=== PATIENT | male | born 1970 | race Caucasian/White ===

== ENCOUNTER 2022-04-12 08:39 | Inpatient (IN) | payer MEDICARE, SELFPAY ==
[2022-04-12 09:25] LABS: #Basophils 0.1 10x3/uL (0.0-0.2); #Eosinphils 0.7 10x3/uL (0.0-0.5); #Monocytes 0.3 10x3/uL (0.0-1.1); #Neutrophils 6.4 10x3/uL (1.5-8.4); %Basophils 0.6 % (0.0-2.0); %Eosinophils 7.1 % (0.0-6.0); %Lymphocytes 20.8 % (18.0-47.0); %Monocytes 3.1 % (0.0-10.0); Hemoglobin 11.5 g/dL (13.5-17.5); Mean Corpuscular HGB CONC 34.2 g/dL (32.0-36.0); Mean Corpuscular Hemoglobin 29.5 pg (27.0-33.0); Mean Corpuscular Volume 86.2 fl (81.2-95.1); Mean Platelet Volume 9.2 fl (7.4-10.4); Platelet Count 182 10x3/uL (150-450); White Blood Cell (WBC) Count 9.4 10x3/uL (3.5-10.5)
[2022-04-12 09:41] LABS: ALT (SGPT) 27 U/L (8-55); AST (SGOT) 15 U/L (5-34); Albumin 3.9 g/dL (3.5-5.0); Alkaline Phosphatase 82 U/L (40-110); Anion Gap 23 mmol/L (10-20); BUN (Urea Nitrogen) 124 mg/dL (8.9-20.6); Bilirubin, Total 0.6 mg/dL (0.2-1.2); Calc. Creatinine Clearance 0 mL/min (70-130); Calcium 8.7 mg/dL (7.8-10.44); Carbon Dioxide 15 mmol/L (22-29); Chloride 100 mmol/L (98-107); Estimated GFR 4; Glucose 156 mg/dL (70-105); Potassium 4.5 mmol/L (3.5-5.1); Protein, Total 6.9 g/dL (6.0-8.3); Sodium 133 mmol/L (136-145)
[2022-04-12 10:01] LABS: CKMB 7.6 ng/mL (0-6.6)
[2022-04-12 10:12] LABS: Magnesium 1.3 mg/dL (1.6-2.6)
[2022-04-12] MEDS ORDERED: Acetaminophen 325 MG TAB PO PRN (11:35)
[2022-04-12] MEDS ORDERED: HYDROcodone/Acetaminophen 5/325 mg Tablet PO PRN (11:35)
[2022-04-12] MEDS ORDERED: Bisacodyl 5 MG TAB PO PRN (11:35)
[2022-04-12] MEDS ORDERED: Ondansetron ODT 4 MG TAB PO PRN (11:35)
[2022-04-12 14:27] LABS: HBSAg Index 0.16 S/CO (0-0.99); Hep B Surf Ag Non-Reactive S/CO (NonReactive); Thyroid Stimulating Hormone 3.7095 uIU/mL (0.35-4.94)
[2022-04-12 15:50] VITALS: BMI 30.4
[2022-04-12] MEDS: Heparin 5,000 UNITS/ML VIAL SC SCH ×2 (17:00→21:34)
[2022-04-12 17:05] LABS: Hemoglobin A1c 5.4 % (4.0-6.0)
[2022-04-12] MEDS ORDERED: Heparin 10,000 UNITS/ 10 ML VIAL SLOW IVP PRN ×3 (17:14→17:45)
[2022-04-12] MEDS: Nicotine 14 MG PATCH TD SCH (19:55)
[2022-04-12] MEDS ORDERED: Lisinopril 5 MG TAB PO SCH (21:00)
[2022-04-12] MEDS ORDERED: Venlafaxine 75 MG TAB PO SCH (21:00)
[2022-04-12] MEDS ORDERED: Famotidine 20 MG TAB PO SCH (21:00)
[2022-04-12] MEDS: Cyclobenzaprine 10 MG TAB PO SCH (21:29)
[2022-04-12 23:20] LABS: Hep B Core Total Ab Non-Reactive (NonReactive); Hep C IgG Ab Non-Reactive (NonReactive); Hep C Index 0.05 S/CO (0-0.79)
[2022-04-12 23:21] LABS: HBSAB Concentration 17.86 mIU/mL; Hep B Surf AB Reactive (NonReactive)
[2022-04-13] MEDS ORDERED: Levothyroxine Sodium 125 MCG TAB PO SCH (06:00)
[2022-04-13 06:08] LABS: #Basophils 0.1 10x3/uL (0.0-0.2); #Eosinphils 0.5 10x3/uL (0.0-0.5); #Monocytes 0.4 10x3/uL (0.0-1.1); #Neutrophils 5.6 10x3/uL (1.5-8.4); %Basophils 0.7 % (0.0-2.0); %Eosinophils 5.5 % (0.0-6.0); %Lymphocytes 20.4 % (18.0-47.0); %Monocytes 5.1 % (0.0-10.0); %Neutrophils 67.9 % (40.0-75.0); Mean Corpuscular HGB CONC 34.4 g/dL (32.0-36.0); Mean Corpuscular Hemoglobin 29.6 pg (27.0-33.0); Mean Platelet Volume 9.4 fl (7.4-10.4); Platelet Count 173 10x3/uL (150-450); RBC Distribution Width 13.1 % (11.5-14.5); Red Blood Cell (RBC) Count 3.72 10x6/uL (4.32-5.72); White Blood Cell (WBC) Count 8.2 10x3/uL (3.5-10.5)
[2022-04-13 06:22] LABS: Albumin 3.6 g/dL (3.5-5.0); Anion Gap 20 mmol/L (10-20); BUN (Urea Nitrogen) 83 mg/dL (8.9-20.6); BUN/Creatinine Ratio 8.04; Calc. Creatinine Clearance 12 mL/min (70-130); Calcium 9.5 mg/dL (7.8-10.44); Carbon Dioxide 21 mmol/L (22-29); Chloride 100 mmol/L (98-107); Estimated GFR 6; Glucose 100 mg/dL (70-105); Phosphorus 8.8 mg/dL (2.3-4.7); Potassium 4.5 mmol/L (3.5-5.1); Sodium 136 mmol/L (136-145)
[2022-04-13] MEDS: Heparin 5,000 UNITS/ML VIAL SC SCH ×2 (09:33→15:05)
[2022-04-13] MEDS: Cyclobenzaprine 10 MG TAB PO SCH (09:34)
[2022-04-13 10:28] LABS: SARS-CoV-2 NAA Rapid Test Not Detected (NotDetected)
[2022-04-13] MEDS: Nicotine 14 MG PATCH TD SCH (15:06)
[2022-04-13 17:55] VITALS: BP 135/82; TEMP 98.4
== END 2022-04-13 17:45 | disposition home or self-care (01) | DRG 684 ==
LOC: CSHERS 08:39 → CSHTELE 15:39
PROVIDERS: ADMIT Family Medicine; ATTEND Nurse Practitioner Family
PROC: 5A1D70Z Performance of Urinary Filtration, Intermittent, Less than 6 Hours Per Day (ICD-10-PCS; principal; 2022-04-13)
DX: N18.6 End stage renal disease (principal); Z20.822 Contact with and (suspected) exposure to COVID-19; E03.9 Hypothyroidism, unspecified; R77.8 Other specified abnormalities of plasma proteins; F17.210 Nicotine dependence, cigarettes, uncomplicated; F41.9 Anxiety disorder, unspecified; I10 Essential (primary) hypertension; E78.5 Hyperlipidemia, unspecified; F32.A Depression, unspecified; E11.42 Type 2 diabetes mellitus with diabetic polyneuropathy; M10.9 Gout, unspecified; G43.909 Migraine, unspecified, not intractable, without status migrainosus; E66.01 Morbid (severe) obesity due to excess calories; Z68.30 Body mass index [BMI] 30.0-30.9, adult; Z99.2 Dependence on renal dialysis; Z91.15 Patient's noncompliance with renal dialysis; Z71.6 Tobacco abuse counseling; Z90.49 Acquired absence of other specified parts of digestive tract; Z90.5 Acquired absence of kidney; Z79.890 Hormone replacement therapy; Z79.899 Other long term (current) drug therapy; Z79.4 Long term (current) use of insulin
CPT/HCPCS: 36415; 71045; 80053; 80069; 82553; 83036; 83735; 83880; 84443; 84484; 85025; 86704; 90935; 93005; 93010; G0257; J1644; Q0162; U0002

== ENCOUNTER 2022-05-16 07:03 | Inpatient (IN) | payer MEDICARE ==
[2022-05-16 07:54] LABS: #Eosinphils 0.3 10x3/uL (0.0-0.5); #Monocytes 0.5 10x3/uL (0.0-1.1); #Neutrophils 9.7 10x3/uL (1.5-8.4); %Basophils 0.3 % (0.0-2.0); %Eosinophils 2.6 % (0.0-6.0); %Lymphocytes 10.3 % (18.0-47.0); %Monocytes 4.4 % (0.0-10.0); %Neutrophils 81.8 % (40.0-75.0); Hemoglobin 9.1 g/dL (13.5-17.5); Mean Corpuscular HGB CONC 34.9 g/dL (32.0-36.0); Mean Corpuscular Hemoglobin 29.8 pg (27.0-33.0); Mean Corpuscular Volume 85.6 fl (81.2-95.1); Platelet Count 173 10x3/uL (150-450); RBC Distribution Width 13.2 % (11.5-14.5); Red Blood Cell (RBC) Count 3.05 10x6/uL (4.32-5.72); White Blood Cell (WBC) Count 11.8 10x3/uL (3.5-10.5)
[2022-05-16 08:21] LABS: ALT (SGPT) 34 U/L (8-55); AST (SGOT) 15 U/L (5-34); Albumin 3.7 g/dL (3.5-5.0); Alkaline Phosphatase 102 U/L (40-110); Anion Gap 30 mmol/L (10-20); Bilirubin, Total 0.7 mg/dL (0.2-1.2); Calc. Creatinine Clearance 0 mL/min (70-130); Carbon Dioxide 12 mmol/L (22-29); Chloride 95 mmol/L (98-107); Estimated GFR 3; Globulin 2.8 g/dL (2.4-3.5); Glucose 113 mg/dL (70-105); Magnesium 1.2 mg/dL (1.6-2.6); Potassium 4.6 mmol/L (3.5-5.1); Protein, Total 6.5 g/dL (6.0-8.3); Sodium 132 mmol/L (136-145)
[2022-05-16 08:26] LABS: Phosphorus 14.8 mg/dL (2.3-4.7)
[2022-05-16 08:45] LABS: BUN (Urea Nitrogen) 150 mg/dL (8.9-20.6)
[2022-05-16] MEDS ORDERED: Ondansetron PF 4 MG/2 ML Vial IVP PRN (09:49)
[2022-05-16] MEDS ORDERED: Acetaminophen 325 MG TAB PO PRN (09:49)
[2022-05-16] MEDS ORDERED: Dextrose 50% Abboject 50 ML SYRINGE SLOW IVP PRN (10:17)
[2022-05-16] MEDS ORDERED: HumaLOG 300 UNITS/3 ML VIAL SC PRN ×2 (10:17)
[2022-05-16] MEDS ORDERED: Dextrose 5% in Water 1,000 ML IV PRN (10:17)
[2022-05-16] MEDS ORDERED: Magnesium 2 GM/50 ML(in water) 2 GM in Premix Bag 1 BAG IVPB SCH ×2 (10:30→22:30)
[2022-05-16] MEDS ORDERED: Heparin 10,000 UNITS/ 10 ML VIAL SLOW IVP PRN (11:49)
[2022-05-16 13:01] LABS: Glucose 104 mg/dL (70-105)
[2022-05-16] MEDS: Gabapentin 300 MG CAP PO SCH (17:47)
[2022-05-16] MEDS: Nicotine 14 MG PATCH TD SCH (17:48)
[2022-05-16 18:41] LABS: Glucose 132 mg/dL (70-105)
[2022-05-16] MEDS ORDERED: Venlafaxine 75 MG TAB PO SCH (21:00)
[2022-05-16] MEDS ORDERED: Lisinopril 10 MG TAB PO SCH (21:00)
[2022-05-16 21:47] LABS: Glucose 98 mg/dL (70-105)
[2022-05-16] MEDS: Ondansetron ODT 4 MG TAB PO PRN (21:56)
[2022-05-17] MEDS: Gabapentin 300 MG CAP PO SCH ×3 (00:52→13:11)
[2022-05-17 05:06] LABS: #Eosinphils 0.2 10x3/uL (0.0-0.5); #Monocytes 0.4 10x3/uL (0.0-1.1); #Neutrophils 8.5 10x3/uL (1.5-8.4); %Basophils 0.3 % (0.0-2.0); %Eosinophils 1.9 % (0.0-6.0); %Lymphocytes 6.3 % (18.0-47.0); %Monocytes 3.6 % (0.0-10.0); %Neutrophils 87.3 % (40.0-75.0); Mean Corpuscular HGB CONC 34.4 g/dL (32.0-36.0); Mean Corpuscular Hemoglobin 29.6 pg (27.0-33.0); Mean Corpuscular Volume 86.2 fl (81.2-95.1); Mean Platelet Volume 10.3 fl (7.4-10.4); Platelet Count 162 10x3/uL (150-450); RBC Distribution Width 13.2 % (11.5-14.5); Red Blood Cell (RBC) Count 3.04 10x6/uL (4.32-5.72); White Blood Cell (WBC) Count 9.8 10x3/uL (3.5-10.5)
[2022-05-17 05:22] LABS: Anion Gap 24 mmol/L (10-20); BUN (Urea Nitrogen) 96 mg/dL (8.9-20.6); Calc. Creatinine Clearance 0 mL/min (70-130); Calcium 9.7 mg/dL (7.8-10.44); Carbon Dioxide 17 mmol/L (22-29); Chloride 96 mmol/L (98-107); Estimated GFR 5; Glucose 117 mg/dL (70-105); Magnesium 1.8 mg/dL (1.6-2.6); Potassium 4.1 mmol/L (3.5-5.1); Sodium 133 mmol/L (136-145)
[2022-05-17] MEDS ORDERED: Levothyroxine Sodium 125 MCG TAB PO SCH (06:00)
[2022-05-17] MEDS: Ondansetron ODT 4 MG TAB PO PRN ×3 (08:29→22:49)
[2022-05-17 09:05] LABS: Glucose 109 mg/dL (70-105)
[2022-05-17 12:01] VITALS: BMI 28.4
[2022-05-17 12:23] LABS: Glucose 98 mg/dL (70-105)
[2022-05-17] MEDS: Sevelamer Carbonate 800 MG TAB PO SCH ×2 (13:10→16:50)
[2022-05-17] MEDS: Nicotine 14 MG PATCH TD SCH (13:13)
[2022-05-17] MEDS: Nicotine 14 MG PATCH TD PRN (16:51)
[2022-05-17 18:18] LABS: Glucose 86 mg/dL (70-105)
[2022-05-18 05:17] LABS: #Eosinphils 0.3 10x3/uL (0.0-0.5); #Monocytes 0.4 10x3/uL (0.0-1.1); #Neutrophils 5.3 10x3/uL (1.5-8.4); %Basophils 0.4 % (0.0-2.0); %Eosinophils 4.4 % (0.0-6.0); %Lymphocytes 17.6 % (18.0-47.0); %Monocytes 5.3 % (0.0-10.0); %Neutrophils 71.9 % (40.0-75.0); Hemoglobin 8.7 g/dL (13.5-17.5); Mean Corpuscular HGB CONC 34.7 g/dL (32.0-36.0); Mean Corpuscular Hemoglobin 29.8 pg (27.0-33.0); Mean Platelet Volume 10.1 fl (7.4-10.4); Platelet Count 175 10x3/uL (150-450); RBC Distribution Width 13.2 % (11.5-14.5); Red Blood Cell (RBC) Count 2.92 10x6/uL (4.32-5.72); White Blood Cell (WBC) Count 7.3 10x3/uL (3.5-10.5)
[2022-05-18 05:26] LABS: Anion Gap 19 mmol/L (10-20); BUN (Urea Nitrogen) 49 mg/dL (8.9-20.6); Calc. Creatinine Clearance 16 mL/min (70-130); Calcium 9.7 mg/dL (7.8-10.44); Carbon Dioxide 24 mmol/L (22-29); Chloride 96 mmol/L (98-107); Estimated GFR 8; Glucose 83 mg/dL (70-105); Potassium 3.8 mmol/L (3.5-5.1); Sodium 135 mmol/L (136-145)
[2022-05-18] MEDS: Sevelamer Carbonate 800 MG TAB PO SCH ×3 (08:11→18:33)
[2022-05-18] MEDS ORDERED: EPOETIN ALFA-EPBX (ESRD) 4,000 UNIT/ML VIAL SC SCH (09:00)
[2022-05-18] MEDS ORDERED: Sodium Chloride 0.9% 100 ML BAG IVPB PRN (09:45)
[2022-05-18] MEDS: hydrOXYzine 25 MG TAB PO PRN (20:46)
[2022-05-18] MEDS: Nicotine 14 MG PATCH TD PRN (20:51)
[2022-05-19 04:11] LABS: #Basophils 0.1 10x3/uL (0.0-0.2); #Eosinphils 0.4 10x3/uL (0.0-0.5); #Monocytes 0.5 10x3/uL (0.0-1.1); #Neutrophils 5.2 10x3/uL (1.5-8.4); %Basophils 0.6 % (0.0-2.0); %Eosinophils 4.7 % (0.0-6.0); %Lymphocytes 25.3 % (18.0-47.0); %Monocytes 6.1 % (0.0-10.0); %Neutrophils 62.8 % (40.0-75.0); Hemoglobin 8.7 g/dL (13.5-17.5); Mean Corpuscular HGB CONC 34.3 g/dL (32.0-36.0); Mean Corpuscular Volume 87.6 fl (81.2-95.1); Mean Platelet Volume 9.6 fl (7.4-10.4); Platelet Count 180 10x3/uL (150-450); RBC Distribution Width 13.2 % (11.5-14.5); White Blood Cell (WBC) Count 8.3 10x3/uL (3.5-10.5)
[2022-05-19 04:21] LABS: Anion Gap 15 mmol/L (10-20); BUN (Urea Nitrogen) 24 mg/dL (8.9-20.6); Calc. Creatinine Clearance 23 mL/min (70-130); Calcium 9.5 mg/dL (7.8-10.44); Carbon Dioxide 26 mmol/L (22-29); Chloride 96 mmol/L (98-107); Estimated GFR 13; Glucose 83 mg/dL (70-105); Potassium 3.3 mmol/L (3.5-5.1); Sodium 134 mmol/L (136-145)
[2022-05-19] MEDS: hydrOXYzine 25 MG TAB PO PRN ×2 (06:18→12:49)
[2022-05-19] MEDS: Sevelamer Carbonate 800 MG TAB PO SCH ×2 (08:07→12:36)
[2022-05-19] MEDS ORDERED: Heparin 10,000 UNITS/ 10 ML VIAL SLOW IVP PRN (11:30)
[2022-05-19 14:57] VITALS: BP 115/70; TEMP 98.8
== END 2022-05-19 14:30 | disposition home or self-care (01) | DRG 640 ==
LOC: CSHERS 07:03 → CSHERHOLD 12:09 → CSHTELE 16:40 → OBSVTOIN 05-18 08:10
PROVIDERS: ADMIT Family Medicine; ATTEND Internal Medicine
PROC: 5A1D70Z Performance of Urinary Filtration, Intermittent, Less than 6 Hours Per Day (ICD-10-PCS; principal; 2022-05-18)
DX: E87.70 Fluid overload, unspecified (principal); N18.6 End stage renal disease; I12.0 Hypertensive chronic kidney disease with stage 5 chronic kidney disease or end stage renal disease; N25.81 Secondary hyperparathyroidism of renal origin; E83.42 Hypomagnesemia; E11.22 Type 2 diabetes mellitus with diabetic chronic kidney disease; E87.20 Acidosis, unspecified; E78.5 Hyperlipidemia, unspecified; F17.210 Nicotine dependence, cigarettes, uncomplicated; Z60.2 Problems related to living alone; F41.9 Anxiety disorder, unspecified; E03.9 Hypothyroidism, unspecified; D63.1 Anemia in chronic kidney disease; F32.A Depression, unspecified; Z90.5 Acquired absence of kidney; Z79.4 Long term (current) use of insulin; Z79.890 Hormone replacement therapy; Z91.151 Patient's noncompliance with renal dialysis due to financial hardship; Z99.2 Dependence on renal dialysis; Z79.899 Other long term (current) drug therapy; Z90.49 Acquired absence of other specified parts of digestive tract; Z56.0 Unemployment, unspecified; Z71.6 Tobacco abuse counseling
CPT/HCPCS: 36415; 36416; 71045; 80048; 80053; 82947; 83735; 83880; 84100; 84443; 85025; 90935; 93005; 94760; 96374; 96375; G0257; G0378; J1644; J2405; J3475; Q0162; Q5105

== ENCOUNTER 2022-07-15 06:11 | Inpatient (IN) | payer MEDICARE ==
[2022-07-15] MEDS ORDERED: Nitroglycerin 2% Ointment 1 INCH/1 GM Packet ONE (06:39)
[2022-07-15] MEDS ORDERED: Aspirin Chewable 81 MG TAB ONE (06:47)
[2022-07-15 07:03] LABS: #Eosinphils 0.1 10x3/uL (0.0-0.5); #Monocytes 0.3 10x3/uL (0.0-1.1); #Neutrophils 9.2 10x3/uL (1.5-8.4); %Basophils 0.2 % (0.0-2.0); %Eosinophils 1.1 % (0.0-6.0); %Lymphocytes 3.8 % (18.0-47.0); %Monocytes 2.6 % (0.0-10.0); %Neutrophils 91.7 % (40.0-75.0); Hemoglobin 7.9 g/dL (13.5-17.5); Mean Corpuscular HGB CONC 34.1 g/dL (32.0-36.0); Mean Corpuscular Hemoglobin 30.4 pg (27.0-33.0); Mean Corpuscular Volume 89.2 fl (81.2-95.1); Mean Platelet Volume 9.8 fl (7.4-10.4); Platelet Count 147 10x3/uL (150-450); RBC Distribution Width 13.5 % (11.5-14.5); White Blood Cell (WBC) Count 10.1 10x3/uL (3.5-10.5)
[2022-07-15 07:15] LABS: ALT (SGPT) 16 U/L (8-55); AST (SGOT) 13 U/L (5-34); Albumin 3.8 g/dL (3.5-5.0); Alkaline Phosphatase 98 U/L (40-110); Anion Gap 31 mmol/L (10-20); Bilirubin, Total 1.2 mg/dL (0.2-1.2); Calc. Creatinine Clearance 0 mL/min (70-130); Calcium 9.4 mg/dL (7.8-10.44); Chloride 96 mmol/L (98-107); Estimated GFR 3; Globulin 3.4 g/dL (2.4-3.5); Glucose 114 mg/dL (70-105); Lipase 21 U/L (8-78); Potassium 5.2 mmol/L (3.5-5.1); Protein, Total 7.2 g/dL (6.0-8.3); Sodium 131 mmol/L (136-145)
[2022-07-15 07:20] LABS: Carbon Dioxide 9 mmol/L (22-29)
[2022-07-15 07:25] LABS: BUN (Urea Nitrogen) 142 mg/dL (8.9-20.6)
[2022-07-15 07:37] LABS: CKMB 16.5 ng/mL (0-6.6)
[2022-07-15] MEDS ORDERED: Lidocaine/Transparent Dressing 1 EACH KIT ONE (09:43)
[2022-07-15] MEDS ORDERED: Ondansetron ODT 4 MG TAB PO PRN (09:47)
[2022-07-15] MEDS ORDERED: Calcium Carbonate 500 MG ChewTAB PO PRN (09:47)
[2022-07-15] MEDS ORDERED: Ondansetron PF 4 MG/2 ML Vial IVP PRN (09:47)
[2022-07-15] MEDS ORDERED: Acetaminophen 325 MG TAB PO PRN (09:47)
[2022-07-15] MEDS ORDERED: Senokot S 8.6-50 MG TAB PO PRN (09:47)
[2022-07-15] MEDS ORDERED: Magnesium Sulfate 4 GM in Sodium Chloride 0.9% 250 ML 250 ML IVPB SCH (10:00)
[2022-07-15 10:29] LABS: HBSAg Index 0.12 S/CO (0-0.99); Hep B Surf Ag Non-Reactive S/CO (NonReactive)
[2022-07-15] MEDS ORDERED: Morphine 4 MG/ML VIAL ONE (10:30)
[2022-07-15] MEDS ORDERED: Morphine 4 MG/ML VIAL SLOW IVP SCH (10:30)
[2022-07-15 11:25] LABS: Troponin I 0.196 ng/mL (< 0.028)
[2022-07-15] MEDS ORDERED: Heparin 10,000 UNITS/ 10 ML VIAL FS PRN (11:29)
[2022-07-15] MEDS ORDERED: EPOETIN ALFA-EPBX (ESRD) 4,000 UNITS/ML VIAL SC SCH ×2 (12:00→17:30)
[2022-07-15] MEDS ORDERED: Sodium Bicarb 50 MEQ/50 ML Abboject 8.4% SYRINGE IVP SCH (12:30)
[2022-07-15 15:49] LABS: Troponin I 0.203 ng/mL (< 0.028)
[2022-07-15 15:50] LABS: Anion Gap 21 mmol/L (10-20); BUN (Urea Nitrogen) 69 mg/dL (8.9-20.6); Calc. Creatinine Clearance 0 mL/min (70-130); Calcium 9.9 mg/dL (7.8-10.44); Carbon Dioxide 24 mmol/L (22-29); Chloride 96 mmol/L (98-107); Estimated GFR 6; Glucose 88 mg/dL (70-105); Magnesium 1.4 mg/dL (1.6-2.6); Potassium 3.8 mmol/L (3.5-5.1); Sodium 137 mmol/L (136-145)
[2022-07-15 16:09] LABS: ALV-art Gradient 101.515 mmHg (0-20); Actual Bicarbonate (HCO3a) 25.6 mEq/L (22-28); Base Excess (BEa) 3.3 mEq/L (-2.0 to +3.0); CO2 Tension 29.7 mmHg (35.0-45.0); Calcium, Ionized (arterial) 1.05 mmol/L (1.12-1.30); Hematocrit-ABG 25 % (42.0-52.0); Hemoglobin (Hb) 8.4 g/dL (14.0-18.0); Potassium - ABG Lab 3.73 mmol/L (3.70-5.30); Puncture Site RBA; pH, Arterial 7.553 (7.35-7.45)
[2022-07-15 16:28] VITALS: BMI 28.5
[2022-07-15] MEDS: Sevelamer Carbonate 800 MG TAB PO SCH ×2 (17:22→19:15)
[2022-07-15] MEDS: Heparin 5,000 UNITS/ML VIAL SC SCH ×2 (17:23→21:33)
[2022-07-15 17:37] LABS: Hep B Core Total Ab Non-Reactive (NonReactive); Hep B Core Total Index 0.16 S/CO (0-0.79); Hep C IgG Ab Non-Reactive S/CO (NonReactive)
[2022-07-15 17:40] LABS: HBSAB Concentration 20.78 mIU/mL; Hep B Surf AB Reactive (NonReactive)
[2022-07-15] MEDS: Magnesium 2 GM/50 ML(in water) 2 GM in Premix Bag 1 BAG IVPB SCH ×4 (18:12→21:31)
[2022-07-15] MEDS: Sodium Bicarbonate Tab 325 MG TAB PO SCH ×2 (18:13→21:34)
[2022-07-15 18:29] LABS: Troponin I 0.203 ng/mL (< 0.028)
[2022-07-15] MEDS ORDERED: Nicotine 7 MG PATCH TOP SCH (20:45)
[2022-07-15] MEDS: Nitroglycerin 2% Ointment 1 INCH/1 GM Packet TOP SCH (21:34)
[2022-07-15 22:26] LABS: Troponin I 0.207 ng/mL (< 0.028)
[2022-07-16] MEDS: Morphine 2 MG/ML VIAL SLOW IVP PRN ×2 (01:44→06:37)
[2022-07-16 03:47] LABS: #Monocytes 0.3 10x3/uL (0.0-1.1); #Neutrophils 7.6 10x3/uL (1.5-8.4); %Basophils 0.1 % (0.0-2.0); %Eosinophils 0.4 % (0.0-6.0); %Lymphocytes 7.6 % (18.0-47.0); %Neutrophils 88.2 % (40.0-75.0); Hemoglobin 7.9 g/dL (13.5-17.5); Mean Corpuscular HGB CONC 34.8 g/dL (32.0-36.0); Mean Corpuscular Hemoglobin 30.4 pg (27.0-33.0); Mean Corpuscular Volume 87.3 fl (81.2-95.1); Mean Platelet Volume 9.5 fl (7.4-10.4); Platelet Count 140 10x3/uL (150-450); RBC Distribution Width 13.4 % (11.5-14.5); White Blood Cell (WBC) Count 8.6 10x3/uL (3.5-10.5)
[2022-07-16 04:00] LABS: ALT (SGPT) 18 U/L (8-55); AST (SGOT) 16 U/L (5-34); Albumin 3.6 g/dL (3.5-5.0); Alkaline Phosphatase 90 U/L (40-110); Anion Gap 19 mmol/L (10-20); BUN (Urea Nitrogen) 56 mg/dL (8.9-20.6); Bilirubin, Total 1.3 mg/dL (0.2-1.2); Calc. Creatinine Clearance 15 mL/min (70-130); Calcium 9.9 mg/dL (7.8-10.44); Carbon Dioxide 26 mmol/L (22-29); Chloride 97 mmol/L (98-107); Estimated GFR 7; Globulin 3.5 g/dL (2.4-3.5); Glucose 103 mg/dL (70-105); Magnesium 2.2 mg/dL (1.6-2.6); Potassium 3.7 mmol/L (3.5-5.1); Protein, Total 7.1 g/dL (6.0-8.3); Sodium 138 mmol/L (136-145)
[2022-07-16 04:03] LABS: Cardiac Risk 3.3 (Less than 4.5); Cholesterol 105 mg/dl (< 200 Desired); HDL Cholesterol 32 mg/dL (>60 Neg Risk); LDL Cholesterol, Calculated 60 mg/dL; Phosphorus 5.1 mg/dL (2.3-4.7); Triglycerides 64 mg/dL (Less than 150)
[2022-07-16] MEDS: Guaifenesin DM 100-10/5 ML UDCUP PO PRN ×2 (06:37)
[2022-07-16] MEDS: Aspirin 81 mg Enteric Coated Tablet PO SCH (09:12)
[2022-07-16] MEDS: Nitroglycerin 2% Ointment 1 INCH/1 GM Packet TOP SCH ×2 (09:12→20:36)
[2022-07-16] MEDS: Sodium Bicarbonate Tab 325 MG TAB PO SCH ×3 (09:12→20:35)
[2022-07-16] MEDS: Sevelamer Carbonate 800 MG TAB PO SCH ×3 (09:13→17:48)
[2022-07-16] MEDS: Heparin 5,000 UNITS/ML VIAL SC SCH ×3 (09:27→20:36)
[2022-07-16] MEDS ORDERED: Carvedilol 3.125 MG TAB PO SCH (10:45)
[2022-07-16 12:08] LABS: Hemoglobin A1c 5.3 % (4.0-6.0)
[2022-07-16] MEDS: Carvedilol 3.125 MG TAB PO SCH (17:48)
[2022-07-16] MEDS: Atorvastatin Calcium 20 MG TAB PO SCH (20:35)
[2022-07-17 04:53] LABS: #Eosinphils 0.2 10x3/uL (0.0-0.5); #Monocytes 0.4 10x3/uL (0.0-1.1); #Neutrophils 7.1 10x3/uL (1.5-8.4); %Basophils 0.3 % (0.0-2.0); %Eosinophils 1.9 % (0.0-6.0); %Lymphocytes 10.8 % (18.0-47.0); %Monocytes 4.7 % (0.0-10.0); %Neutrophils 81.7 % (40.0-75.0); Hemoglobin 7.5 g/dL (13.5-17.5); Mean Corpuscular HGB CONC 32.6 g/dL (32.0-36.0); Mean Corpuscular Hemoglobin 30.2 pg (27.0-33.0); Mean Corpuscular Volume 92.7 fl (81.2-95.1); Mean Platelet Volume 9.8 fl (7.4-10.4); Platelet Count 128 10x3/uL (150-450); RBC Distribution Width 13.5 % (11.5-14.5); Red Blood Cell (RBC) Count 2.48 10x6/uL (4.32-5.72); White Blood Cell (WBC) Count 8.7 10x3/uL (3.5-10.5)
[2022-07-17 05:16] LABS: Anion Gap 17 mmol/L (10-20); BUN (Urea Nitrogen) 45 mg/dL (8.9-20.6); Calc. Creatinine Clearance 15 mL/min (70-130); Calcium 9.8 mg/dL (7.8-10.44); Carbon Dioxide 31 mmol/L (22-29); Chloride 94 mmol/L (98-107); Estimated GFR 7; Glucose 102 mg/dL (70-105); Magnesium 1.9 mg/dL (1.6-2.6); Phosphorus 6.5 mg/dL (2.3-4.7); Potassium 4.2 mmol/L (3.5-5.1); Sodium 138 mmol/L (136-145)
[2022-07-17] MEDS: Morphine 2 MG/ML VIAL SLOW IVP PRN (05:49)
[2022-07-17] MEDS: Heparin 5,000 UNITS/ML VIAL SC SCH ×3 (08:24→21:14)
[2022-07-17] MEDS: Sevelamer Carbonate 800 MG TAB PO SCH ×3 (08:24→16:02)
[2022-07-17] MEDS: Sodium Bicarbonate Tab 325 MG TAB PO SCH (08:25)
[2022-07-17] MEDS: Aspirin 81 mg Enteric Coated Tablet PO SCH (08:25)
[2022-07-17] MEDS: Nitroglycerin 2% Ointment 1 INCH/1 GM Packet TOP SCH ×2 (08:39→21:15)
[2022-07-17] MEDS: Carvedilol 3.125 MG TAB PO SCH ×2 (08:39→16:02)
[2022-07-17] MEDS ORDERED: Communication Order-Pharmacy FS SCH (10:30)
[2022-07-17] MEDS: Nicotine 14 MG PATCH TD SCH (12:58)
[2022-07-17] MEDS: Atorvastatin Calcium 20 MG TAB PO SCH (21:14)
[2022-07-18 03:43] LABS: INR-International Normal Ratio 1.1; PTT 27.3 sec (22.0-33.0); Prothrombin Time 11.5 sec (9.5-12.1)
[2022-07-18 03:44] LABS: #Eosinphils 0.3 10x3/uL (0.0-0.5); #Monocytes 0.4 10x3/uL (0.0-1.1); %Basophils 0.4 % (0.0-2.0); %Eosinophils 3.3 % (0.0-6.0); %Monocytes 3.9 % (0.0-10.0); %Neutrophils 78.8 % (40.0-75.0); Mean Corpuscular HGB CONC 31.5 g/dL (32.0-36.0); Mean Corpuscular Hemoglobin 29.9 pg (27.0-33.0); Mean Corpuscular Volume 94.9 fl (81.2-95.1); Mean Platelet Volume 10.4 fl (7.4-10.4); Platelet Count 127 10x3/uL (150-450); RBC Distribution Width 13.1 % (11.5-14.5); Red Blood Cell (RBC) Count 2.34 10x6/uL (4.32-5.72); White Blood Cell (WBC) Count 8.9 10x3/uL (3.5-10.5)
[2022-07-18 03:49] LABS: ALT (SGPT) 12 U/L (8-55); AST (SGOT) 11 U/L (5-34); Albumin 3.1 g/dL (3.5-5.0); Alkaline Phosphatase 74 U/L (40-110); Anion Gap 15 mmol/L (10-20); BUN (Urea Nitrogen) 28 mg/dL (8.9-20.6); Bilirubin, Total 0.8 mg/dL (0.2-1.2); Calc. Creatinine Clearance 20 mL/min (70-130); Calcium 9.4 mg/dL (7.8-10.44); Carbon Dioxide 29 mmol/L (22-29); Chloride 96 mmol/L (98-107); Estimated GFR 11; Globulin 3.2 g/dL (2.4-3.5); Glucose 102 mg/dL (70-105); Magnesium 1.7 mg/dL (1.6-2.6); Protein, Total 6.3 g/dL (6.0-8.3); Sodium 136 mmol/L (136-145)
[2022-07-18] MEDS ORDERED: Carvedilol 3.125 MG TAB PO SCH (05:30)
[2022-07-18] MEDS: Aspirin 81 mg Enteric Coated Tablet PO SCH (06:50)
[2022-07-18] MEDS: Heparin 5,000 UNITS/ML VIAL SC SCH ×3 (08:09→20:24)
[2022-07-18] MEDS: Sevelamer Carbonate 800 MG TAB PO SCH ×4 (08:09→17:55)
[2022-07-18] MEDS: Nitroglycerin 2% Ointment 1 INCH/1 GM Packet TOP SCH ×2 (08:09→20:24)
[2022-07-18] MEDS ORDERED: Lidocaine 1% MPF 2 ML VIAL ONE (08:43)
[2022-07-18] MEDS ORDERED: Nitroglycerin 50 MG/250 ML BOT 250 ML ONE (08:43)
[2022-07-18] MEDS ORDERED: Heparin 10,000 UNITS/ 10 ML VIAL ONE (08:44)
[2022-07-18] MEDS ORDERED: Lidocaine 1% (PF) 30 ML VIAL ONE (08:44)
[2022-07-18] MEDS ORDERED: Sodium Chloride 0.9% 1,000 ML ONE (08:45)
[2022-07-18] MEDS ORDERED: Adenosine 6 MG/2 ML VIAL ONE (08:45)
[2022-07-18] MEDS ORDERED: Verapamil 5 MG/2 ML VIAL ONE (08:45)
[2022-07-18] MEDS ORDERED: Magnesium 2 GM/50 ML(in water) 2 GM in Premix Bag 1 BAG IVPB SCH ×2 (09:00→11:15)
[2022-07-18] MEDS ORDERED: fentaNYL 50 mcg/mL 1 mL Vial ONE (09:23)
[2022-07-18] MEDS ORDERED: Midazolam HCl 2 mg/2 ml Vial ONE (09:24)
[2022-07-18] MEDS ORDERED: Iopamidol 300 61% 100 ML VIAL FS ONE (09:32)
[2022-07-18] MEDS ORDERED: Acetaminophen/Codeine 30-300mg Tablet PO PRN ×2 (09:57)
[2022-07-18] MEDS ORDERED: Nitroglycerin 0.4 MG TAB (25 Tab Bottle) SL PRN (09:57)
[2022-07-18] MEDS ORDERED: Sodium Chloride 0.9% 200 ML IV PRN (09:57)
[2022-07-18] MEDS: Nicotine 14 MG PATCH TD SCH (12:33)
[2022-07-18] MEDS: Carvedilol 3.125 MG TAB PO SCH (17:28)
[2022-07-18] MEDS: Atorvastatin Calcium 20 MG TAB PO SCH (20:24)
[2022-07-19 04:03] LABS: #Basophils 0.1 10x3/uL (0.0-0.2); #Eosinphils 0.4 10x3/uL (0.0-0.5); #Monocytes 0.4 10x3/uL (0.0-1.1); #Neutrophils 5.9 10x3/uL (1.5-8.4); %Basophils 0.6 % (0.0-2.0); %Eosinophils 5.1 % (0.0-6.0); %Lymphocytes 14.1 % (18.0-47.0); %Monocytes 5.2 % (0.0-10.0); %Neutrophils 74.2 % (40.0-75.0); Hemoglobin 8.4 g/dL (13.5-17.5); Mean Corpuscular HGB CONC 32.8 g/dL (32.0-36.0); Mean Corpuscular Hemoglobin 30.5 pg (27.0-33.0); Mean Corpuscular Volume 93.1 fl (81.2-95.1); Mean Platelet Volume 10.1 fl (7.4-10.4); Platelet Count 123 10x3/uL (150-450); RBC Distribution Width 13.8 % (11.5-14.5); Red Blood Cell (RBC) Count 2.75 10x6/uL (4.32-5.72); White Blood Cell (WBC) Count 7.9 10x3/uL (3.5-10.5)
[2022-07-19 04:16] LABS: Anion Gap 13 mmol/L (10-20); BUN (Urea Nitrogen) 22 mg/dL (8.9-20.6); Calc. Creatinine Clearance 24 mL/min (70-130); Calcium 9.7 mg/dL (7.8-10.44); Carbon Dioxide 29 mmol/L (22-29); Chloride 97 mmol/L (98-107); Estimated GFR 14; Glucose 93 mg/dL (70-105); Potassium 4.2 mmol/L (3.5-5.1); Sodium 135 mmol/L (136-145)
[2022-07-19] MEDS: Heparin 5,000 UNITS/ML VIAL SC SCH ×3 (08:03→21:34)
[2022-07-19] MEDS: Sevelamer Carbonate 800 MG TAB PO SCH ×3 (08:04→18:06)
[2022-07-19] MEDS: Aspirin 81 mg Enteric Coated Tablet PO SCH (08:05)
[2022-07-19] MEDS: Carvedilol 3.125 MG TAB PO SCH ×2 (08:05→18:06)
[2022-07-19] MEDS: Nitroglycerin 2% Ointment 1 INCH/1 GM Packet TOP SCH ×2 (08:05→21:47)
[2022-07-19] MEDS: Nicotine 14 MG PATCH TD SCH (13:16)
[2022-07-19] MEDS: Atorvastatin Calcium 20 MG TAB PO SCH (21:36)
[2022-07-20 04:24] LABS: #Eosinphils 0.5 10x3/uL (0.0-0.5); #Monocytes 0.5 10x3/uL (0.0-1.1); #Neutrophils 6.5 10x3/uL (1.5-8.4); %Basophils 0.5 % (0.0-2.0); %Eosinophils 5.4 % (0.0-6.0); %Lymphocytes 14.7 % (18.0-47.0); %Monocytes 5.5 % (0.0-10.0); %Neutrophils 73.4 % (40.0-75.0); Hemoglobin 7.8 g/dL (13.5-17.5); Mean Corpuscular HGB CONC 32.4 g/dL (32.0-36.0); Mean Corpuscular Hemoglobin 30.5 pg (27.0-33.0); Mean Corpuscular Volume 94.1 fl (81.2-95.1); Mean Platelet Volume 9.9 fl (7.4-10.4); Platelet Count 127 10x3/uL (150-450); RBC Distribution Width 13.4 % (11.5-14.5); Red Blood Cell (RBC) Count 2.56 10x6/uL (4.32-5.72); White Blood Cell (WBC) Count 8.8 10x3/uL (3.5-10.5)
[2022-07-20 04:39] LABS: ALT (SGPT) 12 U/L (8-55); AST (SGOT) 12 U/L (5-34); Albumin 3.1 g/dL (3.5-5.0); Alkaline Phosphatase 94 U/L (40-110); Anion Gap 15 mmol/L (10-20); BUN (Urea Nitrogen) 18 mg/dL (8.9-20.6); Calc. Creatinine Clearance 26 mL/min (70-130); Calcium 9.1 mg/dL (7.8-10.44); Carbon Dioxide 30 mmol/L (22-29); Chloride 95 mmol/L (98-107); Estimated GFR 15; Globulin 2.8 g/dL (2.4-3.5); Glucose 111 mg/dL (70-105); Potassium 3.9 mmol/L (3.5-5.1); Protein, Total 5.9 g/dL (6.0-8.3); Sodium 136 mmol/L (136-145)
[2022-07-20] MEDS: Sevelamer Carbonate 800 MG TAB PO SCH ×2 (09:34→16:32)
[2022-07-20] MEDS: Aspirin 81 mg Enteric Coated Tablet PO SCH (09:35)
[2022-07-20] MEDS: Carvedilol 3.125 MG TAB PO SCH (09:35)
[2022-07-20] MEDS: Heparin 5,000 UNITS/ML VIAL SC SCH ×2 (09:39→16:33)
[2022-07-20] MEDS: Nitroglycerin 2% Ointment 1 INCH/1 GM Packet TOP SCH (10:06)
[2022-07-20] MEDS: Nicotine 14 MG PATCH TD SCH (16:32)
[2022-07-20 16:41] VITALS: BP 115/71; TEMP 98.5
== END 2022-07-20 16:45 | disposition home or self-care (01) | DRG 280 ==
LOC: CSHERS 06:11 → SUATTDRO 06:11 → CSHTELE 11:33 → OBSVTOIN 11:34
PROVIDERS: ADMIT Internal Medicine; ATTEND Internal Medicine
PROC: 4A033R1 Measurement of Arterial Saturation, Peripheral, Percutaneous Approach (ICD-10-PCS; 2022-07-15)
PROC: 5A1D70Z Performance of Urinary Filtration, Intermittent, Less than 6 Hours Per Day (ICD-10-PCS; 2022-07-15)
PROC: 4A023N7 Measurement of Cardiac Sampling and Pressure, Left Heart, Percutaneous Approach (ICD-10-PCS; principal; 2022-07-18)
PROC: B2111ZZ Fluoroscopy of Multiple Coronary Arteries using Low Osmolar Contrast (ICD-10-PCS; 2022-07-18)
PROC: B2151ZZ Fluoroscopy of Left Heart using Low Osmolar Contrast (ICD-10-PCS; 2022-07-18)
PROC: 30233N1 Transfusion of Nonautologous Red Blood Cells into Peripheral Vein, Percutaneous Approach (ICD-10-PCS; 2022-07-18)
DX: I21.4 Non-ST elevation (NSTEMI) myocardial infarction (principal); I50.21 Acute systolic (congestive) heart failure; J96.01 Acute respiratory failure with hypoxia; N18.6 End stage renal disease; I13.2 Hypertensive heart and chronic kidney disease with heart failure and with stage 5 chronic kidney disease, or end stage renal disease; E87.1 Hypo-osmolality and hyponatremia; E87.20 Acidosis, unspecified; Q61.3 Polycystic kidney, unspecified; I42.9 Cardiomyopathy, unspecified; F41.9 Anxiety disorder, unspecified; G89.29 Other chronic pain; F32.A Depression, unspecified; E11.22 Type 2 diabetes mellitus with diabetic chronic kidney disease; I34.0 Nonrheumatic mitral (valve) insufficiency; E87.5 Hyperkalemia; D63.1 Anemia in chronic kidney disease; E83.42 Hypomagnesemia; E78.5 Hyperlipidemia, unspecified; Z90.5 Acquired absence of kidney; Z99.81 Dependence on supplemental oxygen; Z79.899 Other long term (current) drug therapy; Z91.158 Patient's noncompliance with renal dialysis for other reason
CPT/HCPCS: 36415; 36430; 36600; 71045; 80048; 80053; 80061; 82310; 82553; 82805; 83036; 83690; 83735; 83880; 84100; 84484; 85025; 85610; 85730; 86704; 86850; 86900; 86901; 90935; 93005; 93306; 93458; 94760; 94762; 96374; 99152; C1769; C1894; G0257; J0153; J1644; J2001; J2250; J2270; J2272; J3010; J3475; J7050; P9016; Q5105; Q9967

== ENCOUNTER 2022-08-12 21:47 | Observation (INO) | payer MEDICARE ==
[2022-08-12 22:31] LABS: Anion Gap 25 mmol/L (10-20); BUN (Urea Nitrogen) 98 mg/dL (8.9-20.6); Calc. Creatinine Clearance 0 mL/min (70-130); Calcium 8.3 mg/dL (7.8-10.44); Carbon Dioxide 12 mmol/L (22-29); Chloride 95 mmol/L (98-107); Estimated GFR 3; Glucose 99 mg/dL (70-105); Potassium 5.5 mmol/L (3.5-5.1); Sodium 126 mmol/L (136-145)
[2022-08-12 22:34] LABS: #Basophils 0.1 10x3/uL (0.0-0.2); #Eosinphils 0.5 10x3/uL (0.0-0.5); #Monocytes 0.3 10x3/uL (0.0-1.1); #Neutrophils 6.5 10x3/uL (1.5-8.4); %Basophils 0.6 % (0.0-2.0); %Eosinophils 6.3 % (0.0-6.0); %Lymphocytes 10.5 % (18.0-47.0); %Monocytes 3.7 % (0.0-10.0); %Neutrophils 78.3 % (40.0-75.0); Hemoglobin 7.8 g/dL (13.5-17.5); Mean Corpuscular HGB CONC 34.5 g/dL (32.0-36.0); Mean Corpuscular Hemoglobin 29.9 pg (27.0-33.0); Mean Corpuscular Volume 86.6 fl (81.2-95.1); Mean Platelet Volume 9.9 fl (7.4-10.4); Platelet Count 122 10x3/uL (150-450); RBC Distribution Width 13.4 % (11.5-14.5); Red Blood Cell (RBC) Count 2.61 10x6/uL (4.32-5.72); White Blood Cell (WBC) Count 8.3 10x3/uL (3.5-10.5)
[2022-08-12 22:53] LABS: CKMB 6.2 ng/mL (0-6.6)
[2022-08-13] MEDS ORDERED: Glucagon 1 MG/ML KIT IM PRN (00:30)
[2022-08-13] MEDS ORDERED: Guaifenesin DM 100-10/5 ML UDCUP PO PRN (00:30)
[2022-08-13] MEDS ORDERED: Dextrose 50% Abboject 50 ML SYRINGE SLOW IVP PRN (00:30)
[2022-08-13] MEDS ORDERED: Senokot S 8.6-50 MG TAB PO PRN (00:30)
[2022-08-13] MEDS ORDERED: Acetaminophen 325 MG TAB PO PRN (00:30)
[2022-08-13] MEDS ORDERED: Ondansetron PF 4 MG/2 ML Vial IVP PRN (00:30)
[2022-08-13] MEDS ORDERED: Dextrose 5% in Water 1,000 ML IV PRN (00:30)
[2022-08-13] MEDS ORDERED: Calcium Carbonate 500 MG ChewTAB PO PRN (00:30)
[2022-08-13] MEDS ORDERED: Calcium Gluc 4.6 MEQ/10 ML (100 MG/ML) SLOW IVP SCH (01:30)
[2022-08-13] MEDS ORDERED: Nitroglycerin 2% Ointment 1 INCH/1 GM Packet TOP SCH (01:30)
[2022-08-13] MEDS ORDERED: Nitroglycerin 2% Ointment 1 INCH/1 GM Packet ONE (02:03)
[2022-08-13] MEDS ORDERED: Calcium Gluc 4.6 MEQ/10 ML (100 MG/ML) ONE (02:03)
[2022-08-13] MEDS: EPOETIN ALFA-EPBX (ESRD) 4,000 UNITS/ML VIAL SC SCH ×2 (02:21→06:45)
[2022-08-13] MEDS ORDERED: Heparin 10,000 UNITS/ 10 ML VIAL SLOW IVP PRN (03:22)
[2022-08-13 07:14] LABS: Anion Gap 18 mmol/L (10-20); BUN (Urea Nitrogen) 37 mg/dL (8.9-20.6); Calc. Creatinine Clearance 14 mL/min (70-130); Calcium 9.4 mg/dL (7.8-10.44); Carbon Dioxide 24 mmol/L (22-29); Chloride 99 mmol/L (98-107); Estimated GFR 7; Glucose 79 mg/dL (70-105); Potassium 4.1 mmol/L (3.5-5.1); Sodium 137 mmol/L (136-145)
[2022-08-13 07:34] LABS: CKMB 5.1 ng/mL (0-6.6)
[2022-08-13] MEDS ORDERED: Aspirin 81 mg Enteric Coated Tablet ONE (09:24)
[2022-08-13] MEDS: Sevelamer Carbonate 800 MG TAB PO SCH ×3 (09:35→17:24)
[2022-08-13] MEDS: Carvedilol 3.125 MG TAB PO SCH ×2 (09:35→17:24)
[2022-08-13] MEDS: hydrALAZINE 10 MG TAB PO SCH ×3 (09:35→21:05)
[2022-08-13] MEDS: Aspirin 81 mg Enteric Coated Tablet PO SCH (09:35)
[2022-08-13] MEDS ORDERED: Atorvastatin Calcium 20 MG TAB PO SCH (21:00)
[2022-08-14 04:21] VITALS: TEMP 98.1
[2022-08-14] MEDS: Carvedilol 3.125 MG TAB PO SCH ×2 (09:27→16:43)
[2022-08-14] MEDS: Sevelamer Carbonate 800 MG TAB PO SCH ×3 (09:28→16:56)
[2022-08-14] MEDS: Aspirin 81 mg Enteric Coated Tablet PO SCH (09:28)
[2022-08-14] MEDS: hydrALAZINE 10 MG TAB PO SCH ×2 (09:29→15:42)
[2022-08-14 16:23] VITALS: BP 116/59
== END 2022-08-14 17:05 | disposition home or self-care (01) ==
LOC: CSHERS 21:47 → CSHERHOLD 08-13 01:07 → INTOOBSV 08-13 01:07 → CSHTELE 08-13 08:06
PROVIDERS: ADMIT Student in an Organized Health Care Education/Training Program; ATTEND Internal Medicine
DX: R06.02 Shortness of breath (principal); N18.6 End stage renal disease; I12.0 Hypertensive chronic kidney disease with stage 5 chronic kidney disease or end stage renal disease; Q61.3 Polycystic kidney, unspecified; I50.23 Acute on chronic systolic (congestive) heart failure; I34.0 Nonrheumatic mitral (valve) insufficiency; G47.33 Obstructive sleep apnea (adult) (pediatric); I13.2 Hypertensive heart and chronic kidney disease with heart failure and with stage 5 chronic kidney disease, or end stage renal disease; J45.909 Unspecified asthma, uncomplicated; K21.9 Gastro-esophageal reflux disease without esophagitis; D63.1 Anemia in chronic kidney disease; E87.1 Hypo-osmolality and hyponatremia; E11.22 Type 2 diabetes mellitus with diabetic chronic kidney disease; M10.9 Gout, unspecified; E03.9 Hypothyroidism, unspecified; R07.89 Other chest pain; E87.70 Fluid overload, unspecified; E78.5 Hyperlipidemia, unspecified; I25.10 Atherosclerotic heart disease of native coronary artery without angina pectoris; F41.9 Anxiety disorder, unspecified; F32.A Depression, unspecified; Z90.5 Acquired absence of kidney; Z99.2 Dependence on renal dialysis; Z79.82 Long term (current) use of aspirin
CPT/HCPCS: 71045; 80048 ×2; 82553 ×2; 84484 ×3; 85025; 93005; 94760 ×2; 96372; 99285; G0378 ×3; Q5105; 36415; 90935; G0257; J0612; J1644

== ENCOUNTER 2022-08-27 15:18 | Inpatient (IN) | payer MEDICARE, SELFPAY ==
[2022-08-27 15:54] LABS: #Basophils 0.1 10x3/uL (0.0-0.2); #Eosinphils 0.5 10x3/uL (0.0-0.5); #Monocytes 0.2 10x3/uL (0.0-1.1); #Neutrophils 5.8 10x3/uL (1.5-8.4); %Basophils 1.1 % (0.0-2.0); %Eosinophils 6.2 % (0.0-6.0); %Lymphocytes 11.3 % (18.0-47.0); %Monocytes 3.1 % (0.0-10.0); %Neutrophils 77.8 % (40.0-75.0); Hemoglobin 8.2 g/dL (13.5-17.5); Mean Corpuscular HGB CONC 34.9 g/dL (32.0-36.0); Mean Corpuscular Hemoglobin 29.9 pg (27.0-33.0); Mean Corpuscular Volume 85.8 fl (81.2-95.1); Mean Platelet Volume 10.2 fl (7.4-10.4); Platelet Count 146 10x3/uL (150-450); RBC Distribution Width 14.6 % (11.5-14.5); Red Blood Cell (RBC) Count 2.74 10x6/uL (4.32-5.72); White Blood Cell (WBC) Count 7.4 10x3/uL (3.5-10.5)
[2022-08-27 16:10] LABS: ALT (SGPT) 13 U/L (8-55); AST (SGOT) 8 U/L (5-34); Alkaline Phosphatase 118 U/L (40-110); Anion Gap 29 mmol/L (10-20); Bilirubin, Total 1.2 mg/dL (0.2-1.2); Calc. Creatinine Clearance 0 mL/min (70-130); Calcium 9.2 mg/dL (7.8-10.44); Carbon Dioxide 12 mmol/L (22-29); Chloride 95 mmol/L (98-107); Estimated GFR 3; Globulin 3.2 g/dL (2.4-3.5); Glucose 123 mg/dL (70-105); Protein, Total 7.2 g/dL (6.0-8.3); Sodium 130 mmol/L (136-145)
[2022-08-27 16:20] LABS: BUN (Urea Nitrogen) 127 mg/dL (8.9-20.6)
[2022-08-27 16:33] LABS: CKMB 8.2 ng/mL (0-6.6)
[2022-08-27 16:37] LABS: Potassium 6.4 mmol/L (3.5-5.1)
[2022-08-27] MEDS ORDERED: Calcium Chloride 1 GM/10 ML Abboject SYRINGE ONE ×2 (17:08)
[2022-08-27] MEDS ORDERED: Morphine 4 MG/ML VIAL ONE (17:08)
[2022-08-27] MEDS ORDERED: Dextrose 50% Abboject 50 ML SYRINGE ONE (17:09)
[2022-08-27] MEDS ORDERED: Sodium Bicarb 50 MEQ/50 ML VIAL ONE (17:09)
[2022-08-27] MEDS ORDERED: Insulin Regular 300 UNITS/3 ML VIAL ONE (17:09)
[2022-08-27] MEDS ORDERED: Ondansetron ODT 4 MG TAB PO PRN (17:41)
[2022-08-27 18:58] LABS: Troponin I 0.207 ng/mL (< 0.028)
[2022-08-27 22:04] LABS: Troponin I 0.239 ng/mL (< 0.028)
[2022-08-28] MEDS: Heparin 5,000 UNITS/ML VIAL SC SCH ×4 (00:30→20:24)
[2022-08-28] MEDS: Nicotine 14 MG PATCH TD SCH (03:23)
[2022-08-28 04:22] VITALS: BMI 23.3
[2022-08-28 04:37] LABS: ALT (SGPT) 15 U/L (8-55); AST (SGOT) 12 U/L (5-34); Albumin 3.5 g/dL (3.5-5.0); Alkaline Phosphatase 107 U/L (40-110); Anion Gap 19 mmol/L (10-20); BUN (Urea Nitrogen) 47 mg/dL (8.9-20.6); Bilirubin, Total 1.5 mg/dL (0.2-1.2); Calc. Creatinine Clearance 13 mL/min (70-130); Calcium 9.4 mg/dL (7.8-10.44); Carbon Dioxide 25 mmol/L (22-29); Chloride 97 mmol/L (98-107); Estimated GFR 8; Globulin 3.4 g/dL (2.4-3.5); Glucose 105 mg/dL (70-105); Potassium 3.9 mmol/L (3.5-5.1); Protein, Total 6.9 g/dL (6.0-8.3); Sodium 137 mmol/L (136-145)
[2022-08-28 04:40] LABS: #Basophils 0.1 10x3/uL (0.0-0.2); #Eosinphils 0.2 10x3/uL (0.0-0.5); #Monocytes 0.2 10x3/uL (0.0-1.1); #Neutrophils 4.5 10x3/uL (1.5-8.4); %Eosinophils 4.1 % (0.0-6.0); %Lymphocytes 15.1 % (18.0-47.0); %Monocytes 4.1 % (0.0-10.0); %Neutrophils 75.4 % (40.0-75.0); Hemoglobin 7.6 g/dL (13.5-17.5); Mean Corpuscular HGB CONC 34.9 g/dL (32.0-36.0); Mean Corpuscular Hemoglobin 29.8 pg (27.0-33.0); Mean Corpuscular Volume 85.5 fl (81.2-95.1); Mean Platelet Volume 9.5 fl (7.4-10.4); Platelet Count 142 10x3/uL (150-450); RBC Distribution Width 14.6 % (11.5-14.5); Red Blood Cell (RBC) Count 2.55 10x6/uL (4.32-5.72); White Blood Cell (WBC) Count 5.9 10x3/uL (3.5-10.5)
[2022-08-28] MEDS ORDERED: Dextrose 50% Abboject 50 ML SYRINGE SLOW IVP PRN (07:23)
[2022-08-28] MEDS: Aspirin 81 mg Enteric Coated Tablet PO SCH (08:28)
[2022-08-28] MEDS: Acetaminophen 325 MG TAB PO PRN ×3 (08:28→20:35)
[2022-08-28] MEDS ORDERED: Nicotine 14 MG PATCH TD SCH (09:00)
[2022-08-28] MEDS ORDERED: Epoetin (ESRD) 10,000 UNITS/ML VIAL SC SCH (09:00)
[2022-08-28] MEDS ORDERED: Carvedilol 3.125 MG TAB PO SCH (09:00)
[2022-08-28] MEDS: Carvedilol 3.125 MG TAB PO SCH (16:15)
[2022-08-28] MEDS: Atorvastatin Calcium 40 MG TAB PO SCH (20:24)
[2022-08-29 04:32] LABS: #Basophils 0.1 10x3/uL (0.0-0.2); #Eosinphils 0.3 10x3/uL (0.0-0.5); #Monocytes 0.3 10x3/uL (0.0-1.1); #Neutrophils 2.7 10x3/uL (1.5-8.4); %Basophils 1.9 % (0.0-2.0); %Eosinophils 7.9 % (0.0-6.0); %Lymphocytes 21.2 % (18.0-47.0); %Monocytes 6.5 % (0.0-10.0); Hemoglobin 7.9 g/dL (13.5-17.5); Mean Corpuscular HGB CONC 32.6 g/dL (32.0-36.0); Mean Platelet Volume 9.5 fl (7.4-10.4); Platelet Count 138 10x3/uL (150-450); RBC Distribution Width 14.9 % (11.5-14.5); Red Blood Cell (RBC) Count 2.72 10x6/uL (4.32-5.72); White Blood Cell (WBC) Count 4.3 10x3/uL (3.5-10.5)
[2022-08-29] MEDS: Nicotine 14 MG PATCH TD SCH (04:36)
[2022-08-29 04:41] LABS: Anion Gap 18 mmol/L (10-20); BUN (Urea Nitrogen) 23 mg/dL (8.9-20.6); Calc. Creatinine Clearance 20 mL/min (70-130); Calcium 9.3 mg/dL (7.8-10.44); Carbon Dioxide 26 mmol/L (22-29); Chloride 95 mmol/L (98-107); Estimated GFR 13; Glucose 88 mg/dL (70-105); Potassium 4.1 mmol/L (3.5-5.1); Sodium 135 mmol/L (136-145)
[2022-08-29] MEDS: Sevelamer Carbonate 800 MG TAB PO SCH ×3 (10:11→17:16)
[2022-08-29] MEDS: Aspirin 81 mg Enteric Coated Tablet PO SCH (10:16)
[2022-08-29] MEDS: Carvedilol 3.125 MG TAB PO SCH ×2 (10:16→17:24)
[2022-08-29] MEDS: Heparin 5,000 UNITS/ML VIAL SC SCH ×3 (10:17→21:37)
[2022-08-29] MEDS: Atorvastatin Calcium 40 MG TAB PO SCH (21:37)
[2022-08-30] MEDS: Nicotine 14 MG PATCH TD SCH (04:35)
[2022-08-30 07:16] LABS: #Basophils 0.1 10x3/uL (0.0-0.2); #Eosinphils 0.4 10x3/uL (0.0-0.5); #Monocytes 0.3 10x3/uL (0.0-1.1); %Basophils 1.6 % (0.0-2.0); %Eosinophils 8.9 % (0.0-6.0); %Lymphocytes 22.2 % (18.0-47.0); %Monocytes 6.1 % (0.0-10.0); Hemoglobin 7.9 g/dL (13.5-17.5); Mean Corpuscular HGB CONC 32.9 g/dL (32.0-36.0); Mean Corpuscular Hemoglobin 29.7 pg (27.0-33.0); Mean Corpuscular Volume 90.2 fl (81.2-95.1); Mean Platelet Volume 9.7 fl (7.4-10.4); Platelet Count 138 10x3/uL (150-450); RBC Distribution Width 14.8 % (11.5-14.5); Red Blood Cell (RBC) Count 2.66 10x6/uL (4.32-5.72)
[2022-08-30 07:30] LABS: Anion Gap 18 mmol/L (10-20); BUN (Urea Nitrogen) 33 mg/dL (8.9-20.6); Calc. Creatinine Clearance 15 mL/min (70-130); Calcium 9.3 mg/dL (7.8-10.44); Carbon Dioxide 26 mmol/L (22-29); Chloride 95 mmol/L (98-107); Estimated GFR 9; Glucose 87 mg/dL (70-105); Potassium 4.1 mmol/L (3.5-5.1); Sodium 135 mmol/L (136-145)
[2022-08-30] MEDS: Heparin 5,000 UNITS/ML VIAL SC SCH ×2 (08:08→16:02)
[2022-08-30] MEDS: Sevelamer Carbonate 800 MG TAB PO SCH ×3 (08:20→16:03)
[2022-08-30] MEDS: Carvedilol 3.125 MG TAB PO SCH (08:20)
[2022-08-30] MEDS: Aspirin 81 mg Enteric Coated Tablet PO SCH (08:21)
[2022-08-30] MEDS ORDERED: Carvedilol 3.125 MG TAB PO SCH (09:30)
[2022-08-30 16:52] VITALS: BP 125/70; TEMP 98
[2022-08-30] MEDS ORDERED: Carvedilol 6.25 MG TAB PO SCH (17:00)
[2022-09-04] MEDS ORDERED: EPOETIN ALFA-EPBX (ESRD) 4,000 UNITS/ML VIAL SC SCH (09:00)
== END 2022-08-30 16:40 | disposition home or self-care (01) | DRG 291 ==
LOC: CSHERS 15:18 → SUATTDRO 15:18 → CSHTELE 20:26
PROVIDERS: ADMIT Family Medicine; ATTEND Hospitalist
PROC: 5A1D70Z Performance of Urinary Filtration, Intermittent, Less than 6 Hours Per Day (ICD-10-PCS; principal; 2022-08-30)
DX: I13.2 Hypertensive heart and chronic kidney disease with heart failure and with stage 5 chronic kidney disease, or end stage renal disease (principal); I50.23 Acute on chronic systolic (congestive) heart failure; N18.6 End stage renal disease; E78.5 Hyperlipidemia, unspecified; I25.10 Atherosclerotic heart disease of native coronary artery without angina pectoris; F41.9 Anxiety disorder, unspecified; F32.A Depression, unspecified; G89.29 Other chronic pain; E11.22 Type 2 diabetes mellitus with diabetic chronic kidney disease; F17.210 Nicotine dependence, cigarettes, uncomplicated; E87.5 Hyperkalemia; E11.649 Type 2 diabetes mellitus with hypoglycemia without coma; D63.1 Anemia in chronic kidney disease; E83.39 Other disorders of phosphorus metabolism; I08.1 Rheumatic disorders of both mitral and tricuspid valves; Z91.158 Patient's noncompliance with renal dialysis for other reason; Z79.899 Other long term (current) drug therapy; Z79.82 Long term (current) use of aspirin; Z98.890 Other specified postprocedural states; Z90.49 Acquired absence of other specified parts of digestive tract
CPT/HCPCS: 36415; 36416; 71045; 80048; 80053; 82553; 83880; 84484; 85025; 90935; 93005; 94760; 96374; 96375; G0257; J1644; J1815; J2270; J7999; Q4081

== ENCOUNTER 2022-09-13 07:50 | Emergency (ER) | payer MEDICARE, SELFPAY ==
[2022-09-13 09:08] LABS: #Basophils 0.1 10x3/uL (0.0-0.2); #Eosinphils 0.6 10x3/uL (0.0-0.5); #Monocytes 0.3 10x3/uL (0.0-1.1); #Neutrophils 5.4 10x3/uL (1.5-8.4); %Basophils 1.3 % (0.0-2.0); %Eosinophils 8.5 % (0.0-6.0); %Lymphocytes 10.8 % (18.0-47.0); %Monocytes 3.6 % (0.0-10.0); %Neutrophils 75.1 % (40.0-75.0); Hematocrit 23.9 % (38.8-50.0); Hemoglobin 8.1 g/dL (13.5-17.5); Mean Corpuscular HGB CONC 33.9 g/dL (32.0-36.0); Mean Corpuscular Hemoglobin 29.9 pg (27.0-33.0); Mean Corpuscular Volume 88.2 fl (81.2-95.1); Mean Platelet Volume 10.7 fl (7.4-10.4); Platelet Count 118 10x3/uL (150-450); RBC Distribution Width 15.5 % (11.5-14.5); Red Blood Cell (RBC) Count 2.71 10x6/uL (4.32-5.72); White Blood Cell (WBC) Count 7.1 10x3/uL (3.5-10.5)
[2022-09-13 09:21] LABS: ALT (SGPT) Less than 7 U/L (8-55); AST (SGOT) 5 U/L (5-34); Albumin 3.9 g/dL (3.5-5.0); Alkaline Phosphatase 110 U/L (40-110); Anion Gap 28 mmol/L (10-20); BUN (Urea Nitrogen) 124 mg/dL (8.9-20.6); Bilirubin, Total 1.1 mg/dL (0.2-1.2); Calc. Creatinine Clearance 0 mL/min (70-130); Calcium 9.3 mg/dL (7.8-10.44); Carbon Dioxide 16 mmol/L (22-29); Chloride 94 mmol/L (98-107); Estimated GFR 3; Glucose 102 mg/dL (70-105); Magnesium 1.1 mg/dL (1.6-2.6); Protein, Total 6.9 g/dL (6.0-8.3); Sodium 131 mmol/L (136-145)
[2022-09-13 09:27] LABS: Phosphorus 10.8 mg/dL (2.3-4.7); Potassium 6.7 mmol/L (3.5-5.1)
[2022-09-13] MEDS ORDERED: EPOETIN ALFA-EPBX (ESRD) 4,000 UNITS/ML VIAL SC SCH (10:00)
[2022-09-13] MEDS ORDERED: Calcium Gluc 4.6 MEQ/10 ML (100 MG/ML) ONE (10:17)
== END 2022-09-13 15:50 | disposition short-term general hospital (02) ==
LOC: EDBD → CSHERS 07:50
DX: I12.0 Hypertensive chronic kidney disease with stage 5 chronic kidney disease or end stage renal disease (principal); N18.6 End stage renal disease; E87.5 Hyperkalemia; E83.39 Other disorders of phosphorus metabolism; E78.5 Hyperlipidemia, unspecified; Z99.2 Dependence on renal dialysis; F17.210 Nicotine dependence, cigarettes, uncomplicated
CPT/HCPCS: 71045; 80053; 83735; 84100; 85025; 90935; 93005; 96374; G0257; J0612

== ENCOUNTER 2022-09-26 08:05 | Inpatient (IN) | payer MEDICARE, SELFPAY ==
[2022-09-26 10:42] LABS: %Neutrophils 74.3 % (40.0-75.0); Hematocrit 22.2 % (38.8-50.0); Hemoglobin 7.6 g/dL (13.5-17.5); Mean Corpuscular HGB CONC 34.2 g/dL (32.0-36.0); Mean Corpuscular Volume 87.7 fl (81.2-95.1); Mean Platelet Volume 9.8 fl (7.4-10.4); Platelet Count 98 10x3/uL (130-400); RBC Distribution Width 14.6 % (11.5-14.5); Red Blood Cell (RBC) Count 2.53 10x6/uL (4.32-5.72); White Blood Cell (WBC) Count 7.5 10x3/uL (3.5-10.5)
[2022-09-26 10:43] LABS: #Basophils 0.1 10x3/uL (0.0-0.2); #Eosinphils 0.6 10x3/uL (0.0-0.5); #Monocytes 0.5 10x3/uL (0.0-1.1); #Neutrophils 5.6 10x3/uL (1.5-8.4); %Basophils 0.7 % (0.0-2.0); %Eosinophils 7.8 % (0.0-6.0); %Monocytes 6.8 % (0.0-10.0)
[2022-09-26 11:14] LABS: Sodium 128 mmol/L (136-145)
[2022-09-26 11:16] LABS: Carbon Dioxide 14 mmol/L (22-29); Chloride 95 mmol/L (98-107); Potassium 6.1 mmol/L (3.5-5.1)
[2022-09-26 11:17] LABS: AST (SGOT) 6 U/L (5-34); Albumin 3.6 g/dL (3.5-5.0); Alkaline Phosphatase 91 U/L (40-110); Anion Gap 25 mmol/L (10-20); BUN (Urea Nitrogen) 119 mg/dL (8.9-20.6); Calc. Creatinine Clearance 0 mL/min (70-130); Calcium 8.8 mg/dL (7.6-10.4); Estimated GFR 4; Globulin 3.2 g/dL (2.4-3.5); Glucose 99 mg/dL (70-105); Protein, Total 6.8 g/dL (6.0-8.3)
[2022-09-26 11:18] LABS: ALT (SGPT) 8 U/L (8-55)
[2022-09-26] MEDS ORDERED: Guaifenesin DM 100-10/5 ML UDCUP PO PRN (12:11)
[2022-09-26] MEDS ORDERED: Ondansetron ODT 4 MG TAB PO PRN (12:11)
[2022-09-26] MEDS ORDERED: Ondansetron PF 4 MG/2 ML Vial IVP PRN (12:11)
[2022-09-26] MEDS ORDERED: Acetaminophen 650 MG Suppository PR PRN (12:11)
[2022-09-26] MEDS ORDERED: HYDROcodone/Acetaminophen 5/325 mg Tablet PO PRN ×2 (12:11)
[2022-09-26] MEDS ORDERED: Senokot S 8.6-50 MG TAB PO PRN (12:11)
[2022-09-26] MEDS ORDERED: Loperamide HCl 2 MG CAP PO PRN (12:11)
[2022-09-26] MEDS ORDERED: HumaLOG 300 UNITS/3 ML VIAL SC PRN ×2 (12:15)
[2022-09-26] MEDS ORDERED: Dextrose 5% in Water 1,000 ML IV PRN (12:15)
[2022-09-26] MEDS ORDERED: Dextrose 50% Abboject 50 ML SYRINGE SLOW IVP PRN (12:15)
[2022-09-26] MEDS ORDERED: Glucagon 1 MG/ML KIT IM PRN (12:15)
[2022-09-26] MEDS ORDERED: Calcium Gluc 4.6 MEQ/10 ML (100 MG/ML) ONE (13:42)
[2022-09-26] MEDS ORDERED: diphenhydrAMINE 25 MG CAP ONE (13:49)
[2022-09-26] MEDS ORDERED: EPOETIN ALFA-EPBX (ESRD) 4,000 UNITS/ML VIAL SC SCH (20:00)
[2022-09-26] MEDS ORDERED: Sevelamer Carbonate 800 MG TAB PO SCH (20:30)
[2022-09-26] MEDS: Carvedilol 6.25 MG TAB PO SCH (20:53)
[2022-09-26] MEDS: Atorvastatin Calcium 40 MG TAB PO SCH (20:56)
[2022-09-26] MEDS: Nicotine 14 MG PATCH TD SCH (20:57)
[2022-09-26] MEDS ORDERED: Carvedilol 6.25 MG TAB PO SCH (21:00)
[2022-09-27] MEDS: Acetaminophen 325 MG TAB PO PRN ×2 (00:30→20:44)
[2022-09-27 03:13] LABS: Anion Gap 20 mmol/L (10-20); BUN (Urea Nitrogen) 52 mg/dL (8.9-20.6); Calc. Creatinine Clearance 13 mL/min (70-130); Calcium 8.9 mg/dL (7.8-10.44); Carbon Dioxide 22 mmol/L (22-29); Chloride 96 mmol/L (98-107); Estimated GFR 8; Glucose 120 mg/dL (70-105); Magnesium 1.6 mg/dL (1.6-2.6); Potassium 4.7 mmol/L (3.5-5.1); Sodium 133 mmol/L (136-145)
[2022-09-27 04:32] LABS: #Basophils 0.1 10x3/uL (0.0-0.2); #Eosinphils 0.3 10x3/uL (0.0-0.5); #Monocytes 0.4 10x3/uL (0.0-1.1); #Neutrophils 4.6 10x3/uL (1.5-8.4); %Eosinophils 4.3 % (0.0-6.0); %Lymphocytes 10.9 % (18.0-47.0); %Monocytes 7.3 % (0.0-10.0); %Neutrophils 76.3 % (40.0-75.0); Hematocrit 22.6 % (38.8-50.0); Hemoglobin 7.6 g/dL (13.5-17.5); Mean Corpuscular HGB CONC 33.6 g/dL (32.0-36.0); Mean Corpuscular Volume 86.3 fl (81.2-95.1); Mean Platelet Volume 9.5 fl (7.4-10.4); Platelet Count 102 10x3/uL (150-450); RBC Distribution Width 14.5 % (11.5-14.5); Red Blood Cell (RBC) Count 2.62 10x6/uL (4.32-5.72); White Blood Cell (WBC) Count 6.1 10x3/uL (3.5-10.5)
[2022-09-27] MEDS: Sevelamer Carbonate 800 MG TAB PO SCH ×3 (08:15→18:01)
[2022-09-27] MEDS: Aspirin 81 mg Enteric Coated Tablet PO SCH (08:15)
[2022-09-27] MEDS: Carvedilol 6.25 MG TAB PO SCH ×2 (08:15→18:02)
[2022-09-27] MEDS: Heparin 5,000 UNITS/ML VIAL SC SCH ×2 (14:27→20:37)
[2022-09-27] MEDS: diphenhydrAMINE 25 MG CAP PO PRN (19:07)
[2022-09-27] MEDS: Nicotine 14 MG PATCH TD SCH (20:36)
[2022-09-27] MEDS: Atorvastatin Calcium 40 MG TAB PO SCH (20:36)
[2022-09-28] MEDS: diphenhydrAMINE 25 MG CAP PO PRN ×2 (03:10→08:28)
[2022-09-28 06:59] LABS: Anion Gap 15 mmol/L (10-20); BUN (Urea Nitrogen) 32 mg/dL (8.9-20.6); Calc. Creatinine Clearance 19 mL/min (70-130); Calcium 9.3 mg/dL (7.8-10.44); Carbon Dioxide 28 mmol/L (22-29); Chloride 98 mmol/L (98-107); Estimated GFR 12; Glucose 98 mg/dL (70-105); Potassium 4.4 mmol/L (3.5-5.1); Sodium 137 mmol/L (136-145)
[2022-09-28] MEDS: Aspirin 81 mg Enteric Coated Tablet PO SCH (08:23)
[2022-09-28] MEDS: Heparin 5,000 UNITS/ML VIAL SC SCH ×2 (08:23→15:31)
[2022-09-28] MEDS: Sevelamer Carbonate 800 MG TAB PO SCH ×2 (08:23→12:44)
[2022-09-28] MEDS: Carvedilol 6.25 MG TAB PO SCH (08:23)
[2022-09-28] MEDS ORDERED: Heparin 10,000 UNITS/ 10 ML VIAL SLOW IVP PRN (08:59)
[2022-09-28 12:08] VITALS: BMI 25.0
[2022-09-28 12:55] VITALS: BP 111/63; TEMP 97.5
== END 2022-09-28 18:13 | disposition home or self-care (01) | DRG 640 ==
LOC: CSHERS 08:05 → CSHERHOLD 11:44 → CSHTELE 20:02 → OBSVTOIN 09-27 13:23
PROVIDERS: ADMIT Internal Medicine; ATTEND Hospitalist
PROC: 5A1D70Z Performance of Urinary Filtration, Intermittent, Less than 6 Hours Per Day (ICD-10-PCS; principal; 2022-09-27)
DX: E87.70 Fluid overload, unspecified (principal); N18.6 End stage renal disease; I13.2 Hypertensive heart and chronic kidney disease with heart failure and with stage 5 chronic kidney disease, or end stage renal disease; I50.22 Chronic systolic (congestive) heart failure; E87.5 Hyperkalemia; R53.1 Weakness; R19.7 Diarrhea, unspecified; E78.5 Hyperlipidemia, unspecified; I25.10 Atherosclerotic heart disease of native coronary artery without angina pectoris; F41.9 Anxiety disorder, unspecified; F32.A Depression, unspecified; M54.9 Dorsalgia, unspecified; G89.29 Other chronic pain; F17.210 Nicotine dependence, cigarettes, uncomplicated; D63.1 Anemia in chronic kidney disease; D69.6 Thrombocytopenia, unspecified; I34.0 Nonrheumatic mitral (valve) insufficiency; Z99.2 Dependence on renal dialysis; Z79.82 Long term (current) use of aspirin; Z79.899 Other long term (current) drug therapy; Z90.49 Acquired absence of other specified parts of digestive tract; Z90.5 Acquired absence of kidney; Z71.6 Tobacco abuse counseling; Z98.890 Other specified postprocedural states; Z87.11 Personal history of peptic ulcer disease; Z91.158 Patient's noncompliance with renal dialysis for other reason; Z91.110 Patient's noncompliance with dietary regimen due to financial hardship
CPT/HCPCS: 36415; 36416; 80048; 80053; 83735; 85025; 90935; 93005; 94760; 96374; G0257; J0612; J1644; J3475; Q5105

== ENCOUNTER 2022-10-15 06:06 | Inpatient (IN) | payer MEDICARE, SELFPAY ==
[2022-10-15 06:55] LABS: #Basophils 0.1 10x3/uL (0.0-0.2); #Eosinphils 0.4 10x3/uL (0.0-0.5); #Monocytes 0.3 10x3/uL (0.0-1.1); #Neutrophils 8.2 10x3/uL (1.5-8.4); %Basophils 0.5 % (0.0-2.0); %Eosinophils 4.3 % (0.0-6.0); %Lymphocytes 7.6 % (18.0-47.0); %Monocytes 3.5 % (0.0-10.0); %Neutrophils 83.6 % (40.0-75.0); Hematocrit 22.9 % (38.8-50.0); Hemoglobin 7.8 g/dL (13.5-17.5); Mean Corpuscular HGB CONC 34.1 g/dL (32.0-36.0); Mean Corpuscular Hemoglobin 29.9 pg (27.0-33.0); Mean Corpuscular Volume 87.7 fl (81.2-95.1); Mean Platelet Volume 10.3 fl (7.4-10.4); Platelet Count 127 10x3/uL (150-450); RBC Distribution Width 16.1 % (11.5-14.5); Red Blood Cell (RBC) Count 2.61 10x6/uL (4.32-5.72); White Blood Cell (WBC) Count 9.8 10x3/uL (3.5-10.5)
[2022-10-15 06:59] LABS: ALT (SGPT) 8 U/L (8-55); AST (SGOT) 5 U/L (5-34); Albumin 3.8 g/dL (3.5-5.0); Alkaline Phosphatase 106 U/L (40-110); Bilirubin, Total 0.9 mg/dL (0.2-1.2); Calc. Creatinine Clearance 0 mL/min (70-130); Calcium 9.7 mg/dL (7.8-10.44); Chloride 98 mmol/L (98-107); Estimated GFR 3; Globulin 3.4 g/dL (2.4-3.5); Glucose 114 mg/dL (70-105); Protein, Total 7.2 g/dL (6.0-8.3); Sodium 130 mmol/L (136-145)
[2022-10-15] MEDS ORDERED: Calcium Chloride 1 GM/10 ML Abboject SYRINGE ONE (07:16)
[2022-10-15 07:49] LABS: Carbon Dioxide Less than 8 mmol/L (22-29); Potassium 6.3 mmol/L (3.5-5.1)
[2022-10-15] MEDS ORDERED: Morphine 4 MG/ML VIAL ONE (07:57)
[2022-10-15] MEDS ORDERED: LOKELMA 10 GM PACKET PO SCH (08:00)
[2022-10-15] MEDS ORDERED: Sodium Bicarb 50 MEQ/50 ML Abboject 8.4% SYRINGE ONE (08:04)
[2022-10-15] MEDS ORDERED: Sodium Bicarb 50 MEQ/50 ML VIAL ONE (08:06)
[2022-10-15 08:10] LABS: Troponin I 0.394 ng/mL (< 0.028)
[2022-10-15 08:12] LABS: Actual Bicarbonate (HCO3v) 9.1 mEq/L (22-28); Base Excess -17.5 mEq/L (-2 - +2); Calcium, Ionized (venous) 1.27 mmol/L (1.16-1.32); Chloride (VBG) 99 mmol/L (98-106); Hematocrit-VBG 24 % (42.0-52.0); Hemoglobin (Hb) 8.3 g/dL (13.1-17.2); Puncture Site Other Site; RapidComm Collect By CBN; Sodium 129.2 mmol/L (133-146); pH (venous) 7.193 (7.32-7.43)
[2022-10-15] MEDS ORDERED: Ondansetron PF 4 MG/2 ML Vial ONE (08:13)
[2022-10-15 08:17] LABS: BUN (Urea Nitrogen) 177 mg/dL (8.9-20.6)
[2022-10-15] MEDS ORDERED: HumaLOG 300 UNITS/3 ML VIAL SC PRN (09:03)
[2022-10-15] MEDS ORDERED: Acetaminophen 325 MG TAB PO PRN (09:03)
[2022-10-15] MEDS ORDERED: Dextrose 50% Abboject 50 ML SYRINGE SLOW IVP PRN (09:03)
[2022-10-15] MEDS ORDERED: Glucagon 1 MG/ML KIT IM PRN (09:03)
[2022-10-15] MEDS ORDERED: Dextrose 5% in Water 1,000 ML IV PRN (09:03)
[2022-10-15 09:06] LABS: SARS-CoV-2 NAA Rapid Test Not Detected (NotDetected)
[2022-10-15] MEDS ORDERED: Ipratropium/Albuterol 3 ML NEB ONE (09:23)
[2022-10-15] MEDS ORDERED: Heparin 10,000 UNITS/ 10 ML VIAL SLOW IVP PRN ×2 (10:35→10:45)
[2022-10-15 12:27] VITALS: BMI 26.9
[2022-10-15] MEDS ORDERED: Nicotine 21 MG PATCH TD SCH (13:00)
[2022-10-15] MEDS ORDERED: Sevelamer Carbonate 800 MG TAB PO SCH (13:00)
[2022-10-15] MEDS: Aspirin 81 mg Enteric Coated Tablet PO SCH (13:02)
[2022-10-15] MEDS ORDERED: Heparin 5,000 UNITS/ML VIAL SC SCH (15:00)
[2022-10-15] MEDS: Carvedilol 6.25 MG TAB PO SCH (15:18)
[2022-10-15] MEDS: HYDROcodone/Acetaminophen 10/325 mg Tablet PO PRN (15:18)
[2022-10-15] MEDS ORDERED: Metoclopramide HCl 10 MG/2 ML VIAL IVP PRN (18:04)
[2022-10-15] MEDS: Sevelamer Carbonate 800 MG TAB PO SCH (18:07)
[2022-10-15] MEDS: Ondansetron PF 4 MG/2 ML Vial IVP PRN (18:07)
[2022-10-15] MEDS ORDERED: Morphine 2 MG/ML VIAL SLOW IVP SCH (18:15)
[2022-10-15] MEDS ORDERED: Metoclopramide HCl 10 MG/2 ML VIAL IVP SCH (18:15)
[2022-10-15] MEDS ORDERED: Promethazine HCl 12.5 MG in Sodium Chloride 0.9% 50 ML IVPB PRN (18:19)
[2022-10-15] MEDS ORDERED: Pantoprazole 40 MG VIAL IVP SCH (18:30)
[2022-10-15 18:44] LABS: #Basophils 0.1 10x3/uL (0.0-0.2); #Eosinphils 0.3 10x3/uL (0.0-0.5); #Monocytes 0.4 10x3/uL (0.0-1.1); %Basophils 0.6 % (0.0-2.0); %Eosinophils 2.7 % (0.0-6.0); %Lymphocytes 4.9 % (18.0-47.0); %Monocytes 4.8 % (0.0-10.0); %Neutrophils 86.7 % (40.0-75.0); Hemoglobin 7.9 g/dL (13.5-17.5); Mean Corpuscular HGB CONC 34.3 g/dL (32.0-36.0); Mean Corpuscular Hemoglobin 29.7 pg (27.0-33.0); Mean Corpuscular Volume 86.5 fl (81.2-95.1); Mean Platelet Volume 10.2 fl (7.4-10.4); Platelet Count 117 10x3/uL (150-450); RBC Distribution Width 15.8 % (11.5-14.5); Red Blood Cell (RBC) Count 2.66 10x6/uL (4.32-5.72); White Blood Cell (WBC) Count 9.3 10x3/uL (3.5-10.5)
[2022-10-15 19:09] LABS: ALV-art Gradient 102.715 mmHg (0-20); Actual Bicarbonate (HCO3a) 21.4 mEq/L (22-28); Base Excess (BEa) -1.6 mEq/L (-2.0 to +3.0); CO2 Tension 29.3 mmHg (35.0-45.0); Calcium, Ionized (arterial) 1.13 mmol/L (1.12-1.30); Carboxyhemoglobin (COHb) 1.5 gm% (0.0-3.0); Critical Notified By: CP.PH; Hematocrit-ABG 25 % (42.0-52.0); Hemoglobin (Hb) 8.6 g/dL (14.0-18.0); O2 Tension (PaO2), arterial 60.3 mmHg (80.0-100.0); Potassium - ABG Lab 4.13 mmol/L (3.70-5.30); Puncture Site RBA; pH, Arterial 7.481 (7.35-7.45)
[2022-10-15 19:15] LABS: ALT (SGPT) 9 U/L (8-55); AST (SGOT) 8 U/L (5-34); Albumin 3.7 g/dL (3.5-5.0); Alkaline Phosphatase 105 U/L (40-110); Anion Gap 22 mmol/L (10-20); BUN (Urea Nitrogen) 76 mg/dL (8.9-20.6); Bilirubin, Total 1.3 mg/dL (0.2-1.2); Calc. Creatinine Clearance 12 mL/min (70-130); Calcium 9.7 mg/dL (7.8-10.44); Carbon Dioxide 20 mmol/L (22-29); Chloride 99 mmol/L (98-107); Estimated GFR 6; Globulin 3.4 g/dL (2.4-3.5); Glucose 106 mg/dL (70-105); Magnesium 1.5 mg/dL (1.6-2.6); Phosphorus 6.9 mg/dL (2.3-4.7); Potassium 4.3 mmol/L (3.5-5.1); Protein, Total 7.1 g/dL (6.0-8.3); Sodium 137 mmol/L (136-145)
[2022-10-15] MEDS ORDERED: Magnesium 2 GM/50 ML(in water) 2 GM in Premix Bag 1 BAG IVPB SCH (20:00)
[2022-10-15] MEDS: Atorvastatin Calcium 40 MG TAB PO SCH (20:20)
[2022-10-15 21:30] LABS: Troponin I 0.388 ng/mL (< 0.028)
[2022-10-15 23:32] LABS: Troponin I 0.427 ng/mL (< 0.028)
[2022-10-16 05:41] LABS: Mean Platelet Volume 10.9 fl (7.4-10.4); Platelet Count 124 10x3/uL (150-450)
[2022-10-16 05:42] LABS: #Basophils 0.1 10x3/uL (0.0-0.2); #Eosinphils 0.2 10x3/uL (0.0-0.5); #Monocytes 0.4 10x3/uL (0.0-1.1); #Neutrophils 6.8 10x3/uL (1.5-8.4); %Basophils 0.6 % (0.0-2.0); %Eosinophils 2.3 % (0.0-6.0); %Lymphocytes 9.3 % (18.0-47.0); %Monocytes 4.6 % (0.0-10.0); %Neutrophils 82.8 % (40.0-75.0); Hematocrit 21.7 % (38.8-50.0); Hemoglobin 7.6 g/dL (13.5-17.5); Mean Corpuscular Hemoglobin 30.5 pg (27.0-33.0); Mean Corpuscular Volume 87.1 fl (81.2-95.1); RBC Distribution Width 15.8 % (11.5-14.5); Red Blood Cell (RBC) Count 2.49 10x6/uL (4.32-5.72); White Blood Cell (WBC) Count 8.2 10x3/uL (3.5-10.5)
[2022-10-16 05:46] LABS: Anion Gap 26 mmol/L (10-20); BUN (Urea Nitrogen) 83 mg/dL (8.9-20.6); Calc. Creatinine Clearance 11 mL/min (70-130); Calcium 9.5 mg/dL (7.8-10.44); Carbon Dioxide 19 mmol/L (22-29); Chloride 98 mmol/L (98-107); Estimated GFR 5; Glucose 95 mg/dL (70-105); Magnesium 1.9 mg/dL (1.6-2.6); Potassium 4.5 mmol/L (3.5-5.1); Sodium 138 mmol/L (136-145)
[2022-10-16 05:54] LABS: Phosphorus 9.1 mg/dL (2.3-4.7)
[2022-10-16 06:11] LABS: Troponin I 0.396 ng/mL (< 0.028)
[2022-10-16] MEDS: Ondansetron PF 4 MG/2 ML Vial IVP PRN ×2 (08:16→20:35)
[2022-10-16] MEDS: Aspirin 81 mg Enteric Coated Tablet PO SCH (08:17)
[2022-10-16] MEDS: Carvedilol 6.25 MG TAB PO SCH ×2 (08:17→17:38)
[2022-10-16] MEDS: Sevelamer Carbonate 800 MG TAB PO SCH ×3 (08:17→17:37)
[2022-10-16] MEDS: Pantoprazole 40 MG VIAL IVP SCH (08:17)
[2022-10-16] MEDS: Nicotine 21 MG PATCH TD SCH (14:22)
[2022-10-16] MEDS: HYDROcodone/Acetaminophen 10/325 mg Tablet PO PRN (20:35)
[2022-10-16] MEDS: Atorvastatin Calcium 40 MG TAB PO SCH (20:35)
[2022-10-17 05:46] LABS: Magnesium 1.8 mg/dL (1.6-2.6)
[2022-10-17] MEDS ORDERED: EPOETIN ALFA-EPBX (ESRD) 4,000 UNITS/ML VIAL SC SCH ×2 (06:15→08:00)
[2022-10-17 06:30] LABS: Phosphorus 6.2 mg/dL (2.3-4.7)
[2022-10-17] MEDS: Aspirin 81 mg Enteric Coated Tablet PO SCH (09:13)
[2022-10-17] MEDS: Sevelamer Carbonate 800 MG TAB PO SCH ×3 (09:13→17:16)
[2022-10-17] MEDS: Carvedilol 6.25 MG TAB PO SCH ×2 (09:13→17:16)
[2022-10-17] MEDS: Ondansetron PF 4 MG/2 ML Vial IVP PRN ×2 (09:14→17:16)
[2022-10-17] MEDS: Pantoprazole 40 MG VIAL IVP SCH (09:14)
[2022-10-17] MEDS: Nicotine 21 MG PATCH TD SCH (14:41)
[2022-10-17] MEDS: Atorvastatin Calcium 40 MG TAB PO SCH (20:16)
[2022-10-18 07:09] LABS: Magnesium 1.7 mg/dL (1.6-2.6)
[2022-10-18 10:12] VITALS: BP 140/78; TEMP 98.9
[2022-10-18] MEDS: HYDROcodone/Acetaminophen 10/325 mg Tablet PO PRN (10:25)
[2022-10-18] MEDS: Aspirin 81 mg Enteric Coated Tablet PO SCH (10:26)
[2022-10-18] MEDS: Carvedilol 6.25 MG TAB PO SCH (10:30)
[2022-10-18] MEDS: Sevelamer Carbonate 800 MG TAB PO SCH (10:30)
[2022-10-18] MEDS: Pantoprazole 40 MG VIAL IVP SCH (10:31)
[2022-10-18 11:25] LABS: Anion Gap 16 mmol/L (10-20); BUN (Urea Nitrogen) 32 mg/dL (8.9-20.6); Calc. Creatinine Clearance 21 mL/min (70-130); Calcium 9.4 mg/dL (7.8-10.44); Carbon Dioxide 27 mmol/L (22-29); Chloride 97 mmol/L (98-107); Estimated GFR 12; Glucose 168 mg/dL (70-105); Magnesium 1.7 mg/dL (1.6-2.6); Potassium 4.2 mmol/L (3.5-5.1); Sodium 136 mmol/L (136-145)
[2022-10-18] MEDS ORDERED: Magnesium Oxide 400 MG TAB PO SCH (13:45)
== END 2022-10-18 16:36 | disposition home or self-care (01) | DRG 640 ==
LOC: CSHERS 06:06 → CSHTELE 08:54
PROVIDERS: ADMIT Family Medicine; ATTEND Internal Medicine
PROC: 5A1D70Z Performance of Urinary Filtration, Intermittent, Less than 6 Hours Per Day (ICD-10-PCS; principal; 2022-10-15)
PROC: 5A1D70Z Performance of Urinary Filtration, Intermittent, Less than 6 Hours Per Day (ICD-10-PCS; 2022-10-16)
PROC: 5A1D70Z Performance of Urinary Filtration, Intermittent, Less than 6 Hours Per Day (ICD-10-PCS; 2022-10-17)
PROC: 5A1D70Z Performance of Urinary Filtration, Intermittent, Less than 6 Hours Per Day (ICD-10-PCS; 2022-10-18)
DX: E87.70 Fluid overload, unspecified (principal); N18.6 End stage renal disease; I13.2 Hypertensive heart and chronic kidney disease with heart failure and with stage 5 chronic kidney disease, or end stage renal disease; Q61.3 Polycystic kidney, unspecified; I50.22 Chronic systolic (congestive) heart failure; E87.20 Acidosis, unspecified; E87.5 Hyperkalemia; F41.9 Anxiety disorder, unspecified; F32.A Depression, unspecified; E11.22 Type 2 diabetes mellitus with diabetic chronic kidney disease; I25.10 Atherosclerotic heart disease of native coronary artery without angina pectoris; D63.1 Anemia in chronic kidney disease; Z20.822 Contact with and (suspected) exposure to COVID-19; D69.6 Thrombocytopenia, unspecified; E83.39 Other disorders of phosphorus metabolism; R77.8 Other specified abnormalities of plasma proteins; Z90.49 Acquired absence of other specified parts of digestive tract; Z90.89 Acquired absence of other organs; Z90.5 Acquired absence of kidney; Z79.899 Other long term (current) drug therapy; Z71.6 Tobacco abuse counseling
CPT/HCPCS: 36415; 36416; 36600; 71045; 74018; 80048; 80053; 82805; 83735; 83880; 84100; 84484; 85025; 90935; 93005; 93010; 94640; 94760; 94762; 96374; 96375; C9113; G0257; J1644; J2270; J2272; J2405; J2550; J2765; J3475; J7611; J7620; Q5105; U0002

== ENCOUNTER 2022-11-22 07:59 | Inpatient (IN) | payer MEDICARE, SELFPAY ==
[2022-11-22 09:33] LABS: #Basophils 0.1 10x3/uL (0.0-0.2); #Eosinphils 0.6 10x3/uL (0.0-0.5); #Monocytes 0.3 10x3/uL (0.0-1.1); #Neutrophils 6.7 10x3/uL (1.5-8.4); %Basophils 0.7 % (0.0-2.0); %Neutrophils 77.8 % (40.0-75.0); Hematocrit 21.3 % (38.8-50.0); Hemoglobin 7.2 g/dL (13.5-17.5); Mean Corpuscular HGB CONC 33.8 g/dL (32.0-36.0); Mean Corpuscular Hemoglobin 29.9 pg (27.0-33.0); Mean Corpuscular Volume 88.4 fl (81.2-95.1); Platelet Count 151 10x3/uL (150-450); RBC Distribution Width 14.9 % (11.5-14.5); Red Blood Cell (RBC) Count 2.41 10x6/uL (4.32-5.72); White Blood Cell (WBC) Count 8.6 10x3/uL (3.5-10.5)
[2022-11-22 10:09] LABS: ALT (SGPT) Less than 7 U/L (8-55); AST (SGOT) 4 U/L (5-34); Albumin 3.7 g/dL (3.5-5.0); Alkaline Phosphatase 99 U/L (40-110); Anion Gap 30 mmol/L (10-20); Bilirubin, Total 0.8 mg/dL (0.2-1.2); Calc. Creatinine Clearance 0 mL/min (70-130); Calcium 10.2 mg/dL (7.8-10.44); Carbon Dioxide 12 mmol/L (22-29); Chloride 97 mmol/L (98-107); Estimated GFR 3; Globulin 3.5 g/dL (2.4-3.5); Glucose 130 mg/dL (70-105); Magnesium 1.3 mg/dL (1.6-2.6); Protein, Total 7.2 g/dL (6.0-8.3); Sodium 133 mmol/L (136-145)
[2022-11-22 10:16] LABS: BUN (Urea Nitrogen) Greater than 125 mg/dL (8.9-20.6); Potassium 6.2 mmol/L (3.5-5.1)
[2022-11-22] MEDS ORDERED: Acetaminophen 325 MG TAB PO PRN (10:42)
[2022-11-22] MEDS ORDERED: hydrALAZINE 20 MG/ML VIAL SLOW IVP PRN (10:46)
[2022-11-22 13:42] LABS: Lactic Acid 0.6 mmol/L (0.5-2.2)
[2022-11-22] MEDS ORDERED: Epoetin (ESRD) 10,000 UNITS/ML VIAL SC SCH (13:45)
[2022-11-22] MEDS ORDERED: FLU VACC QS2023-24(6MOS UP)/PF 60 MCG/0.5 ML SYRINGE IM ONE (14:15)
[2022-11-22] MEDS ORDERED: HYDROcodone/Acetaminophen 5/325 mg Tablet PO PRN (16:53)
[2022-11-22] MEDS ORDERED: Hydrocodone-Acetamin 15 ML UDCUP PO SCH (17:00)
[2022-11-22] MEDS: Ferrous Sulfate 325 MG TAB PO SCH (17:30)
[2022-11-22] MEDS: Carvedilol 6.25 MG TAB PO SCH (17:31)
[2022-11-22] MEDS: Heparin 5,000 UNITS/ML VIAL SC SCH (21:00)
[2022-11-22] MEDS: Atorvastatin Calcium 40 MG TAB PO SCH (21:00)
[2022-11-23] MEDS: Ondansetron PF 4 MG/2 ML Vial IVP PRN ×3 (00:05→19:28)
[2022-11-23] MEDS: Nicotine 14 MG PATCH TD SCH ×2 (00:07→23:45)
[2022-11-23 04:31] LABS: #Eosinphils 0.2 10x3/uL (0.0-0.5); #Monocytes 0.3 10x3/uL (0.0-1.1); #Neutrophils 5.1 10x3/uL (1.5-8.4); %Basophils 0.7 % (0.0-2.0); %Eosinophils 3.4 % (0.0-6.0); %Lymphocytes 7.2 % (18.0-47.0); %Monocytes 4.9 % (0.0-10.0); %Neutrophils 83.5 % (40.0-75.0); Hemoglobin 7.2 g/dL (13.5-17.5); Mean Corpuscular HGB CONC 34.3 g/dL (32.0-36.0); Mean Corpuscular Hemoglobin 29.9 pg (27.0-33.0); Mean Corpuscular Volume 87.1 fl (81.2-95.1); Mean Platelet Volume 9.3 fl (7.4-10.4); Platelet Count 139 10x3/uL (150-450); RBC Distribution Width 14.6 % (11.5-14.5); Red Blood Cell (RBC) Count 2.41 10x6/uL (4.32-5.72); White Blood Cell (WBC) Count 6.1 10x3/uL (3.5-10.5)
[2022-11-23 04:39] LABS: Anion Gap 19 mmol/L (10-20); BUN (Urea Nitrogen) 66 mg/dL (8.9-20.6); Calc. Creatinine Clearance 11 mL/min (70-130); Calcium 9.9 mg/dL (7.8-10.44); Carbon Dioxide 24 mmol/L (22-29); Chloride 98 mmol/L (98-107); Estimated GFR 6; Glucose 101 mg/dL (70-105); Potassium 4.4 mmol/L (3.5-5.1); Sodium 137 mmol/L (136-145)
[2022-11-23] MEDS: Heparin 5,000 UNITS/ML VIAL SC SCH ×2 (08:41→23:07)
[2022-11-23] MEDS ORDERED: Carvedilol 12.5 MG TAB PO SCH (09:00)
[2022-11-23] MEDS: Carvedilol 6.25 MG TAB PO SCH (09:08)
[2022-11-23] MEDS ORDERED: Promethazine 25 MG TAB PO PRN (11:37)
[2022-11-23] MEDS: Aspirin 81 mg Enteric Coated Tablet PO SCH (13:18)
[2022-11-23] MEDS: Ferrous Sulfate 325 MG TAB PO SCH ×2 (13:18→19:05)
[2022-11-23] MEDS: Sevelamer Carbonate 800 MG TAB PO SCH ×2 (13:19→19:05)
[2022-11-23] MEDS: Carvedilol 12.5 MG TAB PO SCH (19:28)
[2022-11-23] MEDS: Atorvastatin Calcium 40 MG TAB PO SCH (22:57)
[2022-11-24 06:09] LABS: #Eosinphils 0.3 10x3/uL (0.0-0.5); #Monocytes 0.2 10x3/uL (0.0-1.1); #Neutrophils 4.8 10x3/uL (1.5-8.4); %Basophils 0.5 % (0.0-2.0); %Eosinophils 4.9 % (0.0-6.0); %Lymphocytes 15.2 % (18.0-47.0); %Monocytes 3.8 % (0.0-10.0); %Neutrophils 75.3 % (40.0-75.0); Hematocrit 24.1 % (38.8-50.0); Mean Corpuscular HGB CONC 33.2 g/dL (32.0-36.0); Mean Corpuscular Hemoglobin 30.1 pg (27.0-33.0); Mean Corpuscular Volume 90.6 fl (81.2-95.1); Mean Platelet Volume 10.1 fl (7.4-10.4); Platelet Count 172 10x3/uL (150-450); RBC Distribution Width 14.7 % (11.5-14.5); Red Blood Cell (RBC) Count 2.66 10x6/uL (4.32-5.72); White Blood Cell (WBC) Count 6.4 10x3/uL (3.5-10.5)
[2022-11-24 06:22] LABS: Anion Gap 17 mmol/L (10-20); BUN (Urea Nitrogen) 32 mg/dL (8.9-20.6); Calc. Creatinine Clearance 16 mL/min (70-130); Calcium 9.9 mg/dL (7.8-10.44); Carbon Dioxide 29 mmol/L (22-29); Chloride 94 mmol/L (98-107); Estimated GFR 10; Glucose 106 mg/dL (70-105); Potassium 4.2 mmol/L (3.5-5.1); Sodium 136 mmol/L (136-145)
[2022-11-24] MEDS ORDERED: Heparin 10,000 UNITS/ 10 ML VIAL SLOW IVP PRN (08:24)
[2022-11-24] MEDS: Carvedilol 12.5 MG TAB PO SCH (08:46)
[2022-11-24] MEDS: Ferrous Sulfate 325 MG TAB PO SCH (08:46)
[2022-11-24] MEDS: Heparin 5,000 UNITS/ML VIAL SC SCH (08:46)
[2022-11-24] MEDS: Aspirin 81 mg Enteric Coated Tablet PO SCH (08:46)
[2022-11-24] MEDS: Sevelamer Carbonate 800 MG TAB PO SCH ×2 (08:46→11:48)
[2022-11-24 13:12] VITALS: BP 100/63; TEMP 99
== END 2022-11-24 14:38 | disposition home or self-care (01) | DRG 640 ==
LOC: SUATTDRO 07:59 → CSHERS 07:59 → CSHTELE 10:25 → OBSVTOIN 10:45
PROVIDERS: ADMIT Internal Medicine; ATTEND Internal Medicine
PROC: 5A1D70Z Performance of Urinary Filtration, Intermittent, Less than 6 Hours Per Day (ICD-10-PCS; principal; 2022-11-22)
PROC: 5A1D70Z Performance of Urinary Filtration, Intermittent, Less than 6 Hours Per Day (ICD-10-PCS; 2022-11-23)
PROC: 5A1D70Z Performance of Urinary Filtration, Intermittent, Less than 6 Hours Per Day (ICD-10-PCS; 2022-11-24)
DX: E87.5 Hyperkalemia (principal); J96.01 Acute respiratory failure with hypoxia; N18.6 End stage renal disease; I13.2 Hypertensive heart and chronic kidney disease with heart failure and with stage 5 chronic kidney disease, or end stage renal disease; I50.22 Chronic systolic (congestive) heart failure; E87.1 Hypo-osmolality and hyponatremia; E78.5 Hyperlipidemia, unspecified; F17.210 Nicotine dependence, cigarettes, uncomplicated; D63.1 Anemia in chronic kidney disease; Z91.158 Patient's noncompliance with renal dialysis for other reason; Z79.899 Other long term (current) drug therapy; Z99.2 Dependence on renal dialysis; Z79.82 Long term (current) use of aspirin; Z90.49 Acquired absence of other specified parts of digestive tract; Z90.5 Acquired absence of kidney; Z98.890 Other specified postprocedural states
CPT/HCPCS: 36415; 71045; 71250; 74177; 80048; 80053; 83605; 83690; 83735; 85025; 90935; 93005; 93010; 94762; G0257; J1644; J2405; Q0169; Q4081

== ENCOUNTER 2022-12-06 07:52 | Inpatient (IN) | payer MEDICARE ==
[2022-12-06 09:04] LABS: #Eosinphils 0.4 10x3/uL (0.0-0.5); #Monocytes 0.5 10x3/uL (0.0-1.1); #Neutrophils 5.8 10x3/uL (1.5-8.4); %Basophils 0.5 % (0.0-2.0); %Eosinophils 4.7 % (0.0-6.0); %Lymphocytes 12.3 % (18.0-47.0); Hematocrit 21.8 % (38.8-50.0); Hemoglobin 7.1 g/dL (13.5-17.5); Mean Corpuscular HGB CONC 32.6 g/dL (32.0-36.0); Mean Corpuscular Hemoglobin 28.9 pg (27.0-33.0); Mean Corpuscular Volume 88.6 fl (81.2-95.1); Mean Platelet Volume 9.6 fl (7.4-10.4); Platelet Count 123 10x3/uL (150-450); RBC Distribution Width 14.6 % (11.5-14.5); Red Blood Cell (RBC) Count 2.46 10x6/uL (4.32-5.72); White Blood Cell (WBC) Count 7.7 10x3/uL (3.5-10.5)
[2022-12-06 09:18] LABS: ALT (SGPT) Less than 7 U/L (8-55); AST (SGOT) 4 U/L (5-34); Albumin 3.8 g/dL (3.5-5.0); Alkaline Phosphatase 104 U/L (40-110); Anion Gap 28 mmol/L (10-20); Bilirubin, Total 1.2 mg/dL (0.2-1.2); Calc. Creatinine Clearance 0 mL/min (70-130); Calcium 10.4 mg/dL (7.8-10.44); Carbon Dioxide 15 mmol/L (22-29); Chloride 97 mmol/L (98-107); Estimated GFR 3; Globulin 3.7 g/dL (2.4-3.5); Glucose 105 mg/dL (70-105); Magnesium 1.4 mg/dL (1.6-2.6); Protein, Total 7.5 g/dL (6.0-8.3); Sodium 133 mmol/L (136-145)
[2022-12-06 09:29] LABS: BUN (Urea Nitrogen) 141 mg/dL (8.9-20.6)
[2022-12-06 09:40] LABS: Potassium 6.7 mmol/L (3.5-5.1)
[2022-12-06] MEDS ORDERED: Magnesium 2 GM/50 ML BAG (IN WATER) ONE (09:44)
[2022-12-06] MEDS ORDERED: Dextrose 50% Abboject 50 ML SYRINGE ONE (10:13)
[2022-12-06] MEDS ORDERED: Calcium Gluc 4.6 MEQ/10 ML (100 MG/ML) ONE (10:13)
[2022-12-06] MEDS ORDERED: Insulin Regular 300 UNITS/3 ML VIAL ONE (10:14)
[2022-12-06] MEDS ORDERED: Ondansetron ODT 4 MG TAB PO PRN (12:07)
[2022-12-06] MEDS ORDERED: Acetaminophen 325 MG TAB PO PRN (12:07)
[2022-12-06] MEDS ORDERED: Ondansetron PF 4 MG/2 ML Vial IVP PRN (12:07)
[2022-12-06] MEDS ORDERED: Dextrose 5% in Water 1,000 ML IV PRN (12:07)
[2022-12-06] MEDS ORDERED: Dextrose 50% Abboject 50 ML SYRINGE SLOW IVP PRN (12:07)
[2022-12-06] MEDS ORDERED: Glucagon 1 MG/ML KIT IM PRN (12:07)
[2022-12-06] MEDS ORDERED: HumaLOG 300 UNITS/3 ML VIAL SC PRN ×2 (12:07)
[2022-12-06] MEDS ORDERED: Nicotine 14 MG PATCH TD SCH (13:00)
[2022-12-06 15:01] LABS: Phosphorus 10.8 mg/dL (2.3-4.7)
[2022-12-06 19:54] LABS: Hemoglobin 7.3 g/dL (13.5-17.5)
[2022-12-06 20:27] LABS: Anion Gap 19 mmol/L (10-20); BUN (Urea Nitrogen) 48 mg/dL (8.9-20.6); Calc. Creatinine Clearance 0 mL/min (70-130); Calcium 10.1 mg/dL (7.8-10.44); Carbon Dioxide 24 mmol/L (22-29); Chloride 99 mmol/L (98-107); Estimated GFR 11; Glucose 88 mg/dL (70-105); Potassium 4.1 mmol/L (3.5-5.1); Sodium 138 mmol/L (136-145)
[2022-12-06] MEDS: Sevelamer Carbonate 800 MG TAB PO SCH (20:49)
[2022-12-06] MEDS: Carvedilol 6.25 MG TAB PO SCH (20:49)
[2022-12-06] MEDS: Ferrous Sulfate 325 MG TAB PO SCH (20:49)
[2022-12-06 21:06] VITALS: BMI 25.0
[2022-12-06] MEDS ORDERED: FLU VACC QS2023-24(6MOS UP)/PF 60 MCG/0.5 ML SYRINGE IM ONE (21:15)
[2022-12-06] MEDS: Atorvastatin Calcium 40 MG TAB PO SCH (21:32)
[2022-12-07 04:19] LABS: ALT (SGPT) Less than 7 U/L (8-55); AST (SGOT) 5 U/L (5-34); Albumin 3.4 g/dL (3.5-5.0); Alkaline Phosphatase 104 U/L (40-110); Anion Gap 20 mmol/L (10-20); BUN (Urea Nitrogen) 64 mg/dL (8.9-20.6); Bilirubin, Total 1.1 mg/dL (0.2-1.2); Calc. Creatinine Clearance 12 mL/min (70-130); Calcium 9.7 mg/dL (7.8-10.44); Carbon Dioxide 22 mmol/L (22-29); Chloride 98 mmol/L (98-107); Estimated GFR 7; Globulin 3.4 g/dL (2.4-3.5); Glucose 112 mg/dL (70-105); Magnesium 1.7 mg/dL (1.6-2.6); Phosphorus 5.8 mg/dL (2.3-4.7); Potassium 5.2 mmol/L (3.5-5.1); Protein, Total 6.8 g/dL (6.0-8.3); Sodium 135 mmol/L (136-145)
[2022-12-07 04:26] LABS: #Eosinphils 0.2 10x3/uL (0.0-0.5); #Monocytes 0.5 10x3/uL (0.0-1.1); #Neutrophils 6.3 10x3/uL (1.5-8.4); %Basophils 0.5 % (0.0-2.0); %Eosinophils 2.7 % (0.0-6.0); %Lymphocytes 6.3 % (18.0-47.0); %Monocytes 6.1 % (0.0-10.0); Hematocrit 20.3 % (38.8-50.0); Mean Corpuscular HGB CONC 34.5 g/dL (32.0-36.0); Mean Corpuscular Hemoglobin 30.4 pg (27.0-33.0); Mean Corpuscular Volume 88.3 fl (81.2-95.1); Mean Platelet Volume 10.4 fl (7.4-10.4); Platelet Count 124 10x3/uL (150-450); RBC Distribution Width 14.8 % (11.5-14.5); White Blood Cell (WBC) Count 7.5 10x3/uL (3.5-10.5)
[2022-12-07] MEDS: Carvedilol 6.25 MG TAB PO SCH ×2 (08:08→17:56)
[2022-12-07] MEDS: Sevelamer Carbonate 800 MG TAB PO SCH ×3 (08:08→17:56)
[2022-12-07] MEDS: Ferrous Sulfate 325 MG TAB PO SCH ×2 (08:08→20:11)
[2022-12-07] MEDS: EPOETIN ALFA-EPBX (ESRD) 4,000 UNITS/ML VIAL SC SCH ×2 (09:00→20:43)
[2022-12-07] MEDS: Atorvastatin Calcium 40 MG TAB PO SCH (20:10)
[2022-12-07] MEDS ORDERED: Nicotine 14 MG PATCH TD SCH (21:00)
[2022-12-08] MEDS: Sevelamer Carbonate 800 MG TAB PO SCH ×2 (12:26→12:28)
[2022-12-08] MEDS: Ferrous Sulfate 325 MG TAB PO SCH (12:28)
[2022-12-08] MEDS: Carvedilol 6.25 MG TAB PO SCH (12:28)
[2022-12-08 13:29] VITALS: BP 115/65; TEMP 97.6
== END 2022-12-08 14:00 | disposition home or self-care (01) | DRG 640 ==
LOC: CSHERS 07:52 → CSHTELE 10:41 → CSHERS 11:51
PROVIDERS: ADMIT Family Medicine; ATTEND Internal Medicine
DX: E87.5 Hyperkalemia (principal); N18.6 End stage renal disease; I13.2 Hypertensive heart and chronic kidney disease with heart failure and with stage 5 chronic kidney disease, or end stage renal disease; Q61.3 Polycystic kidney, unspecified; I50.22 Chronic systolic (congestive) heart failure; E83.42 Hypomagnesemia; E11.22 Type 2 diabetes mellitus with diabetic chronic kidney disease; M54.9 Dorsalgia, unspecified; F41.9 Anxiety disorder, unspecified; F32.A Depression, unspecified; F17.210 Nicotine dependence, cigarettes, uncomplicated; D63.1 Anemia in chronic kidney disease; G89.29 Other chronic pain; Z99.2 Dependence on renal dialysis; Z79.82 Long term (current) use of aspirin; Z79.899 Other long term (current) drug therapy; Z90.49 Acquired absence of other specified parts of digestive tract; Z90.5 Acquired absence of kidney
CPT/HCPCS: 36415; 36416; 80053; 83735; 84100; 85025; 86850; 86900; 86901; 90471; 90686; 90935; 93005; 94760; G0008; G0257; J0612; J1815; J3475; J7999; Q5105

== ENCOUNTER 2022-12-20 07:52 | Inpatient (IN) | payer MEDICARE, SELFPAY ==
[2022-12-20 08:43] LABS: #Eosinphils 0.3 10x3/uL (0.0-0.5); #Monocytes 0.5 10x3/uL (0.0-1.1); #Neutrophils 7.9 10x3/uL (1.5-8.4); %Basophils 0.4 % (0.0-2.0); %Lymphocytes 7.3 % (18.0-47.0); %Neutrophils 83.9 % (40.0-75.0); Hematocrit 19.4 % (38.8-50.0); Hemoglobin 6.5 g/dL (13.5-17.5); Mean Corpuscular HGB CONC 33.5 g/dL (32.0-36.0); Mean Corpuscular Hemoglobin 29.1 pg (27.0-33.0); Mean Platelet Volume 9.7 fl (7.4-10.4); Platelet Count 134 10x3/uL (150-450); RBC Distribution Width 14.6 % (11.5-14.5); Red Blood Cell (RBC) Count 2.23 10x6/uL (4.32-5.72); White Blood Cell (WBC) Count 9.4 10x3/uL (3.5-10.5)
[2022-12-20 09:03] LABS: ALT (SGPT) Less than 7 U/L (8-55); AST (SGOT) 5 U/L (5-34); Albumin 3.5 g/dL (3.5-5.0); Alkaline Phosphatase 89 U/L (40-110); Anion Gap 30 mmol/L (10-20); Bilirubin, Total 1.2 mg/dL (0.2-1.2); Calc. Creatinine Clearance 0 mL/min (70-130); Calcium 9.9 mg/dL (7.8-10.44); Carbon Dioxide 11 mmol/L (22-29); Chloride 97 mmol/L (98-107); Estimated GFR 3; Globulin 3.6 g/dL (2.4-3.5); Glucose 100 mg/dL (70-105); Magnesium 1.3 mg/dL (1.6-2.6); Protein, Total 7.1 g/dL (6.0-8.3); Sodium 131 mmol/L (136-145)
[2022-12-20 09:05] LABS: BUN (Urea Nitrogen) Greater than 125 mg/dL (8.9-20.6); Phosphorus 12.5 mg/dL (2.3-4.7); Potassium 6.6 mmol/L (3.5-5.1)
[2022-12-20] MEDS ORDERED: Morphine 4 MG/ML VIAL ONE (09:39)
[2022-12-20] MEDS ORDERED: Ondansetron PF 4 MG/2 ML Vial ONE (09:39)
[2022-12-20] MEDS ORDERED: EPOETIN ALFA-EPBX (ESRD) 4,000 UNITS/ML VIAL SC SCH (12:00)
[2022-12-20] MEDS ORDERED: Acetaminophen 650 MG Suppository PR PRN (12:55)
[2022-12-20] MEDS ORDERED: Ondansetron ODT 4 MG TAB PO PRN (12:55)
[2022-12-20] MEDS ORDERED: Insulin Regular 300 UNITS/3 ML VIAL IVP SCH (13:00)
[2022-12-20] MEDS ORDERED: Dextrose 50% Abboject 50 ML SYRINGE SLOW IVP SCH (13:00)
[2022-12-20] MEDS ORDERED: Calcium Gluc 4.6 MEQ/10 ML (100 MG/ML) SLOW IVP SCH (13:00)
[2022-12-20] MEDS ORDERED: Lidocaine 2% 6 ML (Jelly) SYR TOP SCH (13:15)
[2022-12-20] MEDS ORDERED: Dextrose 5% in Water 1,000 ML IV PRN (13:38)
[2022-12-20] MEDS ORDERED: Glucagon 1 MG/ML KIT IM PRN (13:38)
[2022-12-20] MEDS ORDERED: Insulin Regular 300 UNITS/3 ML VIAL SC PRN ×2 (13:38)
[2022-12-20] MEDS ORDERED: Dextrose 50% Abboject 50 ML SYRINGE SLOW IVP PRN (13:38)
[2022-12-20] MEDS ORDERED: Morphine 2 MG/ML VIAL SLOW IVP SCH (15:45)
[2022-12-20] MEDS ORDERED: FLU VACC QS2023-24(6MOS UP)/PF 60 MCG/0.5 ML SYRINGE IM ONE (16:15)
[2022-12-20] MEDS: Carvedilol 6.25 MG TAB PO SCH (18:30)
[2022-12-20] MEDS: Sevelamer Carbonate 800 MG TAB PO SCH (18:33)
[2022-12-20] MEDS: Atorvastatin Calcium 40 MG TAB PO SCH (21:01)
[2022-12-20] MEDS: Ferrous Sulfate 325 MG TAB PO SCH (21:01)
[2022-12-20] MEDS: Acetaminophen 325 MG TAB PO PRN (21:01)
[2022-12-20] MEDS: Nicotine 21 MG PATCH TOP PRN (21:01)
[2022-12-20 21:42] LABS: Anion Gap 22 mmol/L (10-20); BUN (Urea Nitrogen) 58 mg/dL (8.9-20.6); Calc. Creatinine Clearance 0 mL/min (70-130); Calcium 10.3 mg/dL (7.8-10.44); Carbon Dioxide 23 mmol/L (22-29); Chloride 97 mmol/L (98-107); Estimated GFR 8; Glucose 76 mg/dL (70-105); Potassium 3.8 mmol/L (3.5-5.1); Sodium 138 mmol/L (136-145)
[2022-12-20] MEDS ORDERED: traMADol HCl 50 MG TAB PO SCH (23:15)
[2022-12-21] MEDS: Acetaminophen 325 MG TAB PO PRN (00:51)
[2022-12-21] MEDS ORDERED: Metoclopramide HCl 10 MG/2 ML VIAL IVP SCH (01:00)
[2022-12-21 05:17] LABS: #Eosinphils 0.1 10x3/uL (0.0-0.5); #Monocytes 0.5 10x3/uL (0.0-1.1); #Neutrophils 8.7 10x3/uL (1.5-8.4); %Basophils 0.4 % (0.0-2.0); %Eosinophils 0.8 % (0.0-6.0); %Lymphocytes 5.7 % (18.0-47.0); %Monocytes 5.2 % (0.0-10.0); %Neutrophils 87.4 % (40.0-75.0); Hematocrit 21.8 % (38.8-50.0); Hemoglobin 7.5 g/dL (13.5-17.5); Mean Corpuscular HGB CONC 34.4 g/dL (32.0-36.0); Mean Corpuscular Hemoglobin 30.1 pg (27.0-33.0); Mean Corpuscular Volume 87.6 fl (81.2-95.1); Platelet Count 149 10x3/uL (150-450); RBC Distribution Width 14.5 % (11.5-14.5); Red Blood Cell (RBC) Count 2.49 10x6/uL (4.32-5.72); White Blood Cell (WBC) Count 9.9 10x3/uL (3.5-10.5)
[2022-12-21 05:22] LABS: Anion Gap 23 mmol/L (10-20); BUN (Urea Nitrogen) 66 mg/dL (8.9-20.6); Calc. Creatinine Clearance 0 mL/min (70-130); Calcium 9.9 mg/dL (7.8-10.44); Carbon Dioxide 21 mmol/L (22-29); Chloride 96 mmol/L (98-107); Estimated GFR 7; Glucose 89 mg/dL (70-105); Potassium 4.6 mmol/L (3.5-5.1); Sodium 135 mmol/L (136-145)
[2022-12-21] MEDS: Ferrous Sulfate 325 MG TAB PO SCH ×2 (08:50→21:47)
[2022-12-21] MEDS: Aspirin 81 mg Enteric Coated Tablet PO SCH (08:50)
[2022-12-21] MEDS: Sevelamer Carbonate 800 MG TAB PO SCH ×3 (08:50→17:48)
[2022-12-21] MEDS: Carvedilol 6.25 MG TAB PO SCH ×2 (08:51→17:49)
[2022-12-21] MEDS: Atorvastatin Calcium 40 MG TAB PO SCH (21:47)
[2022-12-21] MEDS: Nicotine 21 MG PATCH TOP PRN (21:50)
[2022-12-22 05:34] LABS: Hematocrit 20.7 % (38.8-50.0); Hemoglobin 6.9 g/dL (13.5-17.5); Mean Corpuscular HGB CONC 33.3 g/dL (32.0-36.0); Mean Corpuscular Hemoglobin 29.2 pg (27.0-33.0); Mean Corpuscular Volume 87.7 fl (81.2-95.1); Mean Platelet Volume 9.5 fl (7.4-10.4); Platelet Count 140 10x3/uL (150-450); RBC Distribution Width 14.5 % (11.5-14.5); Red Blood Cell (RBC) Count 2.36 10x6/uL (4.32-5.72); White Blood Cell (WBC) Count 6.8 10x3/uL (3.5-10.5)
[2022-12-22 05:57] LABS: Anion Gap 23 mmol/L (10-20); BUN (Urea Nitrogen) 79 mg/dL (8.9-20.6); Calc. Creatinine Clearance 0 mL/min (70-130); Calcium 9.6 mg/dL (7.8-10.44); Carbon Dioxide 21 mmol/L (22-29); Chloride 95 mmol/L (98-107); Estimated GFR 5; Glucose 96 mg/dL (70-105); Magnesium 1.6 mg/dL (1.6-2.6); Phosphorus 9.5 mg/dL (2.3-4.7); Potassium 4.6 mmol/L (3.5-5.1); Sodium 134 mmol/L (136-145)
[2022-12-22] MEDS ORDERED: Heparin 10,000 UNITS/ 10 ML VIAL SLOW IVP PRN (08:48)
[2022-12-22] MEDS: Sevelamer Carbonate 800 MG TAB PO SCH ×2 (08:53→15:44)
[2022-12-22] MEDS: Ferrous Sulfate 325 MG TAB PO SCH (08:54)
[2022-12-22] MEDS: Aspirin 81 mg Enteric Coated Tablet PO SCH (08:54)
[2022-12-22] MEDS: Carvedilol 6.25 MG TAB PO SCH (08:54)
[2022-12-22 09:22] VITALS: BP 132/69; TEMP 98.2
== END 2022-12-22 16:20 | disposition home or self-care (01) | DRG 640 ==
LOC: CSHERS 07:52 → CSHTELE 11:21 → OBSVTOIN 12-21 12:31
PROVIDERS: ADMIT Internal Medicine; ATTEND Internal Medicine
PROC: 5A1D70Z Performance of Urinary Filtration, Intermittent, Less than 6 Hours Per Day (ICD-10-PCS; principal; 2022-12-21)
DX: E87.5 Hyperkalemia (principal); N18.6 End stage renal disease; Q61.3 Polycystic kidney, unspecified; I13.2 Hypertensive heart and chronic kidney disease with heart failure and with stage 5 chronic kidney disease, or end stage renal disease; I50.22 Chronic systolic (congestive) heart failure; E87.1 Hypo-osmolality and hyponatremia; E78.5 Hyperlipidemia, unspecified; I25.10 Atherosclerotic heart disease of native coronary artery without angina pectoris; F41.9 Anxiety disorder, unspecified; F32.A Depression, unspecified; G89.29 Other chronic pain; E11.22 Type 2 diabetes mellitus with diabetic chronic kidney disease; D63.1 Anemia in chronic kidney disease; E83.42 Hypomagnesemia; E83.39 Other disorders of phosphorus metabolism; F17.210 Nicotine dependence, cigarettes, uncomplicated; Z91.151 Patient's noncompliance with renal dialysis due to financial hardship; Z79.82 Long term (current) use of aspirin; Z79.899 Other long term (current) drug therapy; Z99.2 Dependence on renal dialysis; Z90.49 Acquired absence of other specified parts of digestive tract; Z98.890 Other specified postprocedural states
CPT/HCPCS: 36415; 36416; 71045; 80048; 80053; 83735; 84100; 85025; 85027; 90935; 93005; 94760; G0257; J0612; J1644; J1815; J2270; J2405; J2765; J7999; Q0162; Q5105

== ENCOUNTER 2023-01-04 08:06 | Inpatient (IN) | payer MEDICARE ==
[2023-01-04 08:44] LABS: #Basophils 0.1 10x3/uL (0.0-0.2); #Eosinphils 0.2 10x3/uL (0.0-0.5); #Monocytes 0.4 10x3/uL (0.0-1.1); %Basophils 0.9 % (0.0-2.0); %Eosinophils 2.7 % (0.0-6.0); %Lymphocytes 9.3 % (18.0-47.0); %Monocytes 4.8 % (0.0-10.0); %Neutrophils 81.6 % (40.0-75.0); Hematocrit 19.9 % (38.8-50.0); Hemoglobin 6.7 g/dL (13.5-17.5); Mean Corpuscular HGB CONC 33.7 g/dL (32.0-36.0); Mean Corpuscular Hemoglobin 29.4 pg (27.0-33.0); Mean Corpuscular Volume 87.3 fl (81.2-95.1); Platelet Count 177 10x3/uL (150-450); RBC Distribution Width 14.9 % (11.5-14.5); Red Blood Cell (RBC) Count 2.28 10x6/uL (4.32-5.72); White Blood Cell (WBC) Count 8.6 10x3/uL (3.5-10.5)
[2023-01-04 09:07] LABS: ALT (SGPT) 57 U/L (8-55); AST (SGOT) 68 U/L (5-34); Albumin 3.7 g/dL (3.5-5.0); Alkaline Phosphatase 106 U/L (40-110); Anion Gap 32 mmol/L (10-20); Bilirubin, Total 1.2 mg/dL (0.2-1.2); Calc. Creatinine Clearance 0 mL/min (70-130); Calcium 10.1 mg/dL (7.8-10.44); Chloride 97 mmol/L (98-107); Estimated GFR 3; Globulin 3.7 g/dL (2.4-3.5); Glucose 85 mg/dL (70-105); Magnesium 1.5 mg/dL (1.6-2.6); Protein, Total 7.4 g/dL (6.0-8.3); Sodium 131 mmol/L (136-145)
[2023-01-04 09:31] LABS: Phosphorus 14.1 mg/dL (2.3-4.7)
[2023-01-04 09:32] LABS: BUN (Urea Nitrogen) Greater than 125 mg/dL (8.9-20.6); Carbon Dioxide 9 mmol/L (22-29); Potassium 7.4 mmol/L (3.5-5.1)
[2023-01-04] MEDS ORDERED: Calcium Chloride 1 GM/10 ML Abboject SYRINGE ONE (09:42)
[2023-01-04] MEDS ORDERED: Dextrose 50% Abboject 50 ML SYRINGE ONE (09:42)
[2023-01-04] MEDS ORDERED: Insulin Regular 300 UNITS/3 ML VIAL ONE (09:43)
[2023-01-04] MEDS ORDERED: fentaNYL 50 mcg/mL 1 mL Vial ONE (09:52)
[2023-01-04] MEDS ORDERED: Guaifenesin DM 100-10/5 ML UDCUP PO PRN (10:23)
[2023-01-04] MEDS ORDERED: Senokot S 8.6-50 MG TAB PO PRN (10:23)
[2023-01-04] MEDS ORDERED: Ondansetron PF 4 MG/2 ML Vial ONE (10:24)
[2023-01-04] MEDS: HYDROcodone/Acetaminophen 5/325 mg Tablet PO PRN ×3 (12:25→22:17)
[2023-01-04] MEDS: Ondansetron PF 4 MG/2 ML Vial IVP PRN (12:28)
[2023-01-04] MEDS ORDERED: Sodium Bicarbonate 150 MEQ in Dextrose 5% in Water 1,000 ML IV SCH (13:30)
[2023-01-04] MEDS ORDERED: Magnesium Sulfate 4 GM in Sodium Chloride 0.9% 250 ML 250 ML IVPB SCH (13:30)
[2023-01-04] MEDS: Sevelamer Carbonate 800 MG TAB PO SCH ×2 (13:53→17:16)
[2023-01-04] MEDS: Magnesium 2 GM/50 ML(in water) 2 GM in Premix 1 BAG IVPB SCH ×2 (14:11→16:21)
[2023-01-04] MEDS ORDERED: LOKELMA 10 GM PACKET PO SCH (15:00)
[2023-01-04 15:05] VITALS: BMI 24.2
[2023-01-04 15:12] LABS: Anion Gap 32 mmol/L (10-20); Calc. Creatinine Clearance 5 mL/min (70-130); Calcium 9.7 mg/dL (7.8-10.44); Chloride 99 mmol/L (98-107); Estimated GFR 3; Glucose 66 mg/dL (70-105); Sodium 131 mmol/L (136-145)
[2023-01-04 15:17] LABS: BUN (Urea Nitrogen) Greater than 125 mg/dL (8.9-20.6); Carbon Dioxide 8 mmol/L (22-29); Potassium 7.9 mmol/L (3.5-5.1)
[2023-01-04] MEDS: Heparin 10,000 UNITS/ 10 ML VIAL FS PRN (15:59)
[2023-01-04] MEDS: Carvedilol 6.25 MG TAB PO SCH ×2 (17:15→17:35)
[2023-01-04] MEDS: Nicotine 14 MG PATCH TD SCH (17:16)
[2023-01-04] MEDS: Atorvastatin Calcium 40 MG TAB PO SCH (20:48)
[2023-01-05] MEDS: HYDROcodone/Acetaminophen 5/325 mg Tablet PO PRN (02:21)
[2023-01-05] MEDS: Ondansetron PF 4 MG/2 ML Vial IVP PRN ×3 (02:21→17:40)
[2023-01-05 04:08] LABS: #Basophils 0.1 10x3/uL (0.0-0.2); #Eosinphils 0.3 10x3/uL (0.0-0.5); #Monocytes 0.3 10x3/uL (0.0-1.1); %Eosinophils 3.8 % (0.0-6.0); %Lymphocytes 7.4 % (18.0-47.0); %Monocytes 4.4 % (0.0-10.0); %Neutrophils 82.9 % (40.0-75.0); Hematocrit 21.5 % (38.8-50.0); Hemoglobin 7.5 g/dL (13.5-17.5); Mean Corpuscular HGB CONC 34.9 g/dL (32.0-36.0); Platelet Count 175 10x3/uL (150-450); RBC Distribution Width 15.5 % (11.5-14.5); Red Blood Cell (RBC) Count 2.59 10x6/uL (4.32-5.72); White Blood Cell (WBC) Count 7.3 10x3/uL (3.5-10.5)
[2023-01-05 04:20] LABS: Anion Gap 20 mmol/L (10-20); BUN (Urea Nitrogen) 53 mg/dL (8.9-20.6); Calc. Creatinine Clearance 12 mL/min (70-130); Calcium 9.2 mg/dL (7.8-10.44); Carbon Dioxide 25 mmol/L (22-29); Chloride 95 mmol/L (98-107); Estimated GFR 7; Glucose 154 mg/dL (70-105); Sodium 136 mmol/L (136-145)
[2023-01-05] MEDS ORDERED: Promethazine HCl 12.5 MG, Admixture Fee 1 EACH in Sodium Chloride 0.9% 50 ML IVPB SCH (06:15)
[2023-01-05] MEDS ORDERED: EPOETIN ALFA-EPBX (ESRD) 4,000 UNITS/ML VIAL SC SCH (09:00)
[2023-01-05] MEDS ORDERED: EPOETIN ALFA-EPBX (ESRD) 3,000 UNITS/ML VIAL SC SCH (09:00)
[2023-01-05] MEDS: Sevelamer Carbonate 800 MG TAB PO SCH ×3 (09:16→17:40)
[2023-01-05] MEDS: Carvedilol 6.25 MG TAB PO SCH ×2 (09:16→17:40)
[2023-01-05] MEDS: Aspirin 81 mg Enteric Coated Tablet PO SCH (09:16)
[2023-01-05] MEDS: Heparin 10,000 UNITS/ 10 ML VIAL FS PRN (09:29)
[2023-01-05] MEDS: Nicotine 14 MG PATCH TD SCH (17:40)
[2023-01-05] MEDS: Atorvastatin Calcium 40 MG TAB PO SCH (20:40)
[2023-01-06 05:50] LABS: #Basophils 0.1 10x3/uL (0.0-0.2); #Eosinphils 0.4 10x3/uL (0.0-0.5); #Monocytes 0.5 10x3/uL (0.0-1.1); #Neutrophils 5.7 10x3/uL (1.5-8.4); %Basophils 0.7 % (0.0-2.0); %Eosinophils 4.7 % (0.0-6.0); %Lymphocytes 11.5 % (18.0-47.0); %Monocytes 6.4 % (0.0-10.0); %Neutrophils 76.4 % (40.0-75.0); Hematocrit 26.4 % (38.8-50.0); Hemoglobin 8.7 g/dL (13.5-17.5); Mean Corpuscular Hemoglobin 28.9 pg (27.0-33.0); Mean Corpuscular Volume 87.7 fl (81.2-95.1); Mean Platelet Volume 9.9 fl (7.4-10.4); Platelet Count 195 10x3/uL (150-450); RBC Distribution Width 15.7 % (11.5-14.5); Red Blood Cell (RBC) Count 3.01 10x6/uL (4.32-5.72); White Blood Cell (WBC) Count 7.5 10x3/uL (3.5-10.5)
[2023-01-06 05:52] LABS: Anion Gap 17 mmol/L (10-20); BUN (Urea Nitrogen) 27 mg/dL (8.9-20.6); Calc. Creatinine Clearance 17 mL/min (70-130); Calcium 9.8 mg/dL (7.8-10.44); Carbon Dioxide 26 mmol/L (22-29); Chloride 96 mmol/L (98-107); Estimated GFR 11; Glucose 99 mg/dL (70-105); Potassium 4.4 mmol/L (3.5-5.1); Sodium 135 mmol/L (136-145)
[2023-01-06] MEDS: Aspirin 81 mg Enteric Coated Tablet PO SCH (08:46)
[2023-01-06] MEDS: Carvedilol 6.25 MG TAB PO SCH (08:46)
[2023-01-06] MEDS: Sevelamer Carbonate 800 MG TAB PO SCH ×3 (08:46→12:17)
[2023-01-06 20:07] VITALS: BP 107/70; TEMP 98.5
== END 2023-01-06 15:08 | disposition home or self-care (01) | DRG 640 ==
LOC: CSHERS 08:06 → CSHIMCU 10:21 → CSHTELE 01-05 16:38
PROVIDERS: ADMIT Hospitalist; ATTEND Internal Medicine
PROC: 30233N1 Transfusion of Nonautologous Red Blood Cells into Peripheral Vein, Percutaneous Approach (ICD-10-PCS; principal; 2023-01-04)
PROC: 5A1D70Z Performance of Urinary Filtration, Intermittent, Less than 6 Hours Per Day (ICD-10-PCS; 2023-01-04)
PROC: 5A1D70Z Performance of Urinary Filtration, Intermittent, Less than 6 Hours Per Day (ICD-10-PCS; 2023-01-05)
DX: E87.5 Hyperkalemia (principal); N18.6 End stage renal disease; I13.2 Hypertensive heart and chronic kidney disease with heart failure and with stage 5 chronic kidney disease, or end stage renal disease; Q61.3 Polycystic kidney, unspecified; E87.29 Other acidosis; E11.22 Type 2 diabetes mellitus with diabetic chronic kidney disease; D63.1 Anemia in chronic kidney disease; E78.5 Hyperlipidemia, unspecified; Z99.2 Dependence on renal dialysis; Z90.49 Acquired absence of other specified parts of digestive tract; Z90.89 Acquired absence of other organs; F41.9 Anxiety disorder, unspecified; F32.A Depression, unspecified; Z98.890 Other specified postprocedural states; F17.210 Nicotine dependence, cigarettes, uncomplicated; Z79.82 Long term (current) use of aspirin; Z79.899 Other long term (current) drug therapy; I25.10 Atherosclerotic heart disease of native coronary artery without angina pectoris; G89.29 Other chronic pain; M54.9 Dorsalgia, unspecified; I50.9 Heart failure, unspecified; E83.42 Hypomagnesemia; E83.39 Other disorders of phosphorus metabolism
CPT/HCPCS: 36415; 36430; 71045; 80048; 80053; 83735; 84100; 85025; 86850; 86900; 86901; 90935; 93005; 93010; 96374; 96375; G0257; J1644; J1815; J2405; J2550; J3010; J3475; J7070; J7999; P9016; Q5105

== ENCOUNTER 2023-01-18 08:01 | Emergency (ER) | payer MEDICARE ==
[2023-01-18 08:47] LABS: #Basophils 0.1 10x3/uL (0.0-0.2); #Eosinphils 0.5 10x3/uL (0.0-0.5); #Monocytes 0.5 10x3/uL (0.0-1.1); %Basophils 0.9 % (0.0-2.0); %Eosinophils 5.9 % (0.0-6.0); %Lymphocytes 10.1 % (18.0-47.0); %Monocytes 5.6 % (0.0-10.0); %Neutrophils 77.1 % (40.0-75.0); Hematocrit 22.9 % (38.8-50.0); Hemoglobin 7.8 g/dL (13.5-17.5); Mean Corpuscular HGB CONC 34.1 g/dL (32.0-36.0); Mean Corpuscular Hemoglobin 29.2 pg (27.0-33.0); Mean Corpuscular Volume 85.8 fl (81.2-95.1); Mean Platelet Volume 10.1 fl (7.4-10.4); Platelet Count 152 10x3/uL (150-450); RBC Distribution Width 15.4 % (11.5-14.5); Red Blood Cell (RBC) Count 2.67 10x6/uL (4.32-5.72)
[2023-01-18 09:39] LABS: ALT (SGPT) 8 U/L (8-55); AST (SGOT) 7 U/L (5-34); Albumin 3.5 g/dL (3.5-5.0); Alkaline Phosphatase 103 U/L (40-110); Anion Gap 31 mmol/L (10-20); Bilirubin, Total 0.9 mg/dL (0.2-1.2); Calc. Creatinine Clearance 0 mL/min (70-130); Calcium 9.5 mg/dL (7.8-10.44); Chloride 100 mmol/L (98-107); Estimated GFR 3; Glucose 102 mg/dL (70-105); Magnesium 1.5 mg/dL (1.6-2.6); Protein, Total 6.5 g/dL (6.0-8.3); Sodium 133 mmol/L (136-145)
[2023-01-18 09:42] LABS: Troponin I 0.168 ng/mL (< 0.028)
[2023-01-18 09:48] LABS: BUN (Urea Nitrogen) 133 mg/dL (8.4-25.7)
[2023-01-18 10:02] LABS: Carbon Dioxide 9 mmol/L (22-29); Phosphorus 12.8 mg/dL (2.3-4.7); Potassium 6.9 mmol/L (3.5-5.1)
[2023-01-18] MEDS ORDERED: Calcium Chloride 1 GM/10 ML Abboject SYRINGE ONE (10:25)
[2023-01-18] MEDS ORDERED: Sodium Bicarb 50 MEQ/50 ML Abboject 8.4% SYRINGE ONE (10:25)
[2023-01-18] MEDS ORDERED: HYDROcodone/Acetaminophen 5/325 mg Tablet ONE (10:25)
[2023-01-18] MEDS ORDERED: Dextrose 50% Abboject 50 ML SYRINGE ONE (10:26)
[2023-01-18] MEDS ORDERED: Insulin Regular 300 UNITS/3 ML VIAL ONE (10:26)
[2023-01-18] MEDS ORDERED: Heparin 10,000 UNITS/ 10 ML VIAL FS PRN (13:07)
[2023-01-18 19:47] LABS: Phosphorus 5.6 mg/dL (2.3-4.7)
[2023-01-18 19:48] LABS: Anion Gap 22 mmol/L (10-20); BUN (Urea Nitrogen) 52 mg/dL (8.4-25.7); Calc. Creatinine Clearance 0 mL/min (70-130); Calcium 9.7 mg/dL (7.8-10.44); Carbon Dioxide 23 mmol/L (22-29); Chloride 98 mmol/L (98-107); Estimated GFR 7; Glucose 79 mg/dL (70-105); Sodium 139 mmol/L (136-145)
== END 2023-01-18 20:20 | disposition home or self-care (01) ==
LOC: CSHERS 08:01
DX: E11.22 Type 2 diabetes mellitus with diabetic chronic kidney disease (principal); I12.0 Hypertensive chronic kidney disease with stage 5 chronic kidney disease or end stage renal disease; N18.6 End stage renal disease; N17.9 Acute kidney failure, unspecified; Z99.2 Dependence on renal dialysis; J81.1 Chronic pulmonary edema; F17.210 Nicotine dependence, cigarettes, uncomplicated
CPT/HCPCS: 36415; 71045; 80053; 83735; 83880; 84100; 84484; 85025; 90935; 93005; 96374; 96375; G0257; J1644; J1815; J7999

== ENCOUNTER 2023-01-25 07:56 | Inpatient (IN) | payer MEDICARE ==
[2023-01-25 08:52] LABS: #Basophils 0.1 10x3/uL (0.0-0.2); #Eosinphils 0.5 10x3/uL (0.0-0.5); #Monocytes 0.4 10x3/uL (0.0-1.1); #Neutrophils 6.2 10x3/uL (1.5-8.4); %Basophils 0.7 % (0.0-2.0); %Lymphocytes 14.5 % (18.0-47.0); %Monocytes 4.3 % (0.0-10.0); %Neutrophils 73.9 % (40.0-75.0); Hematocrit 24.8 % (38.8-50.0); Hemoglobin 8.3 g/dL (13.5-17.5); Mean Corpuscular HGB CONC 33.5 g/dL (32.0-36.0); Mean Corpuscular Hemoglobin 29.4 pg (27.0-33.0); Mean Corpuscular Volume 87.9 fl (81.2-95.1); Mean Platelet Volume 9.7 fl (7.4-10.4); Platelet Count 195 10x3/uL (150-450); RBC Distribution Width 15.6 % (11.5-14.5); Red Blood Cell (RBC) Count 2.82 10x6/uL (4.32-5.72); White Blood Cell (WBC) Count 8.4 10x3/uL (3.5-10.5)
[2023-01-25 09:13] LABS: ALT (SGPT) 10 U/L (8-55); AST (SGOT) 7 U/L (5-34); Albumin 3.7 g/dL (3.5-5.0); Alkaline Phosphatase 107 U/L (40-110); Anion Gap 28 mmol/L (10-20); BUN (Urea Nitrogen) 119 mg/dL (8.4-25.7); Calc. Creatinine Clearance 0 mL/min (70-130); Calcium 10.2 mg/dL (7.8-10.44); Carbon Dioxide 14 mmol/L (22-29); Chloride 97 mmol/L (98-107); Estimated GFR 3; Globulin 3.8 g/dL (2.4-3.5); Glucose 95 mg/dL (70-105); Magnesium 1.4 mg/dL (1.6-2.6); Protein, Total 7.5 g/dL (6.0-8.3); Sodium 132 mmol/L (136-145)
[2023-01-25 09:30] LABS: Potassium 6.6 mmol/L (3.5-5.1)
[2023-01-25] MEDS ORDERED: Calcium Gluconate 13.8 MEQ in Sodium Chloride 0.9% 100 ML IVPB SCH (10:00)
[2023-01-25] MEDS ORDERED: Insulin Regular 300 UNITS/3 ML VIAL ONE (10:14)
[2023-01-25] MEDS ORDERED: Dextrose 50% Abboject 50 ML SYRINGE ONE (10:14)
[2023-01-25] MEDS ORDERED: Acetaminophen 325 MG TAB PO PRN (10:15)
[2023-01-25] MEDS ORDERED: Sodium Bicarb 50 MEQ/50 ML VIAL ONE (10:19)
[2023-01-25] MEDS ORDERED: Heparin 10,000 UNITS/ 10 ML VIAL FS PRN (12:55)
[2023-01-25 21:03] VITALS: BMI 23.0
[2023-01-25] MEDS ORDERED: Carvedilol 6.25 MG TAB PO SCH (21:45)
[2023-01-25] MEDS: Nicotine 14 MG PATCH TOP PRN (21:51)
[2023-01-25] MEDS ORDERED: EPOETIN ALFA-EPBX (ESRD) 10,000 UNITS/ML VIAL SC SCH (23:00)
[2023-01-26 03:55] LABS: Anion Gap 20 mmol/L (10-20); BUN (Urea Nitrogen) 58 mg/dL (8.4-25.7); Calc. Creatinine Clearance 10 mL/min (70-130); Calcium 9.2 mg/dL (7.8-10.44); Carbon Dioxide 23 mmol/L (22-29); Chloride 96 mmol/L (98-107); Estimated GFR 6; Glucose 75 mg/dL (70-105); Potassium 4.8 mmol/L (3.5-5.1); Sodium 134 mmol/L (136-145)
[2023-01-26] MEDS ORDERED: Carvedilol 6.25 MG TAB PO SCH (08:00)
[2023-01-26] MEDS: Sevelamer Carbonate 800 MG TAB PO SCH ×3 (08:35→17:05)
[2023-01-26] MEDS: Ferrous Sulfate 325 MG TAB PO SCH ×2 (08:36→21:03)
[2023-01-26] MEDS: Aspirin 81 mg Enteric Coated Tablet PO SCH (08:36)
[2023-01-26 11:30] LABS: Magnesium 1.5 mg/dL (1.6-2.6)
[2023-01-26] MEDS: Carvedilol 6.25 MG TAB PO SCH ×2 (11:37→17:05)
[2023-01-26] MEDS: Nicotine 14 MG PATCH TOP PRN (21:03)
[2023-01-27] MEDS: Aspirin 81 mg Enteric Coated Tablet PO SCH (09:08)
[2023-01-27] MEDS: Sevelamer Carbonate 800 MG TAB PO SCH ×2 (09:08→13:28)
[2023-01-27] MEDS: Ferrous Sulfate 325 MG TAB PO SCH (09:08)
[2023-01-27] MEDS: Carvedilol 6.25 MG TAB PO SCH (09:12)
[2023-01-27] MEDS ORDERED: Magnesium 2 GM/50 ML(in water) 2 GM in Premix 1 BAG IVPB SCH ×2 (12:00→14:30)
[2023-01-27 16:19] VITALS: BP 130/76; TEMP 98.1
== END 2023-01-27 16:10 | disposition home or self-care (01) | DRG 640 ==
LOC: CSHERS 07:56 → CSHERHOLD 09:54 → CSHTELE 18:46 → OBSVTOIN 01-27 13:02
PROVIDERS: ADMIT Family Medicine; ATTEND Internal Medicine
DX: E87.5 Hyperkalemia (principal); N18.6 End stage renal disease; I13.2 Hypertensive heart and chronic kidney disease with heart failure and with stage 5 chronic kidney disease, or end stage renal disease; Z99.2 Dependence on renal dialysis; E83.42 Hypomagnesemia; E87.20 Acidosis, unspecified; D63.1 Anemia in chronic kidney disease; E11.22 Type 2 diabetes mellitus with diabetic chronic kidney disease; Z79.899 Other long term (current) drug therapy; Z79.82 Long term (current) use of aspirin; F41.9 Anxiety disorder, unspecified; F32.A Depression, unspecified; G89.29 Other chronic pain; M54.9 Dorsalgia, unspecified; I50.9 Heart failure, unspecified; I25.10 Atherosclerotic heart disease of native coronary artery without angina pectoris; Z90.49 Acquired absence of other specified parts of digestive tract; Z98.890 Other specified postprocedural states; Z79.01 Long term (current) use of anticoagulants; E78.5 Hyperlipidemia, unspecified; F17.210 Nicotine dependence, cigarettes, uncomplicated
CPT/HCPCS: 36415; 71046; 74176; 80048; 80053; 83690; 83735; 85025; 90935; 93005; 94760; 96372; G0257; G0378; J0612; J1644; J1815; J3475; J3490; J7999; Q5105

== ENCOUNTER 2023-02-15 07:55 | Emergency (ER) | payer MEDICARE ==
[2023-02-15 08:30] LABS: #Basophils 0.1 10x3/uL (0.0-0.2); #Eosinphils 0.3 10x3/uL (0.0-0.5); #Monocytes 0.3 10x3/uL (0.0-1.1); #Neutrophils 5.1 10x3/uL (1.5-8.4); %Basophils 0.9 % (0.0-2.0); %Eosinophils 4.1 % (0.0-6.0); %Lymphocytes 14.3 % (18.0-47.0); %Monocytes 4.7 % (0.0-10.0); %Neutrophils 75.3 % (40.0-75.0); Hemoglobin 9.9 g/dL (13.5-17.5); Mean Corpuscular Hemoglobin 29.1 pg (27.0-33.0); Mean Corpuscular Volume 88.2 fl (81.2-95.1); Mean Platelet Volume 10.8 fl (7.4-10.4); Platelet Count 180 10x3/uL (150-450); RBC Distribution Width 16.2 % (11.5-14.5); White Blood Cell (WBC) Count 6.8 10x3/uL (3.5-10.5)
[2023-02-15 09:01] LABS: ALT (SGPT) 27 U/L (8-55); AST (SGOT) 28 U/L (5-34); Albumin 3.9 g/dL (3.5-5.0); Alkaline Phosphatase 131 U/L (40-110); Anion Gap 32 mmol/L (10-20); BUN (Urea Nitrogen) 117 mg/dL (8.4-25.7); Bilirubin, Total 1.6 mg/dL (0.2-1.2); Calc. Creatinine Clearance 0 mL/min (70-130); Calcium 9.8 mg/dL (7.8-10.44); Carbon Dioxide 16 mmol/L (22-29); Chloride 91 mmol/L (98-107); Estimated GFR 3; Globulin 3.8 g/dL (2.4-3.5); Glucose 109 mg/dL (70-105); Protein, Total 7.7 g/dL (6.0-8.3); Sodium 132 mmol/L (136-145)
[2023-02-15] MEDS ORDERED: Calcium Chloride 1 GM/10 ML Abboject SYRINGE ONE (09:30)
[2023-02-15] MEDS ORDERED: Sodium Bicarb 50 MEQ/50 ML Abboject 8.4% SYRINGE ONE (09:31)
[2023-02-15] MEDS ORDERED: Insulin Regular 300 UNITS/3 ML VIAL ONE (09:31)
[2023-02-15 09:33] LABS: Potassium 6.6 mmol/L (3.5-5.1)
[2023-02-15] MEDS ORDERED: Heparin 10,000 UNITS/ 10 ML VIAL ONE (10:47)
== END 2023-02-15 16:32 | disposition home or self-care (01) ==
LOC: CSHERS 07:55
DX: E87.5 Hyperkalemia (principal); E87.70 Fluid overload, unspecified; F17.210 Nicotine dependence, cigarettes, uncomplicated; I12.0 Hypertensive chronic kidney disease with stage 5 chronic kidney disease or end stage renal disease; N18.6 End stage renal disease; Z99.2 Dependence on renal dialysis
CPT/HCPCS: 36416; 71045; 80053; 85025; 90935; 93005; 96374; 96375; G0257; J1644; J1815

== ENCOUNTER 2023-02-19 09:46 | Emergency (ER) | payer MEDICARE ==
[2023-02-19 10:42] LABS: #Basophils 0.1 10x3/uL (0.0-0.2); #Eosinphils 0.3 10x3/uL (0.0-0.5); #Monocytes 0.4 10x3/uL (0.0-1.1); %Basophils 0.7 % (0.0-2.0); %Eosinophils 3.7 % (0.0-6.0); %Lymphocytes 15.7 % (18.0-47.0); %Monocytes 5.3 % (0.0-10.0); %Neutrophils 74.3 % (40.0-75.0); Hematocrit 27.6 % (38.8-50.0); Mean Corpuscular HGB CONC 32.6 g/dL (32.0-36.0); Mean Corpuscular Hemoglobin 29.4 pg (27.0-33.0); Mean Corpuscular Volume 90.2 fl (81.2-95.1); Mean Platelet Volume 10.4 fl (7.4-10.4); Platelet Count 155 10x3/uL (150-450); RBC Distribution Width 16.2 % (11.5-14.5); Red Blood Cell (RBC) Count 3.06 10x6/uL (4.32-5.72); White Blood Cell (WBC) Count 6.8 10x3/uL (3.5-10.5)
[2023-02-19] MEDS ORDERED: Ipratropium/Albuterol 3 ML NEB ONE (10:42)
[2023-02-19 10:54] LABS: INR-International Normal Ratio 1.2; PTT 26.9 sec (22.0-33.0); Prothrombin Time 12.4 sec (9.5-12.1)
[2023-02-19 11:01] LABS: ALT (SGPT) 41 U/L (8-55); AST (SGOT) 18 U/L (5-34); Albumin 3.7 g/dL (3.5-5.0); Alkaline Phosphatase 115 U/L (40-110); Anion Gap 25 mmol/L (10-20); BUN (Urea Nitrogen) 107 mg/dL (8.4-25.7); Bilirubin, Total 1.4 mg/dL (0.2-1.2); Calc. Creatinine Clearance 0 mL/min (70-130); Calcium 9.8 mg/dL (7.8-10.44); Carbon Dioxide 19 mmol/L (22-29); Chloride 95 mmol/L (98-107); Estimated GFR 4; Globulin 3.3 g/dL (2.4-3.5); Glucose 98 mg/dL (70-105); Lipase 53 U/L (8-78); Magnesium 1.5 mg/dL (1.6-2.6); Sodium 133 mmol/L (136-145); Troponin I 0.156 ng/mL (< 0.028)
[2023-02-19 11:03] LABS: Phosphorus 9.2 mg/dL (2.3-4.7)
[2023-02-19 11:04] LABS: Potassium 6.4 mmol/L (3.5-5.1)
[2023-02-19] MEDS ORDERED: Morphine 4 MG/ML VIAL ONE (12:29)
[2023-02-19] MEDS ORDERED: Ondansetron PF 4 MG/2 ML Vial ONE (12:29)
[2023-02-19] MEDS ORDERED: LOKELMA 10 GM PACKET PO SCH (13:00)
[2023-02-19] MEDS ORDERED: Morphine 2 MG/ML VIAL ONE (16:01)
[2023-02-19 17:28] LABS: Actual Bicarbonate (HCO3v) 22.3 mEq/L (22-28); Analyzer IN Cardio CS ER; Base Excess -2.4 mEq/L (-2 - +2); Calcium, Ionized (venous) 1.13 mmol/L (1.16-1.32); Chloride (VBG) 92 mmol/L (98-106); Hematocrit-VBG 31 % (42.0-52.0); Hemoglobin (Hb) 10.4 g/dL (13.1-17.2); Puncture Site Other Site; RapidComm Collect By cbn; Sodium 133 mmol/L (133-146); pH (venous) 7.387 (7.32-7.43)
== END 2023-02-19 22:35 | disposition home or self-care (01) ==
LOC: CSHERS 09:46
DX: E87.70 Fluid overload, unspecified (principal); E11.22 Type 2 diabetes mellitus with diabetic chronic kidney disease; I12.0 Hypertensive chronic kidney disease with stage 5 chronic kidney disease or end stage renal disease; N18.6 End stage renal disease; Z99.2 Dependence on renal dialysis; E78.5 Hyperlipidemia, unspecified; F17.210 Nicotine dependence, cigarettes, uncomplicated; E87.5 Hyperkalemia; E83.42 Hypomagnesemia
CPT/HCPCS: 36415; 71045; 80053; 82805; 83690; 83735; 84100; 84484; 85025; 85610; 85730; 90935; 93005; 94640; 96374; 96375; 96376; G0257; J2270; J2272; J2405; J7620

== ENCOUNTER 2023-02-24 08:17 | Inpatient (IN) | payer MEDICARE ==
[2023-02-24 09:42] LABS: #Basophils 0.1 10x3/uL (0.0-0.2); #Monocytes 0.6 10x3/uL (0.0-1.1); #Neutrophils 5.7 10x3/uL (1.5-8.4); %Basophils 0.8 % (0.0-2.0); %Eosinophils 0.5 % (0.0-6.0); %Lymphocytes 12.7 % (18.0-47.0); %Monocytes 8.2 % (0.0-10.0); Hematocrit 26.6 % (38.8-50.0); Hemoglobin 8.8 g/dL (13.5-17.5); Mean Corpuscular HGB CONC 33.1 g/dL (32.0-36.0); Mean Corpuscular Hemoglobin 29.5 pg (27.0-33.0); Mean Corpuscular Volume 89.3 fl (81.2-95.1); Mean Platelet Volume 11.2 fl (7.4-10.4); Platelet Count 138 10x3/uL (150-450); RBC Distribution Width 16.7 % (11.5-14.5); Red Blood Cell (RBC) Count 2.98 10x6/uL (4.32-5.72); White Blood Cell (WBC) Count 7.5 10x3/uL (3.5-10.5)
[2023-02-24 10:00] LABS: ALT (SGPT) 690 U/L (8-55); AST (SGOT) 691 U/L (5-34); Albumin 3.4 g/dL (3.5-5.0); Alkaline Phosphatase 150 U/L (40-110); Anion Gap 28 mmol/L (10-20); BUN (Urea Nitrogen) 122 mg/dL (8.4-25.7); Bilirubin, Total 1.9 mg/dL (0.2-1.2); Calc. Creatinine Clearance 0 mL/min (70-130); Calcium 10.1 mg/dL (7.8-10.44); Carbon Dioxide 18 mmol/L (22-29); Chloride 93 mmol/L (98-107); Estimated GFR 4; Globulin 3.4 g/dL (2.4-3.5); Glucose 111 mg/dL (70-105); Protein, Total 6.8 g/dL (6.0-8.3); Sodium 131 mmol/L (136-145)
[2023-02-24] MEDS ORDERED: Acetaminophen 500 MG TAB ONE (10:00)
[2023-02-24 10:06] LABS: Critical Call Chemistry ERS.CH3@1005
[2023-02-24] MEDS ORDERED: Calcium Gluc 4.6 MEQ/10 ML (100 MG/ML) ONE (10:21)
[2023-02-24] MEDS ORDERED: Albuterol 2.5 MG (3 mL) NEB ONE ×2 (10:21→11:35)
[2023-02-24] MEDS ORDERED: Dextrose 50% Abboject 50 ML SYRINGE ONE ×2 (10:22→11:35)
[2023-02-24] MEDS ORDERED: Insulin Regular 300 UNITS/3 ML VIAL ONE (10:22)
[2023-02-24] MEDS ORDERED: Morphine 4 MG/ML VIAL ONE (10:43)
[2023-02-24 11:30] LABS: INR-International Normal Ratio 1.6; PTT 27.7 sec (22.0-33.0); Prothrombin Time 17.5 sec (9.5-12.1)
[2023-02-24 11:34] LABS: Lipase 19 U/L (8-78); Magnesium 1.6 mg/dL (1.6-2.6)
[2023-02-24] MEDS ORDERED: Piperacillin/Tazobactam 4.5 GM VIAL ONE (11:34)
[2023-02-24] MEDS ORDERED: LOKELMA 10 GM PACKET PO SCH (11:45)
[2023-02-24 12:23] LABS: Critical Call Chemistry ERS.CH3@1222
[2023-02-24] MEDS ORDERED: Senokot S 8.6-50 MG TAB PO PRN (13:03)
[2023-02-24] MEDS ORDERED: Acetaminophen 325 MG TAB PO PRN (13:03)
[2023-02-24 13:06] LABS: Anion Gap 25 mmol/L (10-20); BUN (Urea Nitrogen) 124 mg/dL (8.4-25.7); Calc. Creatinine Clearance 0 mL/min (70-130); Calcium 9.8 mg/dL (7.8-10.44); Carbon Dioxide 19 mmol/L (22-29); Chloride 94 mmol/L (98-107); Estimated GFR 4; Glucose 73 mg/dL (70-105); Sodium 131 mmol/L (136-145)
[2023-02-24 13:18] LABS: Potassium 7.3 mmol/L (3.5-5.1)
[2023-02-24] MEDS ORDERED: Ondansetron PF 4 MG/2 ML Vial ONE (13:53)
[2023-02-24] MEDS ORDERED: Heparin 10,000 UNITS/ 10 ML VIAL FS PRN (14:07)
[2023-02-24] MEDS ORDERED: Carvedilol 6.25 MG TAB PO SCH ×2 (17:00→21:45)
[2023-02-24] MEDS ORDERED: HYDROcodone/Acetaminophen 5/325 mg Tablet PO SCH (17:00)
[2023-02-24] MEDS ORDERED: Famotidine 20 MG TAB PO SCH (21:00)
[2023-02-24] MEDS: Famotidine 20 MG TAB PO SCH (21:55)
[2023-02-24] MEDS ORDERED: Nicotine 7 MG PATCH TD SCH (22:15)
[2023-02-24] MEDS ORDERED: Sevelamer Carbonate 800 MG TAB PO SCH (22:15)
[2023-02-24] MEDS ORDERED: Piperacillin/Tazobactam 3.375 GM in Sodium Chloride 0.9% 100 ML IVPB SCH (23:30)
[2023-02-25 04:05] LABS: #Eosinphils 0.2 10x3/uL (0.0-0.5); #Monocytes 0.3 10x3/uL (0.0-1.1); #Neutrophils 4.4 10x3/uL (1.5-8.4); %Basophils 0.7 % (0.0-2.0); %Eosinophils 3.5 % (0.0-6.0); %Lymphocytes 8.7 % (18.0-47.0); %Monocytes 5.2 % (0.0-10.0); %Neutrophils 81.3 % (40.0-75.0); Hematocrit 28.1 % (38.8-50.0); Hemoglobin 8.9 g/dL (13.5-17.5); Mean Corpuscular HGB CONC 31.7 g/dL (32.0-36.0); Mean Corpuscular Volume 91.5 fl (81.2-95.1); Mean Platelet Volume 10.1 fl (7.4-10.4); Platelet Count 119 10x3/uL (150-450); Red Blood Cell (RBC) Count 3.07 10x6/uL (4.32-5.72); White Blood Cell (WBC) Count 5.4 10x3/uL (3.5-10.5)
[2023-02-25 04:11] LABS: ALT (SGPT) 602 U/L (8-55); AST (SGOT) 359 U/L (5-34); Albumin 2.9 g/dL (3.5-5.0); Alkaline Phosphatase 131 U/L (40-110); Anion Gap 17 mmol/L (10-20); BUN (Urea Nitrogen) 52 mg/dL (8.4-25.7); Bilirubin, Total 1.6 mg/dL (0.2-1.2); Calc. Creatinine Clearance 14 mL/min (70-130); Calcium 9.4 mg/dL (7.8-10.44); Carbon Dioxide 25 mmol/L (22-29); Chloride 98 mmol/L (98-107); Estimated GFR 9; Glucose 99 mg/dL (70-105); Potassium 5.1 mmol/L (3.5-5.1); Protein, Total 5.9 g/dL (6.0-8.3); Sodium 135 mmol/L (136-145)
[2023-02-25 04:31] LABS: Crenated RBC MODERATE= 6-15 cells (100X) (None Seen); Elliptocytes MODERATE= 6-15 cells (100X) (0-1/hpf); Hypochromia SLIGHT = 6-15 cells (100X) (0-5/hpf); Platelet Adequacy Comment Appears Decreased; Polychromasia SLIGHT = 2-3 cells (100X) (0-2/hpf)
[2023-02-25] MEDS ORDERED: Ondansetron ODT 4 MG TAB PO PRN (06:44)
[2023-02-25 06:57] VITALS: BMI 23.8
[2023-02-25 09:15] LABS: Phosphorus 7.1 mg/dL (2.3-4.7)
[2023-02-25] MEDS: Sevelamer Carbonate 800 MG TAB PO SCH ×3 (09:22→15:53)
[2023-02-25] MEDS: Carvedilol 6.25 MG TAB PO SCH ×2 (09:23→15:53)
[2023-02-25] MEDS: Aspirin 81 mg Enteric Coated Tablet PO SCH (09:23)
[2023-02-25] MEDS: Piperacillin/Tazobactam 3.375 GM in Sodium Chloride 0.9% 100 ML IVPB SCH (15:52)
[2023-02-25] MEDS: Famotidine 20 MG TAB PO SCH (21:28)
[2023-02-26] MEDS: Piperacillin/Tazobactam 3.375 GM in Sodium Chloride 0.9% 100 ML IVPB SCH ×2 (01:37→14:44)
[2023-02-26] MEDS ORDERED: Nicotine 7 MG PATCH TOP PRN (01:42)
[2023-02-26 03:46] LABS: #Basophils 0.1 10x3/uL (0.0-0.2); #Eosinphils 0.4 10x3/uL (0.0-0.5); #Monocytes 0.4 10x3/uL (0.0-1.1); #Neutrophils 3.3 10x3/uL (1.5-8.4); %Eosinophils 7.3 % (0.0-6.0); %Lymphocytes 18.2 % (18.0-47.0); %Monocytes 7.1 % (0.0-10.0); Hematocrit 25.8 % (38.8-50.0); Mean Corpuscular Hemoglobin 29.1 pg (27.0-33.0); Mean Corpuscular Volume 93.8 fl (81.2-95.1); Mean Platelet Volume 10.6 fl (7.4-10.4); Platelet Count 107 10x3/uL (150-450); RBC Distribution Width 16.8 % (11.5-14.5); Red Blood Cell (RBC) Count 2.75 10x6/uL (4.32-5.72); White Blood Cell (WBC) Count 4.9 10x3/uL (3.5-10.5)
[2023-02-26 04:15] LABS: Albumin 2.7 g/dL (3.5-5.0); Anion Gap 17 mmol/L (10-20); BUN (Urea Nitrogen) 22 mg/dL (8.4-25.7); BUN/Creatinine Ratio 5.18; Calc. Creatinine Clearance 23 mL/min (70-130); Calcium 8.1 mg/dL (7.8-10.44); Carbon Dioxide 26 mmol/L (22-29); Chloride 100 mmol/L (98-107); Estimated GFR 16; Glucose 87 mg/dL (70-105); Phosphorus 4.5 mg/dL (2.3-4.7); Potassium 4.1 mmol/L (3.5-5.1); Sodium 139 mmol/L (136-145)
[2023-02-26 08:07] VITALS: BP 136/83; TEMP 98
[2023-02-26] MEDS: Sevelamer Carbonate 800 MG TAB PO SCH ×2 (08:31→11:34)
[2023-02-26] MEDS: Carvedilol 6.25 MG TAB PO SCH (08:31)
[2023-02-26] MEDS: Aspirin 81 mg Enteric Coated Tablet PO SCH (08:31)
[2023-02-26 12:32] LABS: ALT (SGPT) 375 U/L (8-55); AST (SGOT) 156 U/L (5-34); Albumin 2.7 g/dL (3.5-5.0); Alkaline Phosphatase 101 U/L (40-110); Bilirubin, Direct 0.7 mg/dL (0.1-0.3); Bilirubin, Total 1.4 mg/dL (0.2-1.2); Protein, Total 5.6 g/dL (6.0-8.3)
[2023-02-26] MEDS ORDERED: LIDOCAINE TOP PRN (14:56)
[2023-02-26] MEDS ORDERED: Doxycycline 100 MG CAP PO SCH (15:00)
[2023-02-26] MEDS ORDERED: Amoxicillin/Potassium Clav 500 MG TAB PO SCH (15:00)
[2023-02-27] MEDS ORDERED: Amoxicillin/Potassium Clav 500 MG TAB PO SCH (09:00)
[2023-02-27] MEDS ORDERED: Doxycycline 100 MG CAP PO SCH (09:00)
== END 2023-02-26 16:01 | disposition home or self-care (01) | DRG 682 ==
LOC: CSHERS 08:17 → CSHERHOLD 13:01 → CSHTELE 16:41
PROVIDERS: ADMIT Internal Medicine; ATTEND Nurse Practitioner Family
PROC: 5A1D70Z Performance of Urinary Filtration, Intermittent, Less than 6 Hours Per Day (ICD-10-PCS; principal; 2023-02-24)
DX: I12.0 Hypertensive chronic kidney disease with stage 5 chronic kidney disease or end stage renal disease (principal); J18.9 Pneumonia, unspecified organism; N18.6 End stage renal disease; J90 Pleural effusion, not elsewhere classified; R17 Unspecified jaundice; E87.20 Acidosis, unspecified; R18.8 Other ascites; F41.9 Anxiety disorder, unspecified; F32.A Depression, unspecified; F17.210 Nicotine dependence, cigarettes, uncomplicated; E87.5 Hyperkalemia; E83.39 Other disorders of phosphorus metabolism; K76.1 Chronic passive congestion of liver; D63.1 Anemia in chronic kidney disease; Z99.2 Dependence on renal dialysis; Z91.199 Patient's noncompliance with other medical treatment and regimen due to unspecified reason; Z90.49 Acquired absence of other specified parts of digestive tract; Z98.890 Other specified postprocedural states; Z71.6 Tobacco abuse counseling
CPT/HCPCS: 36415; 36416; 71045; 76705; 80053; 80069; 82140; 82247; 83690; 83735; 83880; 84100; 85025; 85610; 85730; 90935; 93005; 94760; 96365; 96375; 96376; G0257; J0612; J1644; J1815; J2270; J2405; J2543; J3490; J7611; J7999; Q0162

== ENCOUNTER 2023-03-01 01:52 | Inpatient (IN) | payer MEDICARE ==
[2023-03-01] MEDS ORDERED: Aspirin 325 MG TAB ONE (02:24)
[2023-03-01 02:58] LABS: #Basophils 0.1 10x3/uL (0.0-0.2); #Eosinphils 0.4 10x3/uL (0.0-0.5); #Monocytes 0.4 10x3/uL (0.0-1.1); #Neutrophils 5.3 10x3/uL (1.5-8.4); %Basophils 1.2 % (0.0-2.0); %Eosinophils 5.3 % (0.0-6.0); %Lymphocytes 17.9 % (18.0-47.0); %Monocytes 5.5 % (0.0-10.0); %Neutrophils 69.8 % (40.0-75.0); Hematocrit 31.9 % (38.8-50.0); Hemoglobin 10.1 g/dL (13.5-17.5); Mean Corpuscular HGB CONC 31.7 g/dL (32.0-36.0); Mean Corpuscular Hemoglobin 29.7 pg (27.0-33.0); Mean Corpuscular Volume 93.8 fl (81.2-95.1); Mean Platelet Volume 10.4 fl (7.4-10.4); Platelet Count 133 10x3/uL (150-450); RBC Distribution Width 17.3 % (11.5-14.5); White Blood Cell (WBC) Count 7.6 10x3/uL (3.5-10.5)
[2023-03-01 03:00] LABS: ALT (SGPT) 240 U/L (8-55); AST (SGOT) 80 U/L (5-34); Albumin 3.8 g/dL (3.5-5.0); Alkaline Phosphatase 127 U/L (40-110); Anion Gap 19 mmol/L (10-20); BUN (Urea Nitrogen) 45 mg/dL (8.4-25.7); Bilirubin, Total 1.4 mg/dL (0.2-1.2); Calc. Creatinine Clearance 0 mL/min (70-130); Calcium 9.8 mg/dL (7.8-10.44); Carbon Dioxide 23 mmol/L (22-29); Chloride 97 mmol/L (98-107); Estimated GFR 9; Globulin 3.6 g/dL (2.4-3.5); Glucose 103 mg/dL (70-105); Magnesium 1.6 mg/dL (1.6-2.6); Protein, Total 7.4 g/dL (6.0-8.3); Sodium 133 mmol/L (136-145)
[2023-03-01 03:05] LABS: Critical Call Chemistry NUR.AEB @0301; Potassium 6.1 mmol/L (3.5-5.1)
[2023-03-01 03:06] LABS: Troponin I 0.125 ng/mL (< 0.028)
[2023-03-01] MEDS ORDERED: guaiFENesin/Codeine Phosphate 100 mg/10 mg 5 ml UD Cup ONE (03:16)
[2023-03-01] MEDS ORDERED: Acetaminophen 500 MG TAB ONE (04:47)
[2023-03-01] MEDS ORDERED: Communication Order-Pharmacy FS ONE (06:59)
[2023-03-01] MEDS ORDERED: Nitroglycerin 0.4 MG TAB (25 Tab Bottle) SL PRN (07:04)
[2023-03-01 07:57] LABS: Troponin I 0.104 ng/mL (< 0.028)
[2023-03-01] MEDS ORDERED: LevoFLOXacin 750 mg/D5W 750 MG in Premix 1 BAG IVPB SCH ×3 (08:00→23:15)
[2023-03-01] MEDS ORDERED: Nitroglycerin 2% Ointment 1 INCH/1 GM Packet ONE (08:05)
[2023-03-01] MEDS ORDERED: Aspirin Chewable 81 MG TAB ONE (08:05)
[2023-03-01] MEDS ORDERED: Cefepime 1 GM VIAL ONE (08:05)
[2023-03-01] MEDS ORDERED: LevoFLOXacin 750 mg/D5W 150 ml Premix Bag ONE (08:06)
[2023-03-01] MEDS ORDERED: Vancomycin Diaylsis Sliding Scale (Wt 71-99) FS SCH (08:15)
[2023-03-01] MEDS: Nitroglycerin 2% Ointment 1 INCH/1 GM Packet TOP SCH ×2 (08:25→17:04)
[2023-03-01] MEDS: Aspirin Chewable 81 MG TAB PO SCH (08:26)
[2023-03-01] MEDS: Heparin 5,000 UNITS/ML VIAL SC SCH ×3 (08:26→23:37)
[2023-03-01] MEDS ORDERED: VANCOMYCIN 2 GRAM/400 ML BAG 2 GM in Premix 1 BAG IVPB SCH (09:00)
[2023-03-01] MEDS ORDERED: Cefepime 1 GM in Sodium Chloride 0.9% 100 ML IVPB SCH (09:00)
[2023-03-01] MEDS ORDERED: Ipratropium/Albuterol 3 ML NEB NEB PRN (09:41)
[2023-03-01 10:55] LABS: Troponin I 0.117 ng/mL (< 0.028)
[2023-03-01] MEDS ORDERED: Lidocaine/Transparent Dressing 1 EACH KIT TP PRN (10:56)
[2023-03-01 12:12] VITALS: BMI 23.0
[2023-03-01] MEDS ORDERED: Heparin 10,000 UNITS/ 10 ML VIAL FS PRN (17:46)
[2023-03-01] MEDS: Nicotine 14 MG PATCH TOP SCH (23:10)
[2023-03-01] MEDS: Famotidine 20 MG TAB PO SCH (23:10)
[2023-03-02] MEDS: Nitroglycerin 2% Ointment 1 INCH/1 GM Packet TOP SCH ×2 (03:35→08:46)
[2023-03-02 05:07] LABS: ALT (SGPT) 153 U/L (8-55); AST (SGOT) 45 U/L (5-34); Albumin 3.3 g/dL (3.5-5.0); Alkaline Phosphatase 119 U/L (40-110); Anion Gap 13 mmol/L (10-20); BUN (Urea Nitrogen) 26 mg/dL (8.4-25.7); Bilirubin, Total 1.5 mg/dL (0.2-1.2); Calc. Creatinine Clearance 23 mL/min (70-130); Calcium 9.5 mg/dL (7.8-10.44); Carbon Dioxide 29 mmol/L (22-29); Chloride 97 mmol/L (98-107); Estimated GFR 16; Globulin 3.5 g/dL (2.4-3.5); Glucose 89 mg/dL (70-105); Magnesium 1.6 mg/dL (1.6-2.6); Phosphorus 4.3 mg/dL (2.3-4.7); Potassium 4.7 mmol/L (3.5-5.1); Protein, Total 6.8 g/dL (6.0-8.3); Sodium 134 mmol/L (136-145)
[2023-03-02 05:17] LABS: #Eosinphils 0.3 10x3/uL (0.0-0.5); #Monocytes 0.3 10x3/uL (0.0-1.1); %Basophils 0.7 % (0.0-2.0); %Eosinophils 5.5 % (0.0-6.0); %Lymphocytes 15.7 % (18.0-47.0); %Monocytes 5.7 % (0.0-10.0); Hemoglobin 9.2 g/dL (13.5-17.5); Mean Corpuscular HGB CONC 31.7 g/dL (32.0-36.0); Mean Corpuscular Hemoglobin 29.2 pg (27.0-33.0); Mean Corpuscular Volume 92.1 fl (81.2-95.1); Mean Platelet Volume 10.3 fl (7.4-10.4); Platelet Count 107 10x3/uL (150-450); RBC Distribution Width 17.3 % (11.5-14.5); Red Blood Cell (RBC) Count 3.15 10x6/uL (4.32-5.72); White Blood Cell (WBC) Count 5.6 10x3/uL (3.5-10.5)
[2023-03-02 06:19] LABS: Large Platelets SLIGHT (None Seen)
[2023-03-02 07:43] LABS: Vancomycin, Random 18.9 ug/mL (See Comment)
[2023-03-02] MEDS ORDERED: Carvedilol 6.25 MG TAB PO SCH (09:15)
[2023-03-02] MEDS: Acetaminophen 325 MG TAB PO PRN (09:33)
[2023-03-02] MEDS: guaiFENesin/Codeine Phosphate 100 mg/10 mg 5 ml UD Cup PO PRN (09:33)
[2023-03-02] MEDS: Aspirin Chewable 81 MG TAB PO SCH (09:34)
[2023-03-02] MEDS: Heparin 5,000 UNITS/ML VIAL SC SCH ×3 (10:07→21:10)
[2023-03-02] MEDS: Sevelamer Carbonate 800 MG TAB PO SCH ×2 (15:59→16:42)
[2023-03-02] MEDS: Carvedilol 6.25 MG TAB PO SCH (16:42)
[2023-03-02] MEDS ORDERED: Vancomycin HCl 750 MG in Sodium Chloride 0.9% 250 ML 250 ML IVPB SCH (17:00)
[2023-03-02] MEDS ORDERED: Cefepime 1 GM in Sodium Chloride 0.9% 100 ML IVPB SCH (17:00)
[2023-03-02] MEDS: Nicotine 14 MG PATCH TOP SCH (21:09)
[2023-03-02] MEDS: Famotidine 20 MG TAB PO SCH (21:09)
[2023-03-02] MEDS: Rosuvastatin 10 MG TAB PO SCH (21:10)
[2023-03-02] MEDS ORDERED: Lorazepam 2 MG/ML VIAL SLOW IVP SCH (22:15)
[2023-03-03] MEDS ORDERED: ALPRAZolam 1 MG TAB PO SCH ×2 (01:30→23:00)
[2023-03-03 03:55] LABS: #Basophils 0.1 10x3/uL (0.0-0.2); #Eosinphils 0.3 10x3/uL (0.0-0.5); #Monocytes 0.3 10x3/uL (0.0-1.1); %Basophils 0.9 % (0.0-2.0); %Eosinophils 5.1 % (0.0-6.0); %Lymphocytes 21.1 % (18.0-47.0); %Monocytes 5.1 % (0.0-10.0); %Neutrophils 67.5 % (40.0-75.0); Hematocrit 28.2 % (38.8-50.0); Hemoglobin 8.9 g/dL (13.5-17.5); Mean Corpuscular HGB CONC 31.6 g/dL (32.0-36.0); Mean Corpuscular Volume 94.9 fl (81.2-95.1); Mean Platelet Volume 9.9 fl (7.4-10.4); Platelet Count 120 10x3/uL (150-450); RBC Distribution Width 17.1 % (11.5-14.5); Red Blood Cell (RBC) Count 2.97 10x6/uL (4.32-5.72); White Blood Cell (WBC) Count 5.9 10x3/uL (3.5-10.5)
[2023-03-03 04:16] LABS: Anion Gap 10 mmol/L (10-20); BUN (Urea Nitrogen) 17 mg/dL (8.4-25.7); Calc. Creatinine Clearance 29 mL/min (70-130); Calcium 9.2 mg/dL (7.8-10.44); Carbon Dioxide 31 mmol/L (22-29); Chloride 97 mmol/L (98-107); Estimated GFR 22; Glucose 95 mg/dL (70-105); Potassium 4.2 mmol/L (3.5-5.1); Sodium 134 mmol/L (136-145)
[2023-03-03] MEDS: Sevelamer Carbonate 800 MG TAB PO SCH ×3 (08:25→17:35)
[2023-03-03] MEDS: Heparin 5,000 UNITS/ML VIAL SC SCH ×3 (08:25→20:37)
[2023-03-03] MEDS: Carvedilol 6.25 MG TAB PO SCH ×2 (08:25→17:19)
[2023-03-03] MEDS: Aspirin Chewable 81 MG TAB PO SCH (08:25)
[2023-03-03] MEDS: LevoFLOXacin 500 mg/D5W 500 MG in Premix 1 BAG IVPB SCH (17:29)
[2023-03-03] MEDS: Nicotine 14 MG PATCH TOP SCH (17:35)
[2023-03-03] MEDS: Famotidine 20 MG TAB PO SCH (20:35)
[2023-03-03] MEDS: Rosuvastatin 10 MG TAB PO SCH (20:36)
[2023-03-03] MEDS: Lorazepam 0.5 MG TAB PO PRN (20:37)
[2023-03-03] MEDS: guaiFENesin/Codeine Phosphate 100 mg/10 mg 5 ml UD Cup PO PRN (20:37)
[2023-03-04 04:33] LABS: Anion Gap 12 mmol/L (10-20); BUN (Urea Nitrogen) 14 mg/dL (8.4-25.7); Calc. Creatinine Clearance 31 mL/min (70-130); Calcium 9.2 mg/dL (7.8-10.44); Carbon Dioxide 30 mmol/L (22-29); Chloride 96 mmol/L (98-107); Estimated GFR 24; Glucose 71 mg/dL (70-105); Magnesium 1.6 mg/dL (1.6-2.6); Potassium 3.9 mmol/L (3.5-5.1); Sodium 134 mmol/L (136-145)
[2023-03-04] MEDS: Carvedilol 6.25 MG TAB PO SCH ×2 (08:25→16:19)
[2023-03-04] MEDS: Aspirin Chewable 81 MG TAB PO SCH (08:28)
[2023-03-04] MEDS: Sevelamer Carbonate 800 MG TAB PO SCH ×3 (08:29→16:12)
[2023-03-04] MEDS: Heparin 5,000 UNITS/ML VIAL SC SCH ×3 (08:29→20:27)
[2023-03-04] MEDS: Acetaminophen 325 MG TAB PO PRN (13:46)
[2023-03-04] MEDS: Nicotine 14 MG PATCH TOP SCH (16:13)
[2023-03-04] MEDS: Rosuvastatin 10 MG TAB PO SCH (20:26)
[2023-03-04] MEDS: Famotidine 20 MG TAB PO SCH (20:26)
[2023-03-04] MEDS ORDERED: ALPRAZolam 1 MG TAB PO SCH (23:30)
[2023-03-05 03:30] LABS: #Eosinphils 0.3 10x3/uL (0.0-0.5); #Monocytes 0.4 10x3/uL (0.0-1.1); %Basophils 0.8 % (0.0-2.0); %Eosinophils 6.4 % (0.0-6.0); %Monocytes 7.6 % (0.0-10.0); %Neutrophils 59.8 % (40.0-75.0); Hematocrit 28.7 % (38.8-50.0); Hemoglobin 9.2 g/dL (13.5-17.5); Mean Corpuscular HGB CONC 32.1 g/dL (32.0-36.0); Mean Corpuscular Hemoglobin 30.4 pg (27.0-33.0); Mean Corpuscular Volume 94.7 fl (81.2-95.1); Mean Platelet Volume 9.8 fl (7.4-10.4); Platelet Count 111 10x3/uL (150-450); RBC Distribution Width 16.6 % (11.5-14.5); Red Blood Cell (RBC) Count 3.03 10x6/uL (4.32-5.72)
[2023-03-05 03:53] LABS: Elliptocytes SLIGHT = 2-5 cells (100X) (0-1/hpf); Large Platelets SLIGHT (None Seen); Platelet Adequacy Comment Appears Decreased
[2023-03-05] MEDS: Lorazepam 0.5 MG TAB PO PRN (04:09)
[2023-03-05 04:10] LABS: Anion Gap 10 mmol/L (10-20); BUN (Urea Nitrogen) 13 mg/dL (8.4-25.7); Calc. Creatinine Clearance 34 mL/min (70-130); Carbon Dioxide 31 mmol/L (22-29); Chloride 94 mmol/L (98-107); Estimated GFR 26; Glucose 82 mg/dL (70-105); Potassium 3.7 mmol/L (3.5-5.1); Sodium 131 mmol/L (136-145)
[2023-03-05] MEDS: Aspirin Chewable 81 MG TAB PO SCH (09:45)
[2023-03-05] MEDS: Heparin 5,000 UNITS/ML VIAL SC SCH ×3 (09:45→21:00)
[2023-03-05] MEDS: Carvedilol 6.25 MG TAB PO SCH ×2 (09:45→20:39)
[2023-03-05] MEDS: Sevelamer Carbonate 800 MG TAB PO SCH ×3 (09:45→19:12)
[2023-03-05] MEDS: Nicotine 14 MG PATCH TOP SCH (20:37)
[2023-03-05] MEDS: Rosuvastatin 10 MG TAB PO SCH (20:37)
[2023-03-05] MEDS: Famotidine 20 MG TAB PO SCH (20:37)
[2023-03-05] MEDS: LevoFLOXacin 500 mg/D5W 500 MG in Premix 1 BAG IVPB SCH (20:38)
[2023-03-06] MEDS: Heparin 5,000 UNITS/ML VIAL SC SCH ×3 (10:08→22:07)
[2023-03-06] MEDS: Aspirin Chewable 81 MG TAB PO SCH (10:10)
[2023-03-06] MEDS: Sevelamer Carbonate 800 MG TAB PO SCH ×3 (10:11→16:19)
[2023-03-06] MEDS: Carvedilol 6.25 MG TAB PO SCH ×2 (10:32→16:11)
[2023-03-06] MEDS ORDERED: Nicotine 14 MG PATCH TD PRN (16:39)
[2023-03-06] MEDS: Famotidine 20 MG TAB PO SCH (22:06)
[2023-03-06] MEDS: Rosuvastatin 10 MG TAB PO SCH (22:07)
[2023-03-07] MEDS: Lorazepam 0.5 MG TAB PO PRN (03:43)
[2023-03-07 04:10] LABS: #Basophils 0.1 10x3/uL (0.0-0.2); #Eosinphils 0.2 10x3/uL (0.0-0.5); #Monocytes 0.4 10x3/uL (0.0-1.1); #Neutrophils 3.3 10x3/uL (1.5-8.4); %Basophils 1.2 % (0.0-2.0); %Eosinophils 4.4 % (0.0-6.0); %Lymphocytes 21.3 % (18.0-47.0); %Monocytes 7.8 % (0.0-10.0); %Neutrophils 65.1 % (40.0-75.0); Hematocrit 31.8 % (38.8-50.0); Hemoglobin 9.8 g/dL (13.5-17.5); Mean Corpuscular HGB CONC 30.8 g/dL (32.0-36.0); Mean Corpuscular Volume 94.1 fl (81.2-95.1); Mean Platelet Volume 9.5 fl (7.4-10.4); Platelet Count 124 10x3/uL (150-450); RBC Distribution Width 16.7 % (11.5-14.5); Red Blood Cell (RBC) Count 3.38 10x6/uL (4.32-5.72)
[2023-03-07 04:29] LABS: Anion Gap 11 mmol/L (10-20); BUN (Urea Nitrogen) 9 mg/dL (8.4-25.7); Calc. Creatinine Clearance 39 mL/min (70-130); Calcium 9.5 mg/dL (7.8-10.44); Carbon Dioxide 33 mmol/L (22-29); Chloride 98 mmol/L (98-107); Estimated GFR 31; Glucose 98 mg/dL (70-105); Sodium 138 mmol/L (136-145)
[2023-03-07 08:50] VITALS: BP 134/82; TEMP 97.9
[2023-03-07] MEDS ORDERED: Heparin 10,000 UNITS/ 10 ML VIAL FS PRN (09:00)
[2023-03-07] MEDS: Heparin 5,000 UNITS/ML VIAL SC SCH ×2 (09:09→15:59)
[2023-03-07] MEDS: Sevelamer Carbonate 800 MG TAB PO SCH ×2 (09:09→11:16)
[2023-03-07] MEDS: Aspirin Chewable 81 MG TAB PO SCH (09:44)
[2023-03-07] MEDS: Carvedilol 6.25 MG TAB PO SCH (09:45)
[2023-03-07 13:39] LABS: Hep B Surface AG-Rflx Sendout Negative (Negative); Hepatitis B Core Total Negative (Negative); Hepatitis B Surface AB-Sendout Reactive (.)
== END 2023-03-07 16:31 | disposition home or self-care (01) | DRG 291 ==
LOC: CSHERS 01:52 → CSHERHOLD 05:36 → OBSVTOIN 06:59 → CSHTELE 12:32
PROVIDERS: ADMIT Family Medicine; ATTEND Internal Medicine
PROC: 5A1D70Z Performance of Urinary Filtration, Intermittent, Less than 6 Hours Per Day (ICD-10-PCS; principal; 2023-03-01)
DX: I13.2 Hypertensive heart and chronic kidney disease with heart failure and with stage 5 chronic kidney disease, or end stage renal disease (principal); I50.23 Acute on chronic systolic (congestive) heart failure; J18.9 Pneumonia, unspecified organism; N18.6 End stage renal disease; Q61.3 Polycystic kidney, unspecified; E78.5 Hyperlipidemia, unspecified; I25.10 Atherosclerotic heart disease of native coronary artery without angina pectoris; E11.22 Type 2 diabetes mellitus with diabetic chronic kidney disease; F17.210 Nicotine dependence, cigarettes, uncomplicated; R07.9 Chest pain, unspecified; F32.A Depression, unspecified; I35.0 Nonrheumatic aortic (valve) stenosis; D63.1 Anemia in chronic kidney disease; F41.9 Anxiety disorder, unspecified; G47.33 Obstructive sleep apnea (adult) (pediatric); Z79.899 Other long term (current) drug therapy; Z99.2 Dependence on renal dialysis; Z90.49 Acquired absence of other specified parts of digestive tract; Z90.5 Acquired absence of kidney; Z98.890 Other specified postprocedural states; Z91.199 Patient's noncompliance with other medical treatment and regimen due to unspecified reason; E87.5 Hyperkalemia
CPT/HCPCS: 36415; 71045; 80048; 80053; 80202; 83735; 83880; 84100; 84145; 84484; 85025; 86704; 86706; 87040; 87081; 87340; 90935; 93005; 93306; 97139; G0257; J0692; J1644; J1956; J2060; J3370; J3490; J7050

== ENCOUNTER 2023-03-22 07:51 | Emergency (ER) | payer MEDICARE ==
[2023-03-22] MEDS ORDERED: Acetaminophen 500 MG TAB ONE (09:08)
[2023-03-22 09:19] LABS: #Basophils 0.1 10x3/uL (0.0-0.2); #Eosinphils 0.5 10x3/uL (0.0-0.5); #Monocytes 0.4 10x3/uL (0.0-1.1); #Neutrophils 5.7 10x3/uL (1.5-8.4); %Basophils 0.9 % (0.0-2.0); %Eosinophils 6.7 % (0.0-6.0); %Monocytes 4.4 % (0.0-10.0); %Neutrophils 72.7 % (40.0-75.0); Hematocrit 27.5 % (38.8-50.0); Hemoglobin 9.1 g/dL (13.5-17.5); Mean Corpuscular HGB CONC 33.1 g/dL (32.0-36.0); Mean Corpuscular Hemoglobin 30.6 pg (27.0-33.0); Mean Corpuscular Volume 92.6 fl (81.2-95.1); Mean Platelet Volume 9.9 fl (7.4-10.4); Platelet Count 158 10x3/uL (150-450); RBC Distribution Width 15.2 % (11.5-14.5); Red Blood Cell (RBC) Count 2.97 10x6/uL (4.32-5.72); White Blood Cell (WBC) Count 7.9 10x3/uL (3.5-10.5)
[2023-03-22 09:46] LABS: ALT (SGPT) Less than 7 U/L (8-55); AST (SGOT) 11 U/L (5-34); Albumin 3.8 g/dL (3.5-5.0); Alkaline Phosphatase 159 U/L (40-110); Anion Gap 19 mmol/L (10-20); BUN (Urea Nitrogen) 100 mg/dL (8.4-25.7); Bilirubin, Total 1.2 mg/dL (0.2-1.2); Calc. Creatinine Clearance 0 mL/min (70-130); Calcium 9.5 mg/dL (7.8-10.44); Carbon Dioxide 22 mmol/L (22-29); Chloride 99 mmol/L (98-107); Estimated GFR 5; Globulin 2.9 g/dL (2.4-3.5); Glucose 98 mg/dL (70-105); Potassium 5.9 mmol/L (3.5-5.1); Protein, Total 6.7 g/dL (6.0-8.3); Sodium 134 mmol/L (136-145)
[2023-03-22 09:48] LABS: Troponin I 0.082 ng/mL (< 0.028)
== END 2023-03-22 18:27 | disposition home or self-care (01) ==
LOC: CSHERS 07:51
DX: E87.70 Fluid overload, unspecified (principal); E87.5 Hyperkalemia; I12.0 Hypertensive chronic kidney disease with stage 5 chronic kidney disease or end stage renal disease; E11.22 Type 2 diabetes mellitus with diabetic chronic kidney disease; N18.6 End stage renal disease; F17.210 Nicotine dependence, cigarettes, uncomplicated; E78.5 Hyperlipidemia, unspecified; Z55.6 Problems related to health literacy; Z99.2 Dependence on renal dialysis; Z79.82 Long term (current) use of aspirin; Z79.899 Other long term (current) drug therapy
CPT/HCPCS: 71045; 80053; 83880; 84484; 85025; 90935; 93005; G0257

== ENCOUNTER 2023-03-25 20:50 | Emergency (ER) | payer MEDICARE ==
[2023-03-25 22:48] LABS: #Basophils 0.1 10x3/uL (0.0-0.2); #Eosinphils 0.7 10x3/uL (0.0-0.5); #Monocytes 0.3 10x3/uL (0.0-1.1); #Neutrophils 5.5 10x3/uL (1.5-8.4); %Basophils 0.9 % (0.0-2.0); %Eosinophils 9.1 % (0.0-6.0); %Lymphocytes 14.9 % (18.0-47.0); %Monocytes 3.7 % (0.0-10.0); %Neutrophils 71.1 % (40.0-75.0); Hematocrit 27.9 % (38.8-50.0); Hemoglobin 9.4 g/dL (13.5-17.5); Mean Corpuscular HGB CONC 33.7 g/dL (32.0-36.0); Mean Corpuscular Hemoglobin 30.1 pg (27.0-33.0); Mean Corpuscular Volume 89.4 fl (81.2-95.1); Mean Platelet Volume 9.9 fl (7.4-10.4); Platelet Count 145 10x3/uL (150-450); Red Blood Cell (RBC) Count 3.12 10x6/uL (4.32-5.72); White Blood Cell (WBC) Count 7.8 10x3/uL (3.5-10.5)
[2023-03-25 23:07] LABS: ALT (SGPT) 7 U/L (8-55); AST (SGOT) 11 U/L (5-34); Albumin 3.9 g/dL (3.5-5.0); Alkaline Phosphatase 137 U/L (40-110); Anion Gap 22 mmol/L (10-20); BUN (Urea Nitrogen) 82 mg/dL (8.4-25.7); Bilirubin, Total 1.5 mg/dL (0.2-1.2); Calc. Creatinine Clearance 0 mL/min (70-130); Calcium 9.8 mg/dL (7.8-10.44); Carbon Dioxide 22 mmol/L (22-29); Chloride 97 mmol/L (98-107); Estimated GFR 5; Globulin 3.3 g/dL (2.4-3.5); Glucose 99 mg/dL (70-105); Protein, Total 7.2 g/dL (6.0-8.3); Sodium 135 mmol/L (136-145)
[2023-03-25 23:13] LABS: Potassium 6.2 mmol/L (3.5-5.1); Troponin I 0.093 ng/mL (< 0.028)
[2023-03-25] MEDS ORDERED: Albuterol 2.5 MG (3 mL) NEB ONE (23:34)
[2023-03-25] MEDS ORDERED: Insulin Regular 300 UNITS/3 ML VIAL ONE (23:36)
[2023-03-25] MEDS ORDERED: Dextrose 50% Abboject 50 ML SYRINGE SLOW IVP SCH (23:45)
[2023-03-25] MEDS ORDERED: Calcium Gluc 4.6 MEQ/10 ML (100 MG/ML) SLOW IVP SCH (23:45)
[2023-03-26] MEDS ORDERED: Calcium Gluc 4.6 MEQ/10 ML (100 MG/ML) ONE (00:17)
== END 2023-03-26 08:01 | disposition home or self-care (01) ==
LOC: CSHERS 20:50
DX: E87.70 Fluid overload, unspecified (principal); E87.5 Hyperkalemia; F17.210 Nicotine dependence, cigarettes, uncomplicated; K26.9 Duodenal ulcer, unspecified as acute or chronic, without hemorrhage or perforation; Q61.2 Polycystic kidney, adult type; I12.0 Hypertensive chronic kidney disease with stage 5 chronic kidney disease or end stage renal disease; E11.22 Type 2 diabetes mellitus with diabetic chronic kidney disease; N18.6 End stage renal disease; Z99.2 Dependence on renal dialysis; Z59.7 Insufficient social insurance and welfare support
CPT/HCPCS: 36415; 71045; 80053; 83880; 84484; 85025; 90935; 93005; 93010; 94644; 96374; 96375; G0257; J0612; J1815; J7611

== ENCOUNTER 2023-03-28 07:41 | Emergency (ER) | payer MEDICARE, SELFPAY ==
[2023-03-28 08:20] LABS: #Basophils 0.1 10x3/uL (0.0-0.2); #Eosinphils 0.8 10x3/uL (0.0-0.5); #Monocytes 0.2 10x3/uL (0.0-1.1); #Neutrophils 5.5 10x3/uL (1.5-8.4); %Basophils 0.9 % (0.0-2.0); %Eosinophils 9.5 % (0.0-6.0); %Lymphocytes 17.2 % (18.0-47.0); %Monocytes 2.9 % (0.0-10.0); %Neutrophils 69.2 % (40.0-75.0); Hematocrit 27.5 % (38.8-50.0); Hemoglobin 9.1 g/dL (13.5-17.5); Mean Corpuscular HGB CONC 33.1 g/dL (32.0-36.0); Mean Corpuscular Hemoglobin 30.4 pg (27.0-33.0); Mean Platelet Volume 9.8 fl (7.4-10.4); Platelet Count 125 10x3/uL (150-450); RBC Distribution Width 14.8 % (11.5-14.5); Red Blood Cell (RBC) Count 2.99 10x6/uL (4.32-5.72)
[2023-03-28 08:40] LABS: INR-International Normal Ratio 1.1; PTT 26.5 sec (22.0-33.0); Prothrombin Time 11.4 sec (9.5-12.1)
[2023-03-28 08:55] LABS: ALT (SGPT) Less than 7 U/L (8-55); AST (SGOT) 10 U/L (5-34); Albumin 3.7 g/dL (3.5-5.0); Alkaline Phosphatase 136 U/L (40-110); Anion Gap 19 mmol/L (10-20); BUN (Urea Nitrogen) 57 mg/dL (8.4-25.7); Bilirubin, Total 1.5 mg/dL (0.2-1.2); Calc. Creatinine Clearance 0 mL/min (70-130); Calcium 9.6 mg/dL (7.8-10.44); Carbon Dioxide 26 mmol/L (22-29); Chloride 97 mmol/L (98-107); Estimated GFR 7; Globulin 2.9 g/dL (2.4-3.5); Glucose 103 mg/dL (70-105); Magnesium 1.5 mg/dL (1.6-2.6); Potassium 5.5 mmol/L (3.5-5.1); Protein, Total 6.6 g/dL (6.0-8.3); Sodium 136 mmol/L (136-145); Troponin I 0.103 ng/mL (< 0.028)
[2023-03-28] MEDS ORDERED: Heparin 10,000 UNITS/ 10 ML VIAL SLOW IVP PRN (12:28)
== END 2023-03-28 16:25 | disposition home or self-care (01) ==
LOC: CSHERS 07:41
DX: I12.0 Hypertensive chronic kidney disease with stage 5 chronic kidney disease or end stage renal disease (principal); E11.22 Type 2 diabetes mellitus with diabetic chronic kidney disease; N18.6 End stage renal disease; R06.02 Shortness of breath; F17.210 Nicotine dependence, cigarettes, uncomplicated; Z99.2 Dependence on renal dialysis
CPT/HCPCS: 36415; 71045; 80053; 83735; 83880; 84484; 85025; 85610; 85730; 90935; 93005; G0257; J1644

== ENCOUNTER 2023-03-31 07:13 | Emergency (ER) | payer SELFPAY ==
[2023-03-31 07:42] LABS: #Basophils 0.1 10x3/uL (0.0-0.2); #Monocytes 0.3 10x3/uL (0.0-1.1); #Neutrophils 6.8 10x3/uL (1.5-8.4); %Eosinophils 9.8 % (0.0-6.0); %Lymphocytes 16.7 % (18.0-47.0); %Monocytes 3.1 % (0.0-10.0); %Neutrophils 69.1 % (40.0-75.0); Hematocrit 27.5 % (38.8-50.0); Hemoglobin 9.3 g/dL (13.5-17.5); Mean Corpuscular HGB CONC 33.8 g/dL (32.0-36.0); Mean Corpuscular Hemoglobin 30.9 pg (27.0-33.0); Mean Corpuscular Volume 91.4 fl (81.2-95.1); Mean Platelet Volume 9.7 fl (7.4-10.4); Platelet Count 140 10x3/uL (150-450); RBC Distribution Width 14.8 % (11.5-14.5); Red Blood Cell (RBC) Count 3.01 10x6/uL (4.32-5.72); White Blood Cell (WBC) Count 9.8 10x3/uL (3.5-10.5)
[2023-03-31 08:00] LABS: ALT (SGPT) 7 U/L (8-55); AST (SGOT) 11 U/L (5-34); Albumin 3.9 g/dL (3.5-5.0); Alkaline Phosphatase 133 U/L (40-110); Anion Gap 21 mmol/L (10-20); BUN (Urea Nitrogen) 65 mg/dL (8.4-25.7); Bilirubin, Total 1.7 mg/dL (0.2-1.2); Calc. Creatinine Clearance 0 mL/min (70-130); Calcium 10.2 mg/dL (7.8-10.44); Carbon Dioxide 23 mmol/L (22-29); Chloride 96 mmol/L (98-107); Estimated GFR 6; Globulin 3.7 g/dL (2.4-3.5); Glucose 121 mg/dL (70-105); Potassium 5.5 mmol/L (3.5-5.1); Protein, Total 7.6 g/dL (6.0-8.3); Sodium 134 mmol/L (136-145)
[2023-03-31] MEDS ORDERED: Heparin 10,000 UNITS/ 10 ML VIAL FS PRN (11:18)
[2023-03-31] MEDS ORDERED: Epoetin (ESRD) 10,000 UNITS/ML VIAL SC SCH (11:30)
[2023-03-31] MEDS ORDERED: EPOETIN ALFA-EPBX (ESRD) 4,000 UNITS/ML VIAL SC SCH (11:30)
== END 2023-03-31 15:58 | disposition home or self-care (01) ==
LOC: CSHERS 07:13
DX: E87.5 Hyperkalemia (principal); E11.22 Type 2 diabetes mellitus with diabetic chronic kidney disease; N18.6 End stage renal disease; I12.0 Hypertensive chronic kidney disease with stage 5 chronic kidney disease or end stage renal disease; E78.5 Hyperlipidemia, unspecified; F17.210 Nicotine dependence, cigarettes, uncomplicated; Z79.82 Long term (current) use of aspirin; Z79.899 Other long term (current) drug therapy
CPT/HCPCS: 36415; 71045; 80053; 85025; 90935; 93005; G0257; J1644; Q4081; Q5105

== ENCOUNTER 2023-04-03 15:03 | Observation (INO) | payer MEDICARE, SELFPAY ==
[2023-04-03 17:16] LABS: #Basophils 0.1 10x3/uL (0.0-0.2); #Eosinphils 0.7 10x3/uL (0.0-0.5); #Monocytes 0.4 10x3/uL (0.0-1.1); #Neutrophils 5.9 10x3/uL (1.5-8.4); %Basophils 0.8 % (0.0-2.0); %Eosinophils 8.2 % (0.0-6.0); %Lymphocytes 16.7 % (18.0-47.0); %Monocytes 4.4 % (0.0-10.0); %Neutrophils 69.7 % (40.0-75.0); Hematocrit 27.9 % (38.8-50.0); Hemoglobin 9.2 g/dL (13.5-17.5); Mean Corpuscular Hemoglobin 29.8 pg (27.0-33.0); Mean Corpuscular Volume 90.3 fl (81.2-95.1); Platelet Count 133 10x3/uL (150-450); Red Blood Cell (RBC) Count 3.09 10x6/uL (4.32-5.72); White Blood Cell (WBC) Count 8.4 10x3/uL (3.5-10.5)
[2023-04-03 17:25] LABS: Phosphorus 5.7 mg/dL (2.3-4.7)
[2023-04-03 17:27] LABS: ALT (SGPT) Less than 7 U/L (8-55); AST (SGOT) 10 U/L (5-34); Alkaline Phosphatase 151 U/L (40-110); Anion Gap 20 mmol/L (10-20); BUN (Urea Nitrogen) 69 mg/dL (8.4-25.7); Bilirubin, Total 1.3 mg/dL (0.2-1.2); Calc. Creatinine Clearance 0 mL/min (70-130); Calcium 10.3 mg/dL (7.8-10.44); Carbon Dioxide 24 mmol/L (22-29); Chloride 97 mmol/L (98-107); Estimated GFR 6; Globulin 3.6 g/dL (2.4-3.5); Glucose 91 mg/dL (70-105); Magnesium 1.8 mg/dL (1.6-2.6); Potassium 5.7 mmol/L (3.5-5.1); Protein, Total 7.6 g/dL (6.0-8.3); Sodium 135 mmol/L (136-145)
[2023-04-03] MEDS ORDERED: Artificial Tear Sol 15 ML BOT EA EYE PRN (19:30)
[2023-04-03] MEDS ORDERED: Acetaminophen 650 MG Suppository PR PRN (19:30)
[2023-04-03] MEDS ORDERED: Moisturizing Cream (Eucerin) 113 GM JAR TOP PRN (19:30)
[2023-04-03] MEDS ORDERED: Sodium Chloride 0.65% Nasal 44 ML BOT EA NARE PRN (19:30)
[2023-04-03] MEDS ORDERED: Ondansetron ODT 4 MG TAB PO PRN (19:30)
[2023-04-03] MEDS ORDERED: Acetaminophen 325 MG TAB PO PRN (19:30)
[2023-04-03 20:14] LABS: HBSAg Index 0.29 S/CO (0-0.99); Hep B Surf Ag Non-Reactive S/CO (NonReactive)
[2023-04-03] MEDS ORDERED: Heparin 10,000 UNITS/ 10 ML VIAL SLOW IVP PRN (20:59)
[2023-04-03] MEDS ORDERED: Famotidine 20 MG TAB ONE (21:00)
[2023-04-03] MEDS: Famotidine 20 MG TAB PO SCH (21:03)
[2023-04-03] MEDS: Nicotine 21 MG PATCH TOP SCH (21:33)
[2023-04-04 00:49] LABS: Hep B Core Total Ab Non-Reactive (NonReactive); Hep B Core Total Index 0.09 S/CO (0-0.79); Hep C IgG Ab Non-Reactive S/CO (NonReactive); Hep C Index 0.16 S/CO (0-0.79)
[2023-04-04 00:57] LABS: HBSAB Concentration 27.85 mIU/mL; Hep B Surf AB Reactive (NonReactive)
[2023-04-04 06:26] LABS: #Basophils 0.1 10x3/uL (0.0-0.2); #Eosinphils 0.5 10x3/uL (0.0-0.5); #Monocytes 0.3 10x3/uL (0.0-1.1); #Neutrophils 4.5 10x3/uL (1.5-8.4); %Basophils 1.1 % (0.0-2.0); %Eosinophils 7.7 % (0.0-6.0); %Lymphocytes 15.3 % (18.0-47.0); %Monocytes 5.3 % (0.0-10.0); %Neutrophils 70.4 % (40.0-75.0); Hematocrit 26.3 % (38.8-50.0); Hemoglobin 8.6 g/dL (13.5-17.5); Mean Corpuscular HGB CONC 32.7 g/dL (32.0-36.0); Mean Corpuscular Hemoglobin 29.6 pg (27.0-33.0); Mean Corpuscular Volume 90.4 fl (81.2-95.1); Platelet Count 122 10x3/uL (150-450); Red Blood Cell (RBC) Count 2.91 10x6/uL (4.32-5.72); White Blood Cell (WBC) Count 6.4 10x3/uL (3.5-10.5)
[2023-04-04 06:29] LABS: Anion Gap 18 mmol/L (10-20); BUN (Urea Nitrogen) 28 mg/dL (8.4-25.7); Calc. Creatinine Clearance 17 mL/min (70-130); Calcium 9.8 mg/dL (7.8-10.44); Carbon Dioxide 26 mmol/L (22-29); Chloride 97 mmol/L (98-107); Estimated GFR 11; Glucose 104 mg/dL (70-105); Potassium 4.4 mmol/L (3.5-5.1); Sodium 137 mmol/L (136-145)
[2023-04-04] MEDS: EPOETIN ALFA-EPBX (ESRD) 3,000 UNITS/ML VIAL SC SCH ×2 (06:57→15:53)
[2023-04-04] MEDS: EPOETIN ALFA-EPBX (ESRD) 4,000 UNITS/ML VIAL SC SCH (06:57)
[2023-04-04] MEDS: EPOETIN ALFA-EPBX (ESRD) 2,000 UNITS/ML VIAL SC SCH ×2 (06:58→15:53)
[2023-04-04] MEDS: Tuberculin PPD 0.1 ML VIAL I-DERMAL SCH (15:20)
[2023-04-05 04:12] LABS: #Basophils 0.1 10x3/uL (0.0-0.2); #Eosinphils 0.5 10x3/uL (0.0-0.5); #Monocytes 0.4 10x3/uL (0.0-1.1); #Neutrophils 4.1 10x3/uL (1.5-8.4); %Basophils 0.8 % (0.0-2.0); %Eosinophils 8.2 % (0.0-6.0); %Lymphocytes 18.5 % (18.0-47.0); %Monocytes 6.5 % (0.0-10.0); %Neutrophils 65.7 % (40.0-75.0); Hematocrit 31.2 % (38.8-50.0); Hemoglobin 9.9 g/dL (13.5-17.5); Mean Corpuscular HGB CONC 31.7 g/dL (32.0-36.0); Mean Corpuscular Hemoglobin 29.6 pg (27.0-33.0); Mean Corpuscular Volume 93.4 fl (81.2-95.1); Mean Platelet Volume 9.6 fl (7.4-10.4); Platelet Count 150 10x3/uL (150-450); RBC Distribution Width 15.1 % (11.5-14.5); Red Blood Cell (RBC) Count 3.34 10x6/uL (4.32-5.72); White Blood Cell (WBC) Count 6.3 10x3/uL (3.5-10.5)
[2023-04-05 04:25] LABS: Anion Gap 13 mmol/L (10-20); BUN (Urea Nitrogen) 19 mg/dL (8.4-25.7); Calc. Creatinine Clearance 21 mL/min (70-130); Calcium 9.7 mg/dL (7.8-10.44); Carbon Dioxide 32 mmol/L (22-29); Chloride 94 mmol/L (98-107); Estimated GFR 14; Glucose 100 mg/dL (70-105); Potassium 4.7 mmol/L (3.5-5.1); Sodium 134 mmol/L (136-145)
[2023-04-05 08:38] VITALS: TEMP 98
[2023-04-05 10:43] VITALS: BMI 23.0
[2023-04-05 12:02] VITALS: BP 113/74
[2023-04-05] MEDS: Aspirin 81 mg Enteric Coated Tablet PO SCH (15:09)
[2023-04-06] MEDS ORDERED: READ PPD TEST SITE PO SCH (09:00)
[2023-04-07] MEDS ORDERED: EPOETIN ALFA-EPBX (ESRD) 3,000 UNITS/ML VIAL SC SCH (09:00)
[2023-04-07] MEDS ORDERED: EPOETIN ALFA-EPBX (ESRD) 2,000 UNITS/ML VIAL SC SCH (09:00)
== END 2023-04-05 15:30 | disposition home or self-care (01) ==
LOC: CSHERS 15:03 → CSHERHOLD 18:54 → CSHTELE 04-04 00:21
PROVIDERS: ADMIT Family Medicine; ATTEND Family Medicine
DX: E87.70 Fluid overload, unspecified (principal); E11.22 Type 2 diabetes mellitus with diabetic chronic kidney disease; I13.2 Hypertensive heart and chronic kidney disease with heart failure and with stage 5 chronic kidney disease, or end stage renal disease; I50.20 Unspecified systolic (congestive) heart failure; N18.6 End stage renal disease; Q61.3 Polycystic kidney, unspecified; G93.49 Other encephalopathy; E78.5 Hyperlipidemia, unspecified; I25.10 Atherosclerotic heart disease of native coronary artery without angina pectoris; R19.7 Diarrhea, unspecified; Z90.49 Acquired absence of other specified parts of digestive tract; Z87.891 Personal history of nicotine dependence; Z99.2 Dependence on renal dialysis
CPT/HCPCS: 80048 ×2; 80053; 83735; 83880; 84100; 85025 ×3; 86704; 93005; 94760; 94762; 99284; G0378 ×3; 36415; 90935; G0257; J1644

== ENCOUNTER 2023-04-11 07:46 | Emergency (ER) | payer SELFPAY ==
[2023-04-11 08:26] LABS: #Basophils 0.1 10x3/uL (0.0-0.2); #Eosinphils 0.5 10x3/uL (0.0-0.5); #Monocytes 0.4 10x3/uL (0.0-1.1); #Neutrophils 5.1 10x3/uL (1.5-8.4); %Basophils 0.7 % (0.0-2.0); %Eosinophils 7.6 % (0.0-6.0); %Lymphocytes 13.6 % (18.0-47.0); %Monocytes 5.2 % (0.0-10.0); %Neutrophils 72.8 % (40.0-75.0); Hematocrit 27.3 % (38.8-50.0); Mean Corpuscular Hemoglobin 29.9 pg (27.0-33.0); Mean Corpuscular Volume 90.7 fl (81.2-95.1); Platelet Count 109 10x3/uL (150-450); RBC Distribution Width 15.3 % (11.5-14.5); Red Blood Cell (RBC) Count 3.01 10x6/uL (4.32-5.72)
[2023-04-11 08:36] LABS: Anion Gap 21 mmol/L (10-20); BUN (Urea Nitrogen) 84 mg/dL (8.4-25.7); Calc. Creatinine Clearance 0 mL/min (70-130); Calcium 9.8 mg/dL (7.8-10.44); Carbon Dioxide 22 mmol/L (22-29); Chloride 94 mmol/L (98-107); Estimated GFR 4; Glucose 98 mg/dL (70-105); Sodium 131 mmol/L (136-145)
[2023-04-11 08:46] LABS: Critical Call Chemistry ERS.JM3 AT 0846; Potassium 6.1 mmol/L (3.5-5.1)
[2023-04-11] MEDS ORDERED: Albuterol 2.5 MG (0.5 mL) NEB ONE (09:21)
[2023-04-11] MEDS ORDERED: Heparin 10,000 UNITS/ 10 ML VIAL SLOW IVP PRN (10:33)
== END 2023-04-11 15:59 | disposition home or self-care (01) ==
LOC: CSHERS 07:46
DX: E11.22 Type 2 diabetes mellitus with diabetic chronic kidney disease (principal); N18.6 End stage renal disease; I12.0 Hypertensive chronic kidney disease with stage 5 chronic kidney disease or end stage renal disease; E87.5 Hyperkalemia; R06.02 Shortness of breath; F17.210 Nicotine dependence, cigarettes, uncomplicated; Z99.2 Dependence on renal dialysis
CPT/HCPCS: 80048; 85025; 90935; 93005; G0257; J1644; J7611

== ENCOUNTER 2024-09-23 15:16 | Outpatient (CLI) | payer MEDICARE | END 2024-09-23 15:17 | disposition home or self-care (01) | LOC: CSHRAD 15:16 | PROVIDERS: ATTEND Specialist | DX: J90 Pleural effusion, not elsewhere classified (principal); J94.8 Other specified pleural conditions; J93.9 Pneumothorax, unspecified; R91.8 Other nonspecific abnormal finding of lung field | CPT/HCPCS: 71045; 71046 ==

== ENCOUNTER 2024-10-14 14:32 | Outpatient (CLI) | payer MEDICARE | END 2024-10-14 14:33 | disposition home or self-care (01) | LOC: CSHRAD 14:32 | PROVIDERS: ATTEND Specialist | DX: Z87.09 Personal history of other diseases of the respiratory system (principal); J94.8 Other specified pleural conditions | CPT/HCPCS: 71046 ==

== ENCOUNTER 2025-01-10 13:00 | Emergency (ER) | payer MEDICARE ==
[2025-01-10] MEDS ORDERED: HYDROcodone/Acetaminophen 7.5/325 mg Tablet PO SCH (15:30)
== END 2025-01-10 17:45 | disposition home or self-care (01) ==
LOC: CSHERS 13:00
DX: M54.31 Sciatica, right side (principal); I12.0 Hypertensive chronic kidney disease with stage 5 chronic kidney disease or end stage renal disease; N18.6 End stage renal disease; F17.210 Nicotine dependence, cigarettes, uncomplicated; Z99.2 Dependence on renal dialysis
CPT/HCPCS: 99282